=== PATIENT | female | born 2000 | race Hispanic/Latino ===

== ENCOUNTER 2022-04-14 13:52 | Emergency (ER) | payer OTHER ==
--- OUTSIDE RECORDS SUMMARY | 2022-04-14 14:00 | XMS REPORT | Continuity of Care Document ---
:2000 Author Organization [facility] t Address [address]fonso[address] [place] [address] Support Name Relationship Address Phone 1 [address] [place] [address] 2 Unavailable [address] [place] [address] [address] Unavailable Unavailable AARON HERNANDEZ SI [address] [phone] [place] [address] ANTHONY PRETTY Other Unavailable Unavailable JAMES HERNANDEZMONY SI [address] [facility] [place] [address] NONE, GIVEN Unavailable UNKNOWN [phone] UNKNONW, UNKN ARAIZA, GERMAINE Unavailable [address] [phone] [place] [address] LAYTON PRETTY GP [address] [phone] [place] [address] KILGORE, MICAELA Unavailable [address] [place] [address] GREEN, SHIN Unavailable [address] [phone] [address] [place] [address] TRIP HERNANDEZ Unavailable [address] [facility] [phone] [address] [place] [address] GREEN JESSICAM Unavailable [address] [facility] [phone] [address] [place] [address] TRIP HERNANDEZ Unavailable [address] [phone] [place] [address] JOHNATHAN HERNANDEZ SI [address] [phone] [place] [address] JOHNATHAN HERNANDEZ SI [address] [facility] [phone] [place] [address] Care Team Providers Name Role Phone NONE, NONE Primary Care Physician Unavailable TERESA CAMPBELL Attending Clinician Unavailable JUNO MANCINI Attending Clinician Unavailable ALANA SADLER Attending Clinician Unavailable Hoang_Chucky Attending Clinician Unavailable Michael De Leon Attending Clinician Unavailable SUSAN WOODARD Attending Clinician Unavailable [email or web address] Attending Clinician Unavailable Teresa Campbell Attending Clinician [phone] ANÍBAL AMADO Attending Clinician Unavailable ELMIRA CRABTREE Attending Clinician Unavailable [email or web address] Attending Clinician Unavailable Briseyda Benjamin Attending Clinician [phone] Shamir Haley V Attending Clinician Unavailable SHU TEIXEIRA Attending Clinician Unavailable JUANITO DAILEY Attending Clinician Unavailable MALACHI DICK Attending Clinician Unavailable TERESA CAMPBELL Admitting Clinician Unavailable Physician, No Primary or Family Admitting Clinician Unavailraina Roa_N Admitting Clinician Unavailable [email or web address]_J Admitting Clinician Unavailable [email or web address] Admitting Clinician Unavailable Payers Payer Name Policy Type Policy Number Effective Date Expiration Date S [facility] MEDICAID [place] [id number] 2021 00:00:00 [facility] [id number] [facility] (MEDICAID REPLACEMENT - HMO) [facility] [id number] [facility] (MEDICAID REPLACEMENT - HMO) [facility] [id number] 2021 [facility] 00:00:00 [facility] 3 SHARE PROGRAM (HMO) [place] [id number] 2020 2021 ADVANTAGE (HMO) 00:00:00 00:00:00 [facility] [id number] [facility] [id number] [facility] [id number] [employer] Problems Condition Condition Condition Status Onset Resolution Last Treating Co mments Source Name Details Category Date Date Treatment Clinician Date CONTRACTIO CONTRACTI Diagnosis Active 2021-06-11 Memoria NS ONS Active 06-11 23:04:00 l 06/11/2021 00:00: Chavez DUBOIS The 00 [place] Abnormal Abnormal Problem Active Privi a glucose Glucose 3-27 Medical tolerance Tolerance 00:00: test Test 00 BACK PAIN BACK PAIN Diagnosis Active 2021-05-20 Memoria Active 05-20 19:49:00 l 05/20/2021 00:00: Chavez hernandez [facility] [place] Nausea and Nausea and Problem Active P rivia vomiting Vomiting -20 Medica l 00:00: 00 Insufficie Insufficie Problem Active P rivia nt nt 1-20 Medical 00:00: care Care 00 19WKS 19WKS Diagnosis Active 2020-032021-01-25 Mem oria PREG/CRAMP PREG/CRAMP 03-27 23:18:00 l ING, ING, 00:00: Ruddy SPOTTING, SPOTTING, 00 VOMITNG VOMITNG Active 01/25/2021 [facility] CHILD CHILD Diagnosis Active 2021-06-02 Me moria 7-16 09:19:00 l Active 00:00: Ruddy 09/14/2020 00 [facility] Cannabinoi Problem Active [facility] Gastritis Problem Active [facility] Itching Itching Problem Active 2021-06-17 Me moria (finding) (finding) 08:12:12 l Active Ruddy Problem 06/17/2021 Medical [facility] Migraine Migraine Problem Active 2021-06-17 Memoria (disorder) (disorder) 08:12:12 l Active [place] Problem 06/17/2021 Medical [facility] Mild Mild Problem Active 2021-06-17 Memor ia depression depression 08:12:12 l (disorder) (disorder) He rmann Active Problem 06/17/2021 Medical [facility] Nausea Nausea Problem Active 2021-06-17 [place] sanjay (finding) (finding) 08:12:12 l Active Ruddy Problem 06/17/2021 [facility] Paresthesi Paresthes Problem Active 2021-06-17 Memoria a of lower [place] of 08:12:12 l extremity lower [place] (finding) extremity (finding) Active Problem 06/17/2021 Medical [facility] Patient Patient Problem Active 2021-06-17 Me moria encounter encounter 08:12:12 l status status Ruddy (finding) (finding) Active Problem 06/17/2021 [facility] Screening Screening Problem Active 2021-06-17 Memoria status status 08:12:12 l (finding) (finding) Herm joe Active Problem 06/17/2021 [facility] Severe Severe Problem Active 2021-06-17 Mem oria depression depression 08:12:12 l (disorder) (disorder) He rmann Active Problem 06/17/2021 [facility] Suicidal Suicidal Problem Active 2021-06-17 Memoria thoughts thoughts 08:12:12 l (finding) (finding) Herm joe Active Problem 06/17/2021 Medical [facility] Vitamin D Vitamin D Problem Active 2021-06-17 Memoria deficiency deficiency 08:12:12 l (disorder) (disorder) He rmann Active Problem 06/17/2021 [facility] OTH OTH Diagnosis Active 2021-06-11 Mem oria 23:04:00 l RELATED RELATED [place] CONDITIONS CONDITIONS , THIRD , THIRD Active [facility] 39 WEEKS 39 WEEKS Diagnosis Active 2021-06-11 Memoria GESTATION GESTATION 23:04:00 l OF OF Ruddy Active [facility] History of History Problem Resolve 2021-06-17 Memoria - of - d 08:12:12 l infectious infectious He ann disease disease (context-d (context-d ependent ependent category) category) Resolved Problem 06/17/2021 [facility] Dizziness Problem Active 2021-06-17 Me moria (finding) Dizziness 08:12:12 l (finding) Ruddy Active Problem 06/17/2021 [facility] Patient Patient Problem Resolve 2021-06-17 2021-06-17 Memoria currently currently d 7-10 08:12:12 08:12:12 l 00:00: Chavez hernandez (finding) (finding) 00 Resolved 09/08/2020 Problem 06/17/2021 [facility] History of Past Illness Condition Condition Condition Status Onset Resolution Last Treating Co mments Source Name Details Category Date Date Treatment Clinician Date Other Other Problem 2021-05-22 2021-05-22 M emoria specified specified 05-20 23:03:24 23:03:24 l diseases diseases 17:00: Chavez n and and 00 conditions conditions complicati complicati ng ng 05/20/2021 05/22/2021 [facility] 36 weeks 36 weeks Problem 2021-05-22 2021-05-22 Memoria gestation gestation 05-20 23:03:24 23:03:24 l of of 17:00: Ruddy 00 05/20/2021 05/22/2021 [facility] Unspecifie Unspecifi Problem 2021-05-22 2021-05-22 Memoria d ed 05-20 23:03:24 23:03:24 l infection infection 17:00: Herm joe of urinary of urinary 00 tract in tract in , , third third trimester trimester 05/20/2021 05/22/2021 [facility] Allergies, Adverse Reactions, Alerts Allergy Allergy Status Severity Reaction(s) Onset Inactive Treating Comm ents Source Name Type Date Date Clinician No Known DA Active U 2004-0 [facility]03 [place] [facility] No Known DA Active U 2004[facility]0 [facility] Drug [facility]03 [place] [facility] 00:[facility]: d s 00 [facility] No Known DA Active U 2004-0 [facility] Food 5[facility]03 [place] Allergie 00:[facility]: d s 00 [facility] No Known DA Active U 2004-0 [facility] Other 5-03 [place] Allergie 00:00: d s [facility] Center No Known DA Active [facility] Social History Social Habit Start Date Stop Date Quantity Comments Source ASSERTION 2020-09-22 [facility] 00:00:00 of Medicine History [facility] ge Alcohol Comment of Medici ne History [facility] ge Alcohol Std Drinks of Med icine History [facility] ge Alcohol Binge of Medicine Tobacco use and 2020-12-03 2020-12-03 Smokeless tobacco [facility] exposure 00:00:00 00:00:00 non-user of Medicine Alcohol intake 2020-12-03 2020-12-03 Lifetime [facility] Col lege 00:00:00 00:00:00 non-drinker of Medicine (finding) History [facility] 2020-12-03 2020-12-03 1 [facility] Tala ge Alcohol Frequency 00:00:00 00:00:00 of Medi cine Social History 2017-09-04 2017-09-04 [facility] 20:19:46 20:19:46 Sex Ass[birth year] At [birth year] [facility] Co ingridege 00:00:00 00:00:00 of Medicine Smoking Status Start Date Stop Date Source Never smoked tobacco [facility] Dominic ege of Medicine Medications Ordered Filled Start Stop Current Ordering Indication Dosage Frequency Signature Comments Components Source Medication Medication Date Date Medication? Clinician (SIG) Name Name ibuprofen Yes 600 mg = 1 Me moria 600 mg oral 4-14 tab, PO, l tablet 19:50: Q6Hnow, # Chavez n 00 60 tab, 1 Refill(s), [id number], 165.1, cm, 06/11/21 22:33:00 CDT, Height, 75.455, kg, 06/11/21 22:33:00 CDT, Weight No 1 tab, Memoria Multivitami 4-14 Route: PO, l ns oral 14:00: Drug Form: Herm joe tablet 00 TAB, Dosing Weight 75.455, kg, Daily, Start date: 06/13/21 9:00:00 CDT, Duration: 30 day, Stop date: 07/12/21 9:00:00 CDT, 0 Saline No Notes: Memoria Flush 0.9% 4-14 (Same as: l 02:00: BD [place] Posiflush) M-M-R II No Notes: Memoria subcutaneou 4-13 (Same as: l s injection 15:00: M-M-R II) H erm (measles-m umps-rubel la virus vaccine 0.5 ml INJ VL) WASTE: F/P - Red; E -Red GIVE PRIOR TO DISCHARGE Lactated No 1,000 mL, [place] Ringers 4-13 1,000 l (Bolus) IV 15:00: ml/hr, Arminda nn 00 Infuse Over: 1 hr, Route: IV, 1,000, Drug form: INJ, ONCALL, Dosing Weight 75.455 kg, Start date: 06/12/21 10:00:00 CDT, Duration: 1 doses or times, For OB hemorrhage per physician direction, 0 oxytocin No Notes: Memoria 4-13 (Same as: l 15:00: Pitocin) Hazardous Drug Group 3:Reproduc tive risk Hazardous Drug -- Refer to safe handling procedure PPE Matrix misoprostol No Notes: [place]jay 4-13 (Same l 15:00: as:Cytotec Ruddy 00 ) Hazardous Drug Group 3:Reproduc tive risk Hazardous Drug -- Refer to safe handling procedure PPE Matrix Take with food methylergon No Notes: [place] ovine 4-13 (Same l 15:00: as:Metherg ine) Hazardous Drug Group 3:Reproduc tive risk Hazardous Drug -- Refer to safe handling procedure PPE Matrix atropine-di No Notes: [place] phenoxylate 4-13 (Same As: l 0.025 15:00: Lomotil) Ruddy mg-2.5 mg 00 MAX Adult oral tablet dose = 8 tabs/day carboprost No Notes: Memor ia 4-13 (Same As: l 15:00: Hemabate) tranexamic No Notes: Memor ia acid + 4-13 (Same As: l Sodium 15:00: Cyklokapro [place] nn Chloride 00 n) 0.9% IV 100 mL ibuprofen No Notes: Memori a 4-13 (Same as: l 15:00: Motrin) "Do Not Crush" Take with food. Lactated No 1,000 mL, [place] sanjay Ringers IV 4-13 Rate: 100 l 1,000 mL 14:03: ml/hr, Ruddy 00 Infuse over: 10 hr, Route: IV, Dosing Weight 75.455 kg, Total Volume: 1,000, see special instructio n for rate while completing infusion from recovery for the 20 Units of Oxytocin., Start date: 06/12/21 9:03:00 CDT, Duration:. .. ondansetron No Notes: [place] 4-13 (Same as: l 14:03: Zofran) MEDICATION WASTE Product Size: 4 mg Product Wasted: ___ mg docusate No Notes: Memoria 4-13 (Same as: l 14:03: Colace) [place] 00 (Do Not Crush) bisacodyl No Notes: Memori a -13 (Same As: l 14:03: Dulcolax, [place] 00 Correctol) (Do Not Crush) "Do Not Crush" lanolin No 1 appl, Memoria topical 06-12 Route: l 14:03: TOP, PRN, Ruddy 00 Drug form: OINT, PRN Other -See Comment, Start date: 06/12/21 9:03:00 CDT, Duration: 30 day, Stop date: 07/12/21 9:02:00 CDT, 0 Dermoplast No Notes: Memor ia Pain 06-12 (Same As: l Relieving 14:03: Dermoplast He rmann 20%-0.5% 00 ) WASTE: topical Aerosol - spray Return to Pharmacy FOR EXTERNAL USE ONLY oxytocin 30 No Notes: [place] sanjay units in NS - Hazardous l 500 mL 14:03: Drug Group Arminda nn (Titrate) 00 3:Reproduc IV 30 unit tive risk Hazardous Drug -- Refer to safe handling procedure PPE Matrix Saline No Notes: Memoria Flush 0.9% 06-12 (Same as: l 14:03: BD [place] 00 Posiflush) acetaminoph No Notes: [place] en-hydrocod - (Same as: l one 325 14:03: [place] mg-5 mg 00 325/5) Do oral tablet not exceed 4gm/day of acetaminop hen. acetaminoph No Notes: Do M emoria en-hydrocod -13 not exceed l one 325 14:03: 4gm/day of Herm joe mg-10 mg 00 acetaminop oral tablet hen. (Same as: [place] 325/10) PNV Yes PO, Daily, Memoria 4-13 0 l 04:40: Refill(s) [place] 00 carboprost No Notes: Memor ia -13 (Same As: l 04:00: Hemabate) [place] 00 tranexamic No Notes: Memor ia acid + 4-13 (Same As: l Sodium 04:00: Cyklokapro [place] nn Chloride 00 n) 0.9% IV 100 mL ibuprofen No Notes: Memori a 4-13 (Same as: l 04:00: Motrin) [place] 00 "Do Not Crush" Take with food. Lactated No 1,000 mL, [place] Ringers 4-13 1,000 l (Bolus) IV 04:00: ml/hr, Arminda nn 00 Infuse Over: 1 hr, Route: IV, 1,000, Drug form: INJ, ONCALL, Dosing Weight 75.455 kg, Start date: 06/11/21 23:00:00 CDT, Duration: 1 doses or times, For OB hemorrhage per physician direction, 0 oxytocin No Notes: Memoria 4-13 (Same as: l 04:00: Pitocin) Ruddy 00 Hazardous Drug Group 3:Reproduc tive risk Hazardous Drug -- Refer to safe handling procedure PPE Matrix misoprostol No Notes: [place]jay 4-13 (Same l 04:00: as:Cytotec Ruddy ) Hazardous Drug Group 3:Reproduc tive risk Hazardous Drug -- Refer to safe handling procedure PPE Matrix Take with food methylergon No Notes: [place] ovine 4-13 (Same l 04:00: as:Metherg Ruddy ine) Hazardous Drug Group 3:Reproduc tive risk Hazardous Drug -- Refer to safe handling procedure PPE Matrix atropine-di No Notes: [place] phenoxylate 4-13 (Same As: l 0.025 04:00: Lomotil) [place] mg-2.5 mg 00 MAX Adult oral tablet dose = 8 tabs/day Ropivacaine No Notes: [place] 0.2% + 4-13 (Same as l fentaNYL 2 03:57: Naropin-Christensen H ermann mcg/ml 00 blimaze) Epidural CADD 200 mL ePHEDrine No Notes: Memori a 4-13 (Same as: l 03:57: ePHEDrine [place] 00 Sulfate) phenylephri 2022-0 No 0.1 mg, 1 M emoria ne 4-13 mL, Route: l 03:57: IVP, Drug [place] 00 form: INJ, Q5Min, Dosing Weight 75.455, kg, PRN for symptomati c BP decrease, Start date: 06/11/21 22:57:00 CDT, Duration: 30 day, Stop date: 07/11/21 22:56:00 CDT, 0 Lactated No 1,000 mL, [place] sanjay Ringers 4-13 Rate: 125 l Injection 03:53: ml/hr, Chavez n IV 1,000 mL 00 Infuse over: 8 hr, Route: IV, Dosing Weight 75.455 kg, Total Volume: 1,000, see special instructio ns when infusing 20 Units of Oxytocin., Start date: 06/11/21 22:53:00 CDT, Duration: 30 day, Stop date: 07/11/21 22:52:00 CDT,... oxytocin 30 No Notes: [place]jay units in NS 4-13 Hazardous l 500 mL 03:53: Drug Group [place] nn (Bolus) IV 00 3:Reproduc 10.02 unit tive risk Hazardous Drug -- Refer to safe handling procedure PPE Matrix oxytocin 30 No Notes: [place] units in NS 4-13 Hazardous l 500 mL IV 03:53: Drug Group He rmann 19.98 unit 00 3:Reproduc tive risk Hazardous Drug -- Refer to safe handling procedure PPE Matrix butorphanol No Notes: [place] sanjay 4-13 (Same As: l 03:53: Stadol) [place] 00 acetaminoph No Notes: [place] en-hydrocod 4-13 (Same as: l one 325 03:53: [place] mg-5 mg 00 325/5) Do oral tablet not exceed 4gm/day of acetaminop hen. acetaminoph No Notes: Do M emoria en-hydrocod 4-13 not exceed l one 325 03:53: 4gm/day of Herm joe mg-10 mg 00 acetaminop oral tablet hen. (Same as: [place] 325/10) ondansetron No Notes: [place] sanjay 4-13 (Same as: l 03:53: Zofran) [place] 00 MEDICATION WASTE Product Size: 4 mg Product Wasted: ___ mg lidocaine No Notes: Memori a 1% -13 (Same as: l injectable 03:53: Xylocaine) H ermann solution lidocaine No Notes: Memori a 1% -13 (Same as: l 03:53: Xylocaine) [place] 00 terbutaline No Notes: El sanjay - DO NOT l 03:53: USE IN [place] PIECE WORK CHECKER AREA (Same As: [place]) Dermoplast No Notes: Memor ia Pain 06-12 (Same As: l Relieving 03:53: Dermoplast He rmann 20%-0.5% ) WASTE: topical Aerosol - spray Return to Pharmacy FOR EXTERNAL USE ONLY oxytocin 30 No Notes: [place] units in NS - Hazardous l 500 mL 03:53: Drug Group [place] nn (Titrate) 00 3:Reproduc IV 30 unit tive risk Hazardous Drug -- Refer to safe handling procedure PPE Matrix Cephalexin Yes 500 mg = 1 M emoria 500 MG Oral - cap, PO, l Capsule 02:55: BID, X 7 Chavez n [Keflex] day, # 14 cap, 0 Refill(s), Pharmacy: [facility] #[id number], 162.56, cm, 05/20/21 19:41:00 CDT, Height, 71.818, kg, 05/20/21 19:41:00 CDT, Weight Acetaminoph No Notes: [place]jay en 325 MG / - (Same as: l Hydrocodone 01:03: [place] Arminda nn Bitartrate 00 325/5) Do 5 MG Oral not exceed Tablet 4gm/day of acetaminop hen. Metoclopram 2020-03 Yes 10 mg = 1 M emoria ld 10 MG 1-27 tab, PO, l Oral Tablet 05:37: QID, X 10 H ermann [Reglan] day, # 40 tab, 0 Refill(s) Ondansetron 2020-03 Yes 4 mg = 1 Me moria 4 MG 1-27 tab, PO, l Disintegrat 05:37: TID, PRN He rmann ing Tablet 00 Nausea / Vomiting, Dissolve tab under tongue, X 3 day, # 10 tab, 0 Refill(s) Cephalexin 2020-03 Yes 500 mg = 1 M emoria 500 MG Oral 03-28 cap, PO, l Capsule 05:37: BID, X 7 Chavez n [Keflex] 00 day, # 14 cap, 0 Refill(s) Rocephin + 2020-03 No Notes: Memor ia Sodium 03-28 (Same As: l Chloride 05:08: Rocephin). Her pierson 0.9% IV 100 00 Use with mL 100 mL NS and infuse over 30 min MEDICATION WASTE Product Size: 1000 mg Product Wasted: ___ mg Benadryl 2020-03 No 12.5 mg, Memor ia 03-28 Route: l 04:52: IVP, ONCE, [place] Dosing Weight 65.199, kg, Priority: STAT, Start date: 01/25/21 22:52:00 MUSEUM LIBRARIAN, Stop date: 01/25/21 22:52:00 MUSEUM LIBRARIAN Saline 2020-03 No Notes: Memoria Flush 0.9% 03-28 Same as: l 03:24: BD [place] Posiflush Sterile Sodium 2020-03 No 1,000 mL, Memori a Chloride 03-28 1000 l 0.9% 03:24: ml/hr, Ruddy (Bolus) IV 00 Infuse Over: 1 hr, Route: IV, 1,000, Drug form: INJ, ONCE, Priority: STAT, Dosing Weight 60.966 kg, Start date: 01/25/21 21:24:00 MUSEUM LIBRARIAN, Stop date: 01/25/21 21:24:00 MUSEUM LIBRARIAN, 0 Metoclopram 2020-03 No Notes: [place] sanjay ld 03-28 (Same as: l 03:24: Reglan) [place] 00 NS (Bolus) 2020-03 No 1,000 mL, Me moria IV 03-28 1,000 l 03:24: ml/hr, [place] 00 Infuse Over: 1 hr, Route: IV, 1,000, Drug form: INJ, ONCE, Priority: STAT, Dosing Weight 60.966 kg, Start date: 01/25/21 21:24:00 MUSEUM LIBRARIAN, Stop date: 01/25/21 21:24:00 MUSEUM LIBRARIAN, 0 2020-03 Yes 1{capsu Take 1 Bayl or Vit-Fe 0-04 le} capsule by [place] Fumarate-FA 08:22: mouth of ( 32 daily. Medicin OR) e 2020-03 Yes 1{capsu Take 1 Bayl or Vit-Fe 0-04 le} capsule by [place] Fumarate-FA 08:22: mouth of ( 32 daily. Medicin OR) e 2020-03 Yes 1{capsu Take 1 Bayl or Vit-Fe 0-04 le} capsule by [place] Fumarate-FA 08:22: mouth of ( 32 daily. Medicin OR) e Vitamin D3 Yes 50,000 Memor ia 50,000 intl 9-11 IntlUnit = l units oral 21:09: 1 cap, PO, H ermann capsule 00 qWeek, # 12 cap, 0 Refill(s), Pharmacy: [facility] [id number] sertraline Yes 25 mg = 1 Me moria 25 mg oral 9-11 tab, PO, l tablet 21:09: Daily, # Ruddy 00 30 tab, 1 Refill(s), Pharmacy: [facility] [id number] Vitamin D3 Yes 50,000 Memor ia 50,000 intl 9-11 IntlUnit = l units oral 21:09: 1 cap, PO, H ermann capsule 00 qWeek, # 12 cap, 0 Refill(s), Pharmacy: [facility] [id number] sertraline Yes 25 mg = 1 Me moria 25 mg oral 9-11 tab, PO, l tablet 21:09: Daily, # [place] 00 30 tab, 1 Refill(s), Pharmacy: [facility] [address] Vitamin D3 Yes 50,000 Memor ia 50,000 intl 9-11 IntlUnit = l units oral 21:09: 1 cap, PO, H ermann capsule 00 qWeek, # 12 cap, 0 Refill(s), Pharmacy: [facility] [id number] sertraline Yes 25 mg = 1 Me moria 25 mg oral 9-11 tab, PO, l tablet 21:09: Daily, # [place] 00 30 tab, 1 Refill(s), Pharmacy: [facility] [id number] levocetiriz 2018-0 Yes 5 mg = 1 Me moria ine 5 mg 7-20 tab, PO, l oral tablet 18:55: QPM, PRN He rmann 00 itchinig, # 30 tab, 0 Refill(s), Pharmacy: [facility] [id number] SUMAtriptan 2018-0 No 25 mg = 1 M emoria 25 mg oral 7-20 tab, PO, l tablet 18:55: Daily, PRN Arminda nn 00 for migraine headache, may repeat dose in 2 hours if needed, X 18 day, # 18 tab, 0 Refill(s), Pharmacy: [facility] [id number] levocetiriz 2018-0 Yes 5 mg = 1 Me moria ine 5 mg 7-20 tab, PO, l oral tablet 18:55: QPM, PRN He rmann 00 itchinig, # 30 tab, 0 Refill(s), Pharmacy: [facility] [id number] SUMAtriptan 2018-0 No 25 mg = 1 M emoria 25 mg oral 7-20 tab, PO, l tablet 18:55: Daily, PRN Arminda nn 00 for migraine headache, may repeat dose in 2 hours if needed, X 18 day, # 18 tab, 0 Refill(s), Pharmacy: [facility] [id number] levocetiriz 2018-0 Yes 5 mg = 1 Me moria ine 5 mg 7-20 tab, PO, l oral tablet 18:55: QPM, PRN rmann 00 itchinig, # 30 tab, 0 Refill(s), Pharmacy: [facility] [id number] SUMAtriptan 2018-0 No 25 mg = 1 M emoria 25 mg oral 7-20 tab, PO, l tablet 18:55: Daily, PRN Arminda nn 00 for migraine headache, may repeat dose in 2 hours if needed, X 18 day, # 18 tab, 0 Refill(s), Pharmacy: [facility] [id number] azithromyci azithromyci No azithromyc [facility]ia n 500 mg n 500 mg in 500 mg Me dical tablet TK 2 tablet TK 2 tablet TK TS PO ONCE TS PO ONCE 2 TS PO FOR 1 DOSE FOR 1 DOSE ONCE FOR 1 DOSE Biotene Dry Biotene Dry No 30mL BID Biotene [facility] Mouth Oral Mouth Oral Dry Mouth Medical Rinse Rinse Oral Rinse mouthwash mouthwash mouthwash Take 30 mL Take 30 mL Take 30 mL twice a day twice a day twice a by mucous by mucous day by route for route for mucous 30 days. 30 days. route for 30 days. cholecalcif cholecalcif No cholecalci [facility] marcie marcie ferol Medical (vitamin (vitamin (vitamin D3) 1,250 D3) 1,250 D3) 1,250 mcg (50,000 mcg (50,000 mcg unit) unit) (50,000 capsule TK capsule TK unit) 1 C PO Q WK 1 C PO Q WK capsule TK FOR 12 WKS FOR 12 WKS 1 C PO Q WK FOR 12 WKS clindamycin clindamycin No clindamyci [facility] 2 % vaginal 2 % vaginal n 2 % Medical cream I 1 cream I 1 vaginal APL APL cream I 1 VAGINALLY VAGINALLY APL QD FOR 7 QD FOR 7 VAGINALLY DAYS DAYS QD FOR 7 DAYS clobetasol clobetasol No clobetasol [facility] 0.05 % 0.05 % 0.05 % Medical topical topical topical cream APPLY cream APPLY cream A THIN A THIN APPLY A LAYER TO LAYER TO THIN LAYER THE THE TO THE AFFECTED AFFECTED AFFECTED AREA(S) BY AREA(S) BY AREA(S) BY TOPICAL TOPICAL TOPICAL ROUTE 2 ROUTE 2 ROUTE 2 TIMES PER TIMES PER TIMES PER DAY DAY DAY doxycycline doxycycline No doxycyclin [facility] hyclate 100 hyclate 100 e hyclate Medical mg tablet mg tablet 100 mg TK 1 T PO TK 1 T PO tablet TK BID FOR 7 BID FOR 7 1 T PO BID DAYS DAYS FOR 7 DAYS doxycycline doxycycline No doxycyclin [facility] monohydrate monohydrate e M edical 100 mg 100 mg monohydrat tablet 1 tablet 1 e 100 mg p.o BID p.o BID tablet 1 p.o BID fluconazole fluconazole No 1 Q1D fluconazol [facility] 150 mg 150 mg e 150 mg Medical tablet Take tablet Take tablet 1 tablet 1 tablet Take 1 every day every day tablet by oral by oral every day route. route. by oral route. Kristalose Kristalose No Kristalose [facility] 20 gram 20 gram 20 gram Medica l oral packet oral packet oral MIX AND MIX AND packet MIX DRINK 1 DRINK 1 AND DRINK PACKET BY PACKET BY 1 PACKET MOUTH EVERY MOUTH EVERY BY MOUTH DAY DAY EVERY DAY lorazepam 1 lorazepam 1 No lorazepam [facility] mg tablet mg tablet 1 mg Medic al TAKE ONE TAKE ONE tablet (1) (1) TAKE ONE TABLET(S) TABLET(S) (1) BY MOUTH 1 BY MOUTH 1 TABLET(S) HOUR PRIOR HOUR PRIOR BY MOUTH 1 TO SURGERY TO SURGERY HOUR PRIOR WITH A WITH A TO SURGERY SMALL SIP SMALL SIP WITH A OF WATER. OF WATER. SMALL SIP OF WATER. metronidazo metronidazo No metronidaz [facility] le 500 mg le 500 mg ole 500 mg Medical tablet TAKE tablet TAKE tablet 1 TABLET BY 1 TABLET BY TAKE 1 MOUTH TWICE MOUTH TWICE TABLET BY DAILY FOR 7 DAILY FOR 7 MOUTH DAYS DAYS TWICE DAILY FOR 7 DAYS nystatin nystatin No nystatin [facility] via 100,000 100,000 100,000 Medica l unit/gram unit/gram unit/gram topical topical topical cream APPLY cream APPLY cream TO THE TO THE APPLY TO AFFECTED AFFECTED THE AREA(S) BY AREA(S) BY AFFECTED TOPICAL TOPICAL AREA(S) BY ROUTE 2 ROUTE 2 TOPICAL TIMES PER TIMES PER ROUTE 2 DAY DAY TIMES PER DAY nystatin nystatin No nystatin [facility] via 100,000 100,000 100,000 Medica l unit/gram unit/gram unit/gram topical topical topical ointment ointment ointment JAVIER EXT AA JAVIER EXT AA JAVIER EXT AA BID BID BID Off Deep Off Deep No Off Deep Nat via Self 25 % Self 25 % Self 25 % Medical topical topical topical spray spray spray ondansetron ondansetron No ondansetro [facility] 4 mg 4 mg n 4 mg Medical disintegrat disintegrat disintegra ing tablet ing tablet ting Place [address] Place 1 tablet tablet [address] 1 times a day times a day tablet 3 by by times a translingua translingua day by l route for l route for translingu 15 days. 15 days. al route for 15 days. pantoprazol pantoprazol No pantoprazo [facility] e 20 mg e 20 mg le 20 mg Medic al tablet,nandini tablet,nandini tablet,del yed release yed release ayed Take 2 Take 2 release tablets tablets Take 2 every day every day tablets by oral by oral every day route for route for by oral 30 days. 30 days. route for 30 days. pantoprazol pantoprazol No pantoprazo [facility] e 40 mg e 40 mg le 40 mg Medic al tablet,nandini tablet,nandini tablet,del yed release yed release ayed Take 1 Take 1 release tablet tablet Take 1 every day every day tablet by oral by oral every day route at route at by oral bedtime for bedtime for route at 60 days. 60 days. bedtime for 60 days. Previfem Previfem No Previfem [facility] via 0.25 mg-35 0.25 mg-35 0.25 mg-35 Medical mcg tablet mcg tablet mcg tablet Take 1 Take 1 Take 1 tablet tablet tablet every day every day every day by oral by oral by oral route for route for route for 28 days. 28 days. 28 days. scopolamine scopolamine No scopolamin [facility] 1 mg over 3 1 mg over 3 e 1 mg Medical days days over 3 transdermal transdermal days patch Apply patch Apply transderma 1 patch 1 patch l patch every 72 every 72 Apply 1 hours by hours by patch transdermal transdermal every 72 route as route as hours by directed. directed. transderma l route as directed. sertraline sertraline No sertraline [facility] 25 mg 25 mg 25 mg Medical tablet tablet tablet terconazole terconazole No 1applic Q1D terconazol [facility] 0.4 % 0.4 % ator(s) e 0.4 % Medical vaginal vaginal ful vaginal cream cream cream Insert 1 Insert 1 Insert 1 applicatorf applicatorf applicator ul every ul every ful every day by day by day by vaginal vaginal vaginal route for 7 route for 7 route for days. days. 7 days. triamcinolo triamcinolo No triamcinol [facility] ne ne one Medical acetonide acetonide acetonide 0.1 % 0.1 % 0.1 % topical topical topical cream APPLY cream APPLY cream THIN LAYER THIN LAYER APPLY THIN TOPICALLY TOPICALLY LAYER TO THE TO THE TOPICALLY AFFECTED AFFECTED TO THE AREA TWICE AREA TWICE AFFECTED DAILY DAILY AREA TWICE DAILY Vitafol Vitafol No Vitafol [facility] Ultra 29 mg Ultra 29 mg Ultra 29 Medical iron-1 iron-1 mg iron-1 mg-200 mg mg-200 mg mg-200 mg capsule capsule capsule TAKE 1 TAKE 1 TAKE 1 CAPSULE BY CAPSULE BY CAPSULE BY MOUTH DAILY MOUTH DAILY MOUTH DAILY Zofran 4 mg Zofran 4 mg No 1 TID Zofran 4 [facility] tablet Take tablet Take mg tablet Medical 1 tablet 3 1 tablet 3 Take 1 times a day times a day tablet 3 by oral by oral times a route for route for day by 15 days. 15 days. oral route for 15 days. azithromyci azithromyci No azithromyc [facility] n 500 mg n 500 mg in 500 mg Me dical tablet TK 2 tablet TK 2 tablet TK TS PO ONCE TS PO ONCE 2 TS PO FOR 1 DOSE FOR 1 DOSE ONCE FOR 1 DOSE Biotene Dry Biotene Dry No 30mL BID Biotene [facility] Mouth Oral Mouth Oral Dry Mouth Medical Rinse Rinse Oral Rinse mouthwash mouthwash mouthwash Take 30 mL Take 30 mL Take 30 mL twice a day twice a day twice a by mucous by mucous day by route for route for mucous 30 days. 30 days. route for 30 days. cholecalcif cholecalcif No cholecalci [facility] marcie marcie ferol Medical (vitamin (vitamin (vitamin D3) 1,250 D3) 1,250 D3) 1,250 mcg (50,000 mcg (50,000 mcg unit) unit) (50,000 capsule TK capsule TK unit) 1 C PO Q WK 1 C PO Q WK capsule TK FOR 12 WKS FOR 12 WKS 1 C PO Q WK FOR 12 WKS clindamycin clindamycin No clindamyci [facility] 2 % vaginal 2 % vaginal n 2 % Medical cream I 1 cream I 1 vaginal APL APL cream I 1 VAGINALLY VAGINALLY APL QD FOR 7 QD FOR 7 VAGINALLY DAYS DAYS QD FOR 7 DAYS clobetasol clobetasol No clobetasol [facility] 0.05 % 0.05 % 0.05 % Medical topical topical topical cream APPLY cream APPLY cream A THIN A THIN APPLY A LAYER TO LAYER TO THIN LAYER THE THE TO THE AFFECTED AFFECTED AFFECTED AREA(S) BY AREA(S) BY AREA(S) BY TOPICAL TOPICAL TOPICAL ROUTE 2 ROUTE 2 ROUTE 2 TIMES PER TIMES PER TIMES PER DAY DAY DAY doxycycline doxycycline No doxycyclin [facility] hyclate 100 hyclate 100 e hyclate Medical mg tablet mg tablet 100 mg TK 1 T PO TK 1 T PO tablet TK BID FOR 7 BID FOR 7 1 T PO BID DAYS DAYS FOR 7 DAYS doxycycline doxycycline No doxycyclin [facility] monohydrate monohydrate e M edical 100 mg 100 mg monohydrat tablet 1 tablet 1 e 100 mg p.o BID p.o BID tablet 1 p.o BID fluconazole fluconazole No 1 Q1D fluconazol [facility] 150 mg 150 mg e 150 mg Medical tablet Take tablet Take tablet 1 tablet 1 tablet Take 1 every day every day tablet by oral by oral every day route. route. by oral route. Kristalose Kristalose No Kristalose [facility] 20 gram 20 gram 20 gram Medica l oral packet oral packet oral MIX AND MIX AND packet MIX DRINK 1 DRINK 1 AND DRINK PACKET BY PACKET BY 1 PACKET MOUTH EVERY MOUTH EVERY BY MOUTH DAY DAY EVERY DAY lorazepam 1 lorazepam 1 No lorazepam [facility] mg tablet mg tablet 1 mg Medic al TAKE ONE TAKE ONE tablet (1) (1) TAKE ONE TABLET(S) TABLET(S) (1) BY MOUTH 1 BY MOUTH 1 TABLET(S) HOUR PRIOR HOUR PRIOR BY MOUTH 1 TO SURGERY TO SURGERY HOUR PRIOR WITH A WITH A TO SURGERY SMALL SIP SMALL SIP WITH A OF WATER. OF WATER. SMALL SIP OF WATER. metronidazo metronidazo No metronidaz [facility] le 500 mg le 500 mg ole 500 mg Medical tablet TAKE tablet TAKE tablet 1 TABLET BY 1 TABLET BY TAKE 1 MOUTH TWICE MOUTH TWICE TABLET BY DAILY FOR 7 DAILY FOR 7 MOUTH DAYS DAYS TWICE DAILY FOR 7 DAYS nystatin nystatin No nystatin Nat via 100,000 100,000 100,000 Medica l unit/gram unit/gram unit/gram topical topical topical cream APPLY cream APPLY cream TO THE TO THE APPLY TO AFFECTED AFFECTED THE AREA(S) BY AREA(S) BY AFFECTED TOPICAL TOPICAL AREA(S) BY ROUTE 2 ROUTE 2 TOPICAL TIMES PER TIMES PER ROUTE 2 DAY DAY TIMES PER DAY nystatin nystatin No nystatin Nat via 100,000 100,000 100,000 Medica l unit/gram unit/gram unit/gram topical topical topical ointment ointment ointment JAVIER EXT AA JAVIER EXT AA JAVIER EXT AA BID BID BID Off Deep Off Deep No Off Deep Nat via Self 25 % Self 25 % Self 25 % Medical topical topical topical spray spray spray ondansetron ondansetron No ondansetro [facility] 4 mg 4 mg n 4 mg Medical disintegrat disintegrat disintegra ing tablet ing tablet ting Place [address] Place 1 tablet tablet [address] 1 times a day times a day tablet 3 by by times a translingua translingua day by l route for l route for translingu 15 days. 15 days. al route for 15 days. pantoprazol pantoprazol No pantoprazo [facility] e 20 mg e 20 mg le 20 mg Medic al tablet,nandini tablet,nandini tablet,del yed release yed release ayed Take 2 Take 2 release tablets tablets Take 2 every day every day tablets by oral by oral every day route for route for by oral 30 days. 30 days. route for 30 days. pantoprazol pantoprazol No pantoprazo [facility] e 40 mg e 40 mg le 40 mg Medic al tablet,nandini tablet,nandini tablet,del yed release yed release ayed Take 1 Take 1 release tablet tablet Take 1 every day every day tablet by oral by oral every day route at route at by oral bedtime for bedtime for route at 60 days. 60 days. bedtime for 60 days. Previfem Previfem No Previfem [facility] via 0.25 mg-35 0.25 mg-35 0.25 mg-35 Medical mcg tablet mcg tablet mcg tablet Take 1 Take 1 Take 1 tablet tablet tablet every day every day every day by oral by oral by oral route for route for route for 28 days. 28 days. 28 days. scopolamine scopolamine No scopolamin [facility] 1 mg over 3 1 mg over 3 e 1 mg Medical days days over 3 transdermal transdermal days patch Apply patch Apply transderma 1 patch 1 patch l patch every 72 every 72 Apply 1 hours by hours by patch transdermal transdermal every 72 route as route as hours by directed. directed. transderma l route as directed. sertraline sertraline No sertraline [facility] 25 mg 25 mg 25 mg Medical tablet tablet tablet terconazole terconazole No 1applic Q1D terconazol [facility] 0.4 % 0.4 % ator(s) e 0.4 % Medical vaginal vaginal ful vaginal cream cream cream Insert 1 Insert 1 Insert 1 applicatorf applicatorf applicator ul every ul every ful every day by day by day by vaginal vaginal vaginal route for 7 route for 7 route for days. days. 7 days. triamcinolo triamcinolo No triamcinol [facility] ne ne one Medical acetonide acetonide acetonide 0.1 % 0.1 % 0.1 % topical topical topical cream APPLY cream APPLY cream THIN LAYER THIN LAYER APPLY THIN TOPICALLY TOPICALLY LAYER TO THE TO THE TOPICALLY AFFECTED AFFECTED TO THE AREA TWICE AREA TWICE AFFECTED DAILY DAILY AREA TWICE DAILY Vitafol Vitafol No Vitafol [facility] Ultra 29 mg Ultra 29 mg Ultra 29 Medical iron-1 iron-1 mg iron-1 mg-200 mg mg-200 mg mg-200 mg capsule capsule capsule TAKE 1 TAKE 1 TAKE 1 CAPSULE BY CAPSULE BY CAPSULE BY MOUTH DAILY MOUTH DAILY MOUTH DAILY Zofran 4 mg Zofran 4 mg No 1 TID Zofran 4 [facility] tablet Take tablet Take mg tablet Medical 1 tablet 3 1 tablet 3 Take 1 times a day times a day tablet 3 by oral by oral times a route for route for day by 15 days. 15 days. oral route for 15 days. azithromyci azithromyci No azithromyc [facility] n 500 mg n 500 mg in 500 mg Me dical tablet TK 2 tablet TK 2 tablet TK TS PO ONCE TS PO ONCE 2 TS PO FOR 1 DOSE FOR 1 DOSE ONCE FOR 1 DOSE Biotene Dry Biotene Dry No 30mL BID Biotene [facility] Mouth Oral Mouth Oral Dry Mouth Medical Rinse Rinse Oral Rinse mouthwash mouthwash mouthwash Take 30 mL Take 30 mL Take 30 mL twice a day twice a day twice a by mucous by mucous day by route for route for mucous 30 days. 30 days. route for 30 days. cholecalcif cholecalcif No cholecalci [facility] marcie marcie ferol Medical (vitamin (vitamin (vitamin D3) 1,250 D3) 1,250 D3) 1,250 mcg (50,000 mcg (50,000 mcg unit) unit) (50,000 capsule TK capsule TK unit) 1 C PO Q WK 1 C PO Q WK capsule TK FOR 12 WKS FOR 12 WKS 1 C PO Q WK FOR 12 WKS clindamycin clindamycin No clindamyci [facility] 2 % vaginal 2 % vaginal n 2 % Medical cream I 1 cream I 1 vaginal APL APL cream I 1 VAGINALLY VAGINALLY APL QD FOR 7 QD FOR 7 VAGINALLY DAYS DAYS QD FOR 7 DAYS clobetasol clobetasol No clobetasol [facility] 0.05 % 0.05 % 0.05 % Medical topical topical topical cream APPLY cream APPLY cream A THIN A THIN APPLY A LAYER TO LAYER TO THIN LAYER THE THE TO THE AFFECTED AFFECTED AFFECTED AREA(S) BY AREA(S) BY AREA(S) BY TOPICAL TOPICAL TOPICAL ROUTE 2 ROUTE 2 ROUTE 2 TIMES PER TIMES PER TIMES PER DAY DAY DAY doxycycline doxycycline No doxycyclin [facility] hyclate 100 hyclate 100 e hyclate Medical mg tablet mg tablet 100 mg TK 1 T PO TK 1 T PO tablet TK BID FOR 7 BID FOR 7 1 T PO BID DAYS DAYS FOR 7 DAYS doxycycline doxycycline No doxycyclin [facility] monohydrate monohydrate e M edical 100 mg 100 mg monohydrat tablet 1 tablet 1 e 100 mg p.o BID p.o BID tablet 1 p.o BID fluconazole fluconazole No 1 Q1D fluconazol [facility] 150 mg 150 mg e 150 mg Medical tablet Take tablet Take tablet 1 tablet 1 tablet Take 1 every day every day tablet by oral by oral every day route. route. by oral route. Kristalose Kristalose No Kristalose [facility] 20 gram 20 gram 20 gram Medica l oral packet oral packet oral MIX AND MIX AND packet MIX DRINK 1 DRINK 1 AND DRINK PACKET BY PACKET BY 1 PACKET MOUTH EVERY MOUTH EVERY BY MOUTH DAY DAY EVERY DAY lorazepam 1 lorazepam 1 No lorazepam [facility] mg tablet mg tablet 1 mg Medic al TAKE ONE TAKE ONE tablet (1) (1) TAKE ONE TABLET(S) TABLET(S) (1) BY MOUTH 1 BY MOUTH 1 TABLET(S) HOUR PRIOR HOUR PRIOR BY MOUTH 1 TO SURGERY TO SURGERY HOUR PRIOR WITH A WITH A TO SURGERY SMALL SIP SMALL SIP WITH A OF WATER. OF WATER. SMALL SIP OF WATER. metronidazo metronidazo No metronidaz [facility] le 500 mg le 500 mg ole 500 mg Medical tablet TAKE tablet TAKE tablet 1 TABLET BY 1 TABLET BY TAKE 1 MOUTH TWICE MOUTH TWICE TABLET BY DAILY FOR 7 DAILY FOR 7 MOUTH DAYS DAYS TWICE DAILY FOR 7 DAYS nystatin nystatin No nystatin Nat via 100,000 100,000 100,000 Medica l unit/gram unit/gram unit/gram topical topical topical cream APPLY cream APPLY cream TO THE TO THE APPLY TO AFFECTED AFFECTED THE AREA(S) BY AREA(S) BY AFFECTED TOPICAL TOPICAL AREA(S) BY ROUTE 2 ROUTE 2 TOPICAL TIMES PER TIMES PER ROUTE 2 DAY DAY TIMES PER DAY nystatin nystatin No nystatin [facility] via 100,000 100,000 100,000 Medica l unit/gram unit/gram unit/gram topical topical topical ointment ointment ointment JAVIER EXT AA JAVIER EXT AA JAVIER EXT AA BID BID BID Off Deep Off Deep No Off Deep Nat via Self 25 % Self 25 % Self 25 % Medical topical topical topical spray spray spray ondansetron ondansetron No ondansetro [facility] 4 mg 4 mg n 4 mg Medical disintegrat disintegrat disintegra ing tablet ing tablet ting Place [address] Place 1 tablet tablet [address] 1 times a day times a day tablet 3 by by times a translingua translingua day by l route for l route for translingu 15 days. 15 days. al route for 15 days. pantoprazol pantoprazol No pantoprazo [facility] e 20 mg e 20 mg le 20 mg Medic al tablet,nandini tablet,nandini tablet,del yed release yed release ayed Take 2 Take 2 release tablets tablets Take 2 every day every day tablets by oral by oral every day route for route for by oral 30 days. 30 days. route for 30 days. pantoprazol pantoprazol No pantoprazo [facility] e 40 mg e 40 mg le 40 mg Medic al tablet,nandini tablet,nandini tablet,del yed release yed release ayed Take 1 Take 1 release tablet tablet Take 1 every day every day tablet by oral by oral every day route at route at by oral bedtime for bedtime for route at 60 days. 60 days. bedtime for 60 days. ParaGard T ParaGard T No ParaGard T [facility] [id number] Med ical square mm square mm square mm intrauterin intrauterin intrauteri e device e device ne device Previfem Previfem No Previfem Nat via 0.25 mg-35 0.25 mg-35 0.25 mg-35 Medical mcg tablet mcg tablet mcg tablet Take 1 Take 1 Take 1 tablet tablet tablet every day every day every day by oral by oral by oral route for route for route for 28 days. 28 days. 28 days. scopolamine scopolamine No scopolamin [facility] 1 mg over 3 1 mg over 3 e 1 mg Medical days days over 3 transdermal transdermal days patch Apply patch Apply transderma 1 patch 1 patch l patch every 72 every 72 Apply 1 hours by hours by patch transdermal transdermal every 72 route as route as hours by directed. directed. transderma l route as directed. sertraline sertraline No sertraline [facility] 25 mg 25 mg 25 mg Medical tablet tablet tablet terconazole terconazole No 1applic Q1D terconazol [facility] 0.4 % 0.4 % ator(s) e 0.4 % Medical vaginal vaginal ful vaginal cream cream cream Insert 1 Insert 1 Insert 1 applicatorf applicatorf applicator ul every ul every ful every day by day by day by vaginal vaginal vaginal route for 7 route for 7 route for days. days. 7 days. triamcinolo triamcinolo No triamcinol [facility] ne ne one Medical acetonide acetonide acetonide 0.1 % 0.1 % 0.1 % topical topical topical cream APPLY cream APPLY cream THIN LAYER THIN LAYER APPLY THIN TOPICALLY TOPICALLY LAYER TO THE TO THE TOPICALLY AFFECTED AFFECTED TO THE AREA TWICE AREA TWICE AFFECTED DAILY DAILY AREA TWICE DAILY Vitafol Vitafol No Vitafol [facility] Ultra 29 mg Ultra 29 mg Ultra 29 Medical iron-1 iron-1 mg iron-1 mg-200 mg mg-200 mg mg-200 mg capsule capsule capsule TAKE 1 TAKE 1 TAKE 1 CAPSULE BY CAPSULE BY CAPSULE BY MOUTH DAILY MOUTH DAILY MOUTH DAILY Zofran 4 mg Zofran 4 mg No 1 TID Zofran 4 [facility] tablet Take tablet Take mg tablet Medical 1 tablet 3 1 tablet 3 Take 1 times a day times a day tablet 3 by oral by oral times a route for route for day by 15 days. 15 days. oral route for 15 days. azithromyci azithromyci No azithromyc [facility] n 500 mg n 500 mg in 500 mg Me dical tablet TK 2 tablet TK 2 tablet TK TS PO ONCE TS PO ONCE 2 TS PO FOR 1 DOSE FOR 1 DOSE ONCE FOR 1 DOSE Biotene Dry Biotene Dry No 30mL BID Biotene [facility] Mouth Oral Mouth Oral Dry Mouth Medical Rinse Rinse Oral Rinse mouthwash mouthwash mouthwash Take 30 mL Take 30 mL Take 30 mL twice a day twice a day twice a by mucous by mucous day by route for route for mucous 30 days. 30 days. route for 30 days. cholecalcif cholecalcif No cholecalci [facility] marcie marcie ferol Medical (vitamin (vitamin (vitamin D3) 1,250 D3) 1,250 D3) 1,250 mcg (50,000 mcg (50,000 mcg unit) unit) (50,000 capsule TK capsule TK unit) 1 C PO Q WK 1 C PO Q WK capsule TK FOR 12 WKS FOR 12 WKS 1 C PO Q WK FOR 12 WKS clindamycin clindamycin No clindamyci [facility] 2 % vaginal 2 % vaginal n 2 % Medical cream I 1 cream I 1 vaginal APL APL cream I 1 VAGINALLY VAGINALLY APL QD FOR 7 QD FOR 7 VAGINALLY DAYS DAYS QD FOR 7 DAYS clobetasol clobetasol No clobetasol [facility] 0.05 % 0.05 % 0.05 % Medical topical topical topical cream APPLY cream APPLY cream A THIN A THIN APPLY A LAYER TO LAYER TO THIN LAYER THE THE TO THE AFFECTED AFFECTED AFFECTED AREA(S) BY AREA(S) BY AREA(S) BY TOPICAL TOPICAL TOPICAL ROUTE 2 ROUTE 2 ROUTE 2 TIMES PER TIMES PER TIMES PER DAY DAY DAY doxycycline doxycycline No doxycyclin [facility] hyclate 100 hyclate 100 e hyclate Medical mg tablet mg tablet 100 mg TK 1 T PO TK 1 T PO tablet TK BID FOR 7 BID FOR 7 1 T PO BID DAYS DAYS FOR 7 DAYS doxycycline doxycycline No doxycyclin [facility] monohydrate monohydrate e M edical 100 mg 100 mg monohydrat tablet 1 tablet 1 e 100 mg p.o BID p.o BID tablet 1 p.o BID fluconazole fluconazole No 1 Q1D fluconazol [facility] 150 mg 150 mg e 150 mg Medical tablet Take tablet Take tablet 1 tablet 1 tablet Take 1 every day every day tablet by oral by oral every day route. route. by oral route. Kristalose Kristalose No Kristalose [facility] 20 gram 20 gram 20 gram Medica l oral packet oral packet oral MIX AND MIX AND packet MIX DRINK 1 DRINK 1 AND DRINK PACKET BY PACKET BY 1 PACKET MOUTH EVERY MOUTH EVERY BY MOUTH DAY DAY EVERY DAY lorazepam 1 lorazepam 1 No lorazepam [facility] mg tablet mg tablet 1 mg Medic al TAKE ONE TAKE ONE tablet (1) (1) TAKE ONE TABLET(S) TABLET(S) (1) BY MOUTH 1 BY MOUTH 1 TABLET(S) HOUR PRIOR HOUR PRIOR BY MOUTH 1 TO SURGERY TO SURGERY HOUR PRIOR WITH A WITH A TO SURGERY SMALL SIP SMALL SIP WITH A OF WATER. OF WATER. SMALL SIP OF WATER. metronidazo metronidazo No metronidaz [facility] le 500 mg le 500 mg ole 500 mg Medical tablet TAKE tablet TAKE tablet 1 TABLET BY 1 TABLET BY TAKE 1 MOUTH TWICE MOUTH TWICE TABLET BY DAILY FOR 7 DAILY FOR 7 MOUTH DAYS DAYS TWICE DAILY FOR 7 DAYS nitrofurant nitrofurant No nitrofuran [facility] oin oin toin Medical monohydrate monohydrate monohydrat /macrocryst /macrocryst e/macrocry als 100 mg als 100 mg stals 100 capsule capsule mg capsule Take 1 Take 1 Take 1 capsule capsule capsule every 12 every 12 every 12 hours by hours by hours by oral route. oral route. oral route. nystatin nystatin No nystatin [facility] via 100,000 100,000 100,000 Medica l unit/gram unit/gram unit/gram topical topical topical cream APPLY cream APPLY cream TO THE TO THE APPLY TO AFFECTED AFFECTED THE AREA(S) BY AREA(S) BY AFFECTED TOPICAL TOPICAL AREA(S) BY ROUTE 2 ROUTE 2 TOPICAL TIMES PER TIMES PER ROUTE 2 DAY DAY TIMES PER DAY nystatin nystatin No nystatin Nat via 100,000 100,000 100,000 Medica l unit/gram unit/gram unit/gram topical topical topical ointment ointment ointment JAVIER EXT AA JAVIER EXT AA JAVIER EXT AA BID BID BID Off Deep Off Deep No Off Deep Nat via Self 25 % Self 25 % Self 25 % Medical topical topical topical spray spray spray ondansetron ondansetron No ondansetro [facility] 4 mg 4 mg n 4 mg Medical disintegrat disintegrat disintegra ing tablet ing tablet ting Place [address] Place 1 tablet tablet [address] 1 times a day times a day tablet 3 by by times a translingua translingua day by l route for l route for translingu 15 days. 15 days. al route for 15 days. pantoprazol pantoprazol No pantoprazo [facility] e 20 mg e 20 mg le 20 mg Medic al tablet,nandini tablet,nandini tablet,del yed release yed release ayed Take 2 Take 2 release tablets tablets Take 2 every day every day tablets by oral by oral every day route for route for by oral 30 days. 30 days. route for 30 days. pantoprazol pantoprazol No pantoprazo [facility] e 40 mg e 40 mg le 40 mg Medic al tablet,nandini tablet,nandini tablet,del yed release yed release ayed Take 1 Take 1 release tablet tablet Take 1 every day every day tablet by oral by oral every day route at route at by oral bedtime for bedtime for route at 60 days. 60 days. bedtime for 60 days. ParaGard T ParaGard T No ParaGard T [facility] [id number] Med ical square mm square mm square mm intrauterin intrauterin intrauteri e device e device ne device Previfem Previfem No Previfem Nat via 0.25 mg-35 0.25 mg-35 0.25 mg-35 Medical mcg tablet mcg tablet mcg tablet Take 1 Take 1 Take 1 tablet tablet tablet every day every day every day by oral by oral by oral route for route for route for 28 days. 28 days. 28 days. scopolamine scopolamine No scopolamin [facility] 1 mg over 3 1 mg over 3 e 1 mg Medical days days over 3 transdermal transdermal days patch Apply patch Apply transderma 1 patch 1 patch l patch every 72 every 72 Apply 1 hours by hours by patch transdermal transdermal every 72 route as route as hours by directed. directed. transderma l route as directed. sertraline sertraline No sertraline [facility] 25 mg 25 mg 25 mg Medical tablet tablet tablet terconazole terconazole No 1applic Q1D terconazol [facility] 0.4 % 0.4 % ator(s) e 0.4 % Medical vaginal vaginal ful vaginal cream cream cream Insert 1 Insert 1 Insert 1 applicatorf applicatorf applicator ul every ul every ful every day by day by day by vaginal vaginal vaginal route for 7 route for 7 route for days. days. 7 days. triamcinolo triamcinolo No triamcinol [facility] ne ne one Medical acetonide acetonide acetonide 0.1 % 0.1 % 0.1 % topical topical topical cream APPLY cream APPLY cream THIN LAYER THIN LAYER APPLY THIN TOPICALLY TOPICALLY LAYER TO THE TO THE TOPICALLY AFFECTED AFFECTED TO THE AREA TWICE AREA TWICE AFFECTED DAILY DAILY AREA TWICE DAILY Vitafol Vitafol No Vitafol [facility] Ultra 29 mg Ultra 29 mg Ultra 29 Medical iron-1 iron-1 mg iron-1 mg-200 mg mg-200 mg mg-200 mg capsule capsule capsule TAKE 1 TAKE 1 TAKE 1 CAPSULE BY CAPSULE BY CAPSULE BY MOUTH DAILY MOUTH DAILY MOUTH DAILY Zofran 4 mg Zofran 4 mg No 1 TID Zofran 4 [facility] tablet Take tablet Take mg tablet Medical 1 tablet 3 1 tablet 3 Take 1 times a day times a day tablet 3 by oral by oral times a route for route for day by 15 days. 15 days. oral route for 15 days. azithromyci azithromyci No azithromyc [facility] n 500 mg n 500 mg in 500 mg Me dical tablet TK 2 tablet TK 2 tablet TK TS PO ONCE TS PO ONCE 2 TS PO FOR 1 DOSE FOR 1 DOSE ONCE FOR 1 DOSE Biotene Dry Biotene Dry No 30mL BID Biotene [facility] Mouth Oral Mouth Oral Dry Mouth Medical Rinse Rinse Oral Rinse mouthwash mouthwash mouthwash Take 30 mL Take 30 mL Take 30 mL twice a day twice a day twice a by mucous by mucous day by route for route for mucous 30 days. 30 days. route for 30 days. cholecalcif cholecalcif No cholecalci [facility] marcie marcie ferol Medical (vitamin (vitamin (vitamin D3) 1,250 D3) 1,250 D3) 1,250 mcg (50,000 mcg (50,000 mcg unit) unit) (50,000 capsule TK capsule TK unit) 1 C PO Q WK 1 C PO Q WK capsule TK FOR 12 WKS FOR 12 WKS 1 C PO Q WK FOR 12 WKS clindamycin clindamycin No clindamyci [facility] 2 % vaginal 2 % vaginal n 2 % Medical cream I 1 cream I 1 vaginal APL APL cream I 1 VAGINALLY VAGINALLY APL QD FOR 7 QD FOR 7 VAGINALLY DAYS DAYS QD FOR 7 DAYS clobetasol clobetasol No clobetasol [facility] 0.05 % 0.05 % 0.05 % Medical topical topical topical cream APPLY cream APPLY cream A THIN A THIN APPLY A LAYER TO LAYER TO THIN LAYER THE THE TO THE AFFECTED AFFECTED AFFECTED AREA(S) BY AREA(S) BY AREA(S) BY TOPICAL TOPICAL TOPICAL ROUTE 2 ROUTE 2 ROUTE 2 TIMES PER TIMES PER TIMES PER DAY DAY DAY doxycycline doxycycline No doxycyclin [facility] hyclate 100 hyclate 100 e hyclate Medical mg tablet mg tablet 100 mg TK 1 T PO TK 1 T PO tablet TK BID FOR 7 BID FOR 7 1 T PO BID DAYS DAYS FOR 7 DAYS doxycycline doxycycline No doxycyclin [facility] monohydrate monohydrate e M edical 100 mg 100 mg monohydrat tablet 1 tablet 1 e 100 mg p.o BID p.o BID tablet 1 p.o BID fluconazole fluconazole No 1 Q1D fluconazol [facility] 150 mg 150 mg e 150 mg Medical tablet Take tablet Take tablet 1 tablet 1 tablet Take 1 every day every day tablet by oral by oral every day route. route. by oral route. ibuprofen ibuprofen No ibuprofen [facility] 600 mg 600 mg 600 mg Medical tablet TAKE tablet TAKE tablet 1 TABLET BY 1 TABLET BY TAKE 1 MOUTH EVERY MOUTH EVERY TABLET BY 6 HOURS 6 HOURS MOUTH EVERY 6 HOURS Kristalose Kristalose No Kristalose [facility] 20 gram 20 gram 20 gram Medica l oral packet oral packet oral MIX AND MIX AND packet MIX DRINK 1 DRINK 1 AND DRINK PACKET BY PACKET BY 1 PACKET MOUTH EVERY MOUTH EVERY BY MOUTH DAY DAY EVERY DAY lorazepam 1 lorazepam 1 No lorazepam [facility] mg tablet mg tablet 1 mg Medic al TAKE ONE TAKE ONE tablet (1) (1) TAKE ONE TABLET(S) TABLET(S) (1) BY MOUTH 1 BY MOUTH 1 TABLET(S) HOUR PRIOR HOUR PRIOR BY MOUTH 1 TO SURGERY TO SURGERY HOUR PRIOR WITH A WITH A TO SURGERY SMALL SIP SMALL SIP WITH A OF WATER. OF WATER. SMALL SIP OF WATER. metronidazo metronidazo No metronidaz [facility] le 500 mg le 500 mg ole 500 mg Medical tablet TAKE tablet TAKE tablet 1 TABLET BY 1 TABLET BY TAKE 1 MOUTH TWICE MOUTH TWICE TABLET BY DAILY FOR 7 DAILY FOR 7 MOUTH DAYS DAYS TWICE DAILY FOR 7 DAYS nitrofurant nitrofurant No nitrofuran [facility] oin oin toin Medical monohydrate monohydrate monohydrat /macrocryst /macrocryst e/macrocry als 100 mg als 100 mg stals 100 capsule capsule mg capsule Take 1 Take 1 Take 1 capsule capsule capsule every 12 every 12 every 12 hours by hours by hours by oral route. oral route. oral route. nystatin nystatin No nystatin [facility] via 100,000 100,000 100,000 Medica l unit/gram unit/gram unit/gram topical topical topical cream APPLY cream APPLY cream TO THE TO THE APPLY TO AFFECTED AFFECTED THE AREA(S) BY AREA(S) BY AFFECTED TOPICAL TOPICAL AREA(S) BY ROUTE 2 ROUTE 2 TOPICAL TIMES PER TIMES PER ROUTE 2 DAY DAY TIMES PER DAY nystatin nystatin No nystatin [facility] via 100,000 100,000 100,000 Medica l unit/gram unit/gram unit/gram topical topical topical ointment ointment ointment JAVIER EXT AA JAVIER EXT AA JAVIER EXT AA BID BID BID Off Deep Off Deep No Off Deep Nat via Self 25 % Self 25 % Self 25 % Medical topical topical topical spray spray spray ondansetron ondansetron No ondansetro [facility] 4 mg 4 mg n 4 mg Medical disintegrat disintegrat disintegra ing tablet ing tablet ting Place 1 Place 1 tablet tablet [address] 1 times a day times a day tablet 3 by by times a translingua translingua day by l route for l route for translingu 15 days. 15 days. al route for 15 days. pantoprazol pantoprazol No pantoprazo [facility] e 20 mg e 20 mg le 20 mg Medic al tablet,nandini tablet,nandini tablet,del yed release yed release ayed Take 2 Take 2 release tablets tablets Take 2 every day every day tablets by oral by oral every day route for route for by oral 30 days. 30 days. route for 30 days. pantoprazol pantoprazol No pantoprazo [facility] e 40 mg e 40 mg le 40 mg Medic al tablet,nandini tablet,nandini tablet,del yed release yed release ayed Take 1 Take 1 release tablet tablet Take 1 every day every day tablet by oral by oral every day route at route at by oral bedtime for bedtime for route at 60 days. 60 days. bedtime for 60 days. ParaGard T ParaGard T No ParaGard T [facility] [id number] 380 Med ical square mm square mm square mm intrauterin intrauterin intrauteri e device e device ne device Previfem Previfem No Previfem Nat via 0.25 mg-35 0.25 mg-35 0.25 mg-35 Medical mcg tablet mcg tablet mcg tablet Take 1 Take 1 Take 1 tablet tablet tablet every day every day every day by oral by oral by oral route for route for route for 28 days. 28 days. 28 days. scopolamine scopolamine No scopolamin [facility] 1 mg over 3 1 mg over 3 e 1 mg Medical days days over 3 transdermal transdermal days patch Apply patch Apply transderma 1 patch 1 patch l patch every 72 every 72 Apply 1 hours by hours by patch transdermal transdermal every 72 route as route as hours by directed. directed. transderma l route as directed. sertraline sertraline No sertraline [facility] 25 mg 25 mg 25 mg Medical tablet tablet tablet terconazole terconazole No 1applic Q1D terconazol [facility] 0.4 % 0.4 % ator(s) e 0.4 % Medical vaginal vaginal ful vaginal cream cream cream Insert 1 Insert 1 Insert 1 applicatorf applicatorf applicator ul every ul every ful every day by day by day by vaginal vaginal vaginal route for 7 route for 7 route for days. days. 7 days. triamcinolo triamcinolo No triamcinol [facility] ne ne one Medical acetonide acetonide acetonide 0.1 % 0.1 % 0.1 % topical topical topical cream APPLY cream APPLY cream THIN LAYER THIN LAYER APPLY THIN TOPICALLY TOPICALLY LAYER TO THE TO THE TOPICALLY AFFECTED AFFECTED TO THE AREA TWICE AREA TWICE AFFECTED DAILY DAILY AREA TWICE DAILY Vitafol Vitafol No Vitafol [facility] Ultra 29 mg Ultra 29 mg Ultra 29 Medical iron-1 iron-1 mg iron-1 mg-200 mg mg-200 mg mg-200 mg capsule capsule capsule TAKE 1 TAKE 1 TAKE 1 CAPSULE BY CAPSULE BY CAPSULE BY MOUTH DAILY MOUTH DAILY MOUTH DAILY Zofran 4 mg Zofran 4 mg No 1 TID Zofran 4 [facility] tablet Take tablet Take mg tablet Medical 1 tablet 3 1 tablet 3 Take 1 times a day times a day tablet 3 by oral by oral times a route for route for day by 15 days. 15 days. oral route for 15 days. azithromyci azithromyci No azithromyc [facility] n 500 mg n 500 mg in 500 mg Me dical tablet TK 2 tablet TK 2 tablet TK TS PO ONCE TS PO ONCE 2 TS PO FOR 1 DOSE FOR 1 DOSE ONCE FOR 1 DOSE Biotene Dry Biotene Dry No 30mL BID Biotene [facility] Mouth Oral Mouth Oral Dry Mouth Medical Rinse Rinse Oral Rinse mouthwash mouthwash mouthwash Take 30 mL Take 30 mL Take 30 mL twice a day twice a day twice a by mucous by mucous day by route for route for mucous 30 days. 30 days. route for 30 days. cholecalcif cholecalcif No cholecalci [facility] marcie marcie ferol Medical (vitamin (vitamin (vitamin D3) 1,250 D3) 1,250 D3) 1,250 mcg (50,000 mcg (50,000 mcg unit) unit) (50,000 capsule TK capsule TK unit) 1 C PO Q WK 1 C PO Q WK capsule TK FOR 12 WKS FOR 12 WKS 1 C PO Q WK FOR 12 WKS clindamycin clindamycin No clindamyci [facility] 2 % vaginal 2 % vaginal n 2 % Medical cream I 1 cream I 1 vaginal APL APL cream I 1 VAGINALLY VAGINALLY APL QD FOR 7 QD FOR 7 VAGINALLY DAYS DAYS QD FOR 7 DAYS clobetasol clobetasol No clobetasol [facility] 0.05 % 0.05 % 0.05 % Medical topical topical topical cream APPLY cream APPLY cream A THIN A THIN APPLY A LAYER TO LAYER TO THIN LAYER THE THE TO THE AFFECTED AFFECTED AFFECTED AREA(S) BY AREA(S) BY AREA(S) BY TOPICAL TOPICAL TOPICAL ROUTE 2 ROUTE 2 ROUTE 2 TIMES PER TIMES PER TIMES PER DAY DAY DAY doxycycline doxycycline No doxycyclin [facility] hyclate 100 hyclate 100 e hyclate Medical mg tablet mg tablet 100 mg TK 1 T PO TK 1 T PO tablet TK BID FOR 7 BID FOR 7 1 T PO BID DAYS DAYS FOR 7 DAYS doxycycline doxycycline No doxycyclin [facility] monohydrate monohydrate e M edical 100 mg 100 mg monohydrat tablet 1 tablet 1 e 100 mg p.o BID p.o BID tablet 1 p.o BID fluconazole fluconazole No 1 Q1D fluconazol [facility] 150 mg 150 mg e 150 mg Medical tablet Take tablet Take tablet 1 tablet 1 tablet Take 1 every day every day tablet by oral by oral every day route. route. by oral route. ibuprofen ibuprofen No ibuprofen [facility] 600 mg 600 mg 600 mg Medical tablet TAKE tablet TAKE tablet 1 TABLET BY 1 TABLET BY TAKE 1 MOUTH EVERY MOUTH EVERY TABLET BY 6 HOURS 6 HOURS MOUTH EVERY 6 HOURS Kristalose Kristalose No Kristalose [facility] 20 gram 20 gram 20 gram Medica l oral packet oral packet oral MIX AND MIX AND packet MIX DRINK 1 DRINK 1 AND DRINK PACKET BY PACKET BY 1 PACKET MOUTH EVERY MOUTH EVERY BY MOUTH DAY DAY EVERY DAY lorazepam 1 lorazepam 1 No lorazepam [facility] mg tablet mg tablet 1 mg Medic al TAKE ONE TAKE ONE tablet (1) (1) TAKE ONE TABLET(S) TABLET(S) (1) BY MOUTH 1 BY MOUTH 1 TABLET(S) HOUR PRIOR HOUR PRIOR BY MOUTH 1 TO SURGERY TO SURGERY HOUR PRIOR WITH A WITH A TO SURGERY SMALL SIP SMALL SIP WITH A OF WATER. OF WATER. SMALL SIP OF WATER. metronidazo metronidazo No metronidaz [facility] le 500 mg le 500 mg ole 500 mg Medical tablet TAKE tablet TAKE tablet 1 TABLET BY 1 TABLET BY TAKE 1 MOUTH TWICE MOUTH TWICE TABLET BY DAILY FOR 7 DAILY FOR 7 MOUTH DAYS DAYS TWICE DAILY FOR 7 DAYS nitrofurant nitrofurant No nitrofuran [facility] oin oin toin Medical monohydrate monohydrate monohydrat /macrocryst /macrocryst e/macrocry als 100 mg als 100 mg stals 100 capsule capsule mg capsule Take 1 Take 1 Take 1 capsule capsule capsule every 12 every 12 every 12 hours by hours by hours by oral route. oral route. oral route. nystatin nystatin No nystatin [facility] via 100,000 100,000 100,000 Medica l unit/gram unit/gram unit/gram topical topical topical cream APPLY cream APPLY cream TO THE TO THE APPLY TO AFFECTED AFFECTED THE AREA(S) BY AREA(S) BY AFFECTED TOPICAL TOPICAL AREA(S) BY ROUTE 2 ROUTE 2 TOPICAL TIMES PER TIMES PER ROUTE 2 DAY DAY TIMES PER DAY nystatin nystatin No nystatin [facility] via 100,000 100,000 100,000 Medica l unit/gram unit/gram unit/gram topical topical topical ointment ointment ointment JAVIER EXT AA JAVIER EXT AA JAVIER EXT AA BID BID BID Off Deep Off Deep No Off Deep Nat via Self 25 % Self 25 % Self 25 % Medical topical topical topical spray spray spray ondansetron ondansetron No ondansetro [facility] 4 mg 4 mg n 4 mg Medical disintegrat disintegrat disintegra ing tablet ing tablet ting Place 1 Place 1 tablet tablet [address] 1 times a day times a day tablet 3 by by times a translingua translingua day by l route for l route for translingu 15 days. 15 days. al route for 15 days. pantoprazol pantoprazol No pantoprazo [facility] e 20 mg e 20 mg le 20 mg Medic al tablet,nandini tablet,nandini tablet,del yed release yed release ayed Take 2 Take 2 release tablets tablets Take 2 every day every day tablets by oral by oral every day route for route for by oral 30 days. 30 days. route for 30 days. pantoprazol pantoprazol No pantoprazo [facility] e 40 mg e 40 mg le 40 mg Medic al tablet,nandini tablet,nandini tablet,del yed release yed release ayed Take 1 Take 1 release tablet tablet Take 1 every day every day tablet by oral by oral every day route at route at by oral bedtime for bedtime for route at 60 days. 60 days. bedtime for 60 days. ParaGard T ParaGard T No ParaGard T [facility] [id number] 380 Med ical square mm square mm square mm intrauterin intrauterin intrauteri e device e device ne device Previfem Previfem No Previfem Nat via 0.25 mg-35 0.25 mg-35 0.25 mg-35 Medical mcg tablet mcg tablet mcg tablet Take 1 Take 1 Take 1 tablet tablet tablet every day every day every day by oral by oral by oral route for route for route for 28 days. 28 days. 28 days. scopolamine scopolamine No scopolamin [facility] 1 mg over 3 1 mg over 3 e 1 mg Medical days days over 3 transdermal transdermal days patch Apply patch Apply transderma 1 patch 1 patch l patch every 72 every 72 Apply 1 hours by hours by patch transdermal transdermal every 72 route as route as hours by directed. directed. transderma l route as directed. sertraline sertraline No sertraline [facility] 25 mg 25 mg 25 mg Medical tablet tablet tablet terconazole terconazole No 1applic Q1D terconazol [facility] 0.4 % 0.4 % ator(s) e 0.4 % Medical vaginal vaginal ful vaginal cream cream cream Insert 1 Insert 1 Insert 1 applicatorf applicatorf applicator ul every ul every ful every day by day by day by vaginal vaginal vaginal route for 7 route for 7 route for days. days. 7 days. triamcinolo triamcinolo No triamcinol [facility] ne ne one Medical acetonide acetonide acetonide 0.1 % 0.1 % 0.1 % topical topical topical cream APPLY cream APPLY cream THIN LAYER THIN LAYER APPLY THIN TOPICALLY TOPICALLY LAYER TO THE TO THE TOPICALLY AFFECTED AFFECTED TO THE AREA TWICE AREA TWICE AFFECTED DAILY DAILY AREA TWICE DAILY Vitafol Vitafol No Vitafol [facility] Ultra 29 mg Ultra 29 mg Ultra 29 Medical iron-1 iron-1 mg iron-1 mg-200 mg mg-200 mg mg-200 mg capsule capsule capsule TAKE 1 TAKE 1 TAKE 1 CAPSULE BY CAPSULE BY CAPSULE BY MOUTH DAILY MOUTH DAILY MOUTH DAILY Zofran 4 mg Zofran 4 mg No 1 TID Zofran 4 [facility] tablet Take tablet Take mg tablet Medical 1 tablet 3 1 tablet 3 Take 1 times a day times a day tablet 3 by oral by oral times a route for route for day by 15 days. 15 days. oral route for 15 days. azithromyci azithromyci No azithromyc [facility] n 500 mg n 500 mg in 500 mg Me dical tablet TK 2 tablet TK 2 tablet TK TS PO ONCE TS PO ONCE 2 TS PO FOR 1 DOSE FOR 1 DOSE ONCE FOR 1 DOSE Biotene Dry Biotene Dry No 30mL BID Biotene [facility] Mouth Oral Mouth Oral Dry Mouth Medical Rinse Rinse Oral Rinse mouthwash mouthwash mouthwash Take 30 mL Take 30 mL Take 30 mL twice a day twice a day twice a by mucous by mucous day by route for route for mucous 30 days. 30 days. route for 30 days. cholecalcif cholecalcif No cholecalci [facility] marcie marcie ferol Medical (vitamin (vitamin (vitamin D3) 1,250 D3) 1,250 D3) 1,250 mcg (50,000 mcg (50,000 mcg unit) unit) (50,000 capsule TK capsule TK unit) 1 C PO Q WK 1 C PO Q WK capsule TK FOR 12 WKS FOR 12 WKS 1 C PO Q WK FOR 12 WKS clindamycin clindamycin No clindamyci [facility] 2 % vaginal 2 % vaginal n 2 % Medical cream I 1 cream I 1 vaginal APL APL cream I 1 VAGINALLY VAGINALLY APL QD FOR 7 QD FOR 7 VAGINALLY DAYS DAYS QD FOR 7 DAYS doxycycline doxycycline No doxycyclin [facility] hyclate 100 hyclate 100 e hyclate Medical mg tablet mg tablet 100 mg TK 1 T PO TK 1 T PO tablet TK BID FOR 7 BID FOR 7 1 T PO BID DAYS DAYS FOR 7 DAYS doxycycline doxycycline No doxycyclin [facility] monohydrate monohydrate e M edical 100 mg 100 mg monohydrat tablet 1 tablet 1 e 100 mg p.o BID p.o BID tablet 1 p.o BID fluconazole fluconazole No 1 Q1D fluconazol [facility] 150 mg 150 mg e 150 mg Medical tablet Take tablet Take tablet 1 tablet 1 tablet Take 1 every day every day tablet by oral by oral every day route. route. by oral route. Kristalose Kristalose No Kristalose [facility] 20 gram 20 gram 20 gram Medica l oral packet oral packet oral MIX AND MIX AND packet MIX DRINK 1 DRINK 1 AND DRINK PACKET BY PACKET BY 1 PACKET MOUTH EVERY MOUTH EVERY BY MOUTH DAY DAY EVERY DAY lorazepam 1 lorazepam 1 No lorazepam [facility] mg tablet mg tablet 1 mg Medic al TAKE ONE TAKE ONE tablet (1) (1) TAKE ONE TABLET(S) TABLET(S) (1) BY MOUTH 1 BY MOUTH 1 TABLET(S) HOUR PRIOR HOUR PRIOR BY MOUTH 1 TO SURGERY TO SURGERY HOUR PRIOR WITH A WITH A TO SURGERY SMALL SIP SMALL SIP WITH A OF WATER. OF WATER. SMALL SIP OF WATER. metronidazo metronidazo No metronidaz [facility] le 500 mg le 500 mg ole 500 mg Medical tablet TAKE tablet TAKE tablet 1 TABLET BY 1 TABLET BY TAKE 1 MOUTH TWICE MOUTH TWICE TABLET BY DAILY FOR 7 DAILY FOR 7 MOUTH DAYS DAYS TWICE DAILY FOR 7 DAYS nystatin nystatin No nystatin Nat via 100,000 100,000 100,000 Medica l unit/gram unit/gram unit/gram topical topical topical cream APPLY cream APPLY cream TO THE TO THE APPLY TO AFFECTED AFFECTED THE AREA(S) BY AREA(S) BY AFFECTED TOPICAL TOPICAL AREA(S) BY ROUTE 2 ROUTE 2 TOPICAL TIMES PER TIMES PER ROUTE 2 DAY DAY TIMES PER DAY nystatin nystatin No nystatin Nat via 100,000 100,000 100,000 Medica l unit/gram unit/gram unit/gram topical topical topical ointment ointment ointment JAVIER EXT AA JAVIER EXT AA JAVIER EXT AA BID BID BID Off Deep Off Deep No Off Deep Nat via Self 25 % Self 25 % Self 25 % Medical topical topical topical spray spray spray ondansetron ondansetron No ondansetro [facility] 4 mg 4 mg n 4 mg Medical disintegrat disintegrat disintegra ing tablet ing tablet ting Place [address] Place 1 tablet tablet [address] 1 times a day times a day tablet 3 by by times a translingua translingua day by l route for l route for translingu 15 days. 15 days. al route for 15 days. pantoprazol pantoprazol No pantoprazo [facility] e 20 mg e 20 mg le 20 mg Medic al tablet,nandini tablet,nandini tablet,del yed release yed release ayed Take 2 Take 2 release tablets tablets Take 2 every day every day tablets by oral by oral every day route for route for by oral 30 days. 30 days. route for 30 days. pantoprazol pantoprazol No pantoprazo [facility] e 40 mg e 40 mg le 40 mg Medic al tablet,nandini tablet,nadnini tablet,del yed release yed release ayed Take 1 Take 1 release tablet tablet Take 1 every day every day tablet by oral by oral every day route at route at by oral bedtime for bedtime for route at 60 days. 60 days. bedtime for 60 days. Previfem Previfem No Previfem Nat via 0.25 mg-35 0.25 mg-35 0.25 mg-35 Medical mcg tablet mcg tablet mcg tablet Take 1 Take 1 Take 1 tablet tablet tablet every day every day every day by oral by oral by oral route for route for route for 28 days. 28 days. 28 days. scopolamine scopolamine No scopolamin [facility] 1 mg over 3 1 mg over 3 e 1 mg Medical days days over 3 transdermal transdermal days patch Apply patch Apply transderma 1 patch 1 patch l patch every 72 every 72 Apply 1 hours by hours by patch transdermal transdermal every 72 route as route as hours by directed. directed. transderma l route as directed. sertraline sertraline No sertraline [facility] 25 mg 25 mg 25 mg Medical tablet tablet tablet terconazole terconazole No 1applic Q1D terconazol [facility] 0.4 % 0.4 % ator(s) e 0.4 % Medical vaginal vaginal ful vaginal cream cream cream Insert 1 Insert 1 Insert 1 applicatorf applicatorf applicator ul every ul every ful every day by day by day by vaginal vaginal vaginal route for 7 route for 7 route for days. days. 7 days. triamcinolo triamcinolo No triamcinol [facility] ne ne one Medical acetonide acetonide acetonide 0.1 % 0.1 % 0.1 % topical topical topical cream APPLY cream APPLY cream THIN LAYER THIN LAYER APPLY THIN TOPICALLY TOPICALLY LAYER TO THE TO THE TOPICALLY AFFECTED AFFECTED TO THE AREA TWICE AREA TWICE AFFECTED DAILY DAILY AREA TWICE DAILY Vitafol Vitafol No Vitafol [facility] Ultra 29 mg Ultra 29 mg Ultra 29 Medical iron-1 iron-1 mg iron-1 mg-200 mg mg-200 mg mg-200 mg capsule capsule capsule TAKE 1 TAKE 1 TAKE 1 CAPSULE BY CAPSULE BY CAPSULE BY MOUTH DAILY MOUTH DAILY MOUTH DAILY Zofran 4 mg Zofran 4 mg No 1 TID Zofran 4 [facility] tablet Take tablet Take mg tablet Medical 1 tablet 3 1 tablet 3 Take 1 times a day times a day tablet 3 by oral by oral times a route for route for day by 15 days. 15 days. oral route for 15 days. Immunizations Ordered Immunization Filled Immunization Date Status Commen ts Source Name Name diphtheria/pertussis 2021-06-13 Completed [facility] , acel/tetanus adult 08:29:00 [facility] Influenza Quad-PF 2020-12-03 Completed [facility] 00:00:00 of Medicine Influenza Quad-PF 2020-12-03 Completed [facility] 00:00:00 of Medicine Influenza Quad-PF 2020-12-03 Completed [facility] 00:00:00 of Medicine HPV 9-valent 2019-11-03 Completed [facility] 00:00:00 of Medicine Tdap 2019-11-03 Completed [facility] 00:00:00 of Medicine HPV 9-valent 2019-11-03 Completed [facility] ge 00:00:00 of Medicine Tdap 2019-11-03 Completed [facility] 00:00:00 of Medicine HPV 9-valent 2019-11-03 Completed [facility] 00:00:00 of Medicine Tdap 2019-11-03 Completed [facility] 00:00:00 of Medicine influenza virus 2017-11-10 [facility] 21:30:00 [facility] inactivated<sup>1</s up> influenza virus 2017-11-10 [facility]pleted [facility], 21:30:00 [place] inactivated<sup>1</s up> influenza virus 2017-11-10 [facility]pleted [facility], 21:30:00 [place] inactivated<sup>1</s up> Influenza 2017-11-10 Completed [facility] (Preservative Free) 00:00:00 of Me dicine Influenza 2017-11-10 Completed [facility] (Preservative Free) 00:00:00 of Me dicine Influenza 2017-11-10 Completed [facility] (Preservative Free) 00:00:00 of Me dicine Vital Signs Vital Name Observation Time Observation Value Comments Source BP Diastolic 2021-06-26 00:00:00 63 mm[Hg] [facility] Height 2021-06-26 00:00:00 64 [in_i] [facility] BMI (Body Mass Index) 2021-06-26 00:00:00 24.3 kg/m2 [facility] BP Systolic 2021-06-26 00:00:00 103 mm[Hg] [facility] Body Weight 2021-06-26 00:00:00 141.3 [lb_av] [facility] BP Diastolic 2021-06-10 00:00:00 81 mm[Hg] [facility] Height 2021-06-10 00:00:00 64 [in_i] [facility] BMI (Body Mass Index) 2021-06-10 00:00:00 28.6 kg/m2 [facility] BP Systolic 2021-06-10 00:00:00 118 mm[Hg] [facility] Body Weight 2021-06-10 00:00:00 166.8 [lb_av] [facility] BP Diastolic 2021-06-04 00:00:00 75 mm[Hg] [facility] Height 2021-06-04 00:00:00 64 [in_i] [facility] BMI (Body Mass Index) 2021-06-04 00:00:00 27.9 kg/m2 [facility] BP Systolic 2021-06-04 00:00:00 117 mm[Hg] [facility] Body Weight 2021-06-04 00:00:00 162.6 [lb_av] [facility] BP Diastolic 2021-05-23 00:00:00 80 mm[Hg] [facility] Height 2021-05-23 00:00:00 64 [in_i] [facility] BMI (Body Mass Index) 2021-05-23 00:00:00 27.5 kg/m2 [facility] BP Systolic 2021-05-23 00:00:00 118 mm[Hg] [facility] Body Weight 2021-05-23 00:00:00 160 [lb_av] [facility] BP Diastolic 2021-04-23 00:00:00 68 mm[Hg] [facility] Height 2021-04-23 00:00:00 64 [in_i] [facility] BMI (Body Mass Index) 2021-04-23 00:00:00 27.3 kg/m2 [facility] BP Systolic 2021-04-23 00:00:00 116 mm[Hg] [facility] Body Weight 2021-04-23 00:00:00 159.1 [lb_av] [facility] BP Diastolic 2021-04-02 00:00:00 61 mm[Hg] [facility] Height 2021-04-02 00:00:00 64 [in_i] [facility] BMI (Body Mass Index) 2021-04-02 00:00:00 27.1 kg/m2 [facility] BP Systolic 2021-04-02 00:00:00 95 mm[Hg] [facility] Body Weight 2021-04-02 00:00:00 158 [lb_av] [facility] BMI (Body Mass Index) 2021-03-21 00:00:00 27.1 kg/m2 [facility] BP Systolic 2021-03-21 00:00:00 100 mm[Hg] [facility] Body Weight 2021-03-21 00:00:00 157.9 [lb_av] [facility] BP Diastolic 2021-03-21 00:00:00 67 mm[Hg] [facility] Height 2021-03-21 00:00:00 64 [in_i] [facility] Systolic blood 2020-12-03 13:19:00 104 mm[Hg] [facility] Medicine Diastolic blood 2020-12-03 13:19:00 68 mm[Hg] [facility] Medicine Heart rate 2020-12-03 13:19:00 84 [facility] 2020-12-03 13:19:00 36.61 [facility] Body height 2020-12-03 13:19:00 162.6 cm [facility] Body weight 2020-12-03 13:19:00 [facility] 2020-12-03 13:19:00 23.82 kg/m2 [facility] Temperature Oral (F) 2021-06-14 13:00:00 98.8 F [facility] Heart Rate 2021-06-14 13:00:00 [facility] Systolic (mm Hg) 2021-06-14 13:00:00 [facility] Diastolic (mm Hg) 2021-06-14 13:00:00 [facility] Heart Rate 2021-06-14 09:03:20 [facility] Temperature Oral (F) 2021-06-14 09:02:43 98 F [facility] Systolic (mm Hg) 2021-06-14 09:02:43 [facility] Diastolic (mm Hg) 2021-06-14 09:02:43 [facility] Heart Rate 2021-06-14 09:02:43 [facility] Temperature Oral (F) 2021-06-14 05:40:04 98 F [facility] Systolic (mm Hg) 2021-06-14 05:39:49 [facility] Diastolic (mm Hg) 2021-06-14 05:39:49 [facility] Respitory Rate 2021-06-13 03:03:24 [facility] Respitory Rate 2021-06-12 15:44:00 [facility] Height 2021-06-12 03:33:00 165.1 cm [facility] BMI Calculated 2021-06-12 03:33:00 [facility] Weight 2021-06-12 03:33:00 [facility] Respitory Rate 2021-06-12 03:33:00 [facility] Height 2021-06-12 03:30:00 165.1 cm [facility] Weight 2021-06-12 03:30:00 [facility] BMI Calculated 2021-06-12 03:30:00 [facility] Systolic (mm Hg) 2021-05-21 02:55:00 [facility] Diastolic (mm Hg) 2021-05-21 02:55:00 [facility] Respitory Rate 2021-05-21 02:55:00 [facility] Systolic (mm Hg) 2021-05-21 02:39:00 [facility] Diastolic (mm Hg) 2021-05-21 02:39:00 [facility] Systolic (mm Hg) 2021-05-21 02:26:00 [facility] Diastolic (mm Hg) 2021-05-21 02:26:00 [facility] Respitory Rate 2021-05-21 01:31:00 [facility] Height 2021-05-21 00:41:00 162.56 cm [facility] BMI Calculated 2021-05-21 00:41:00 [facility] Weight 2021-05-21 00:41:00 [facility] Heart Rate 2021-05-21 00:41:00 [facility] Respitory Rate 2021-05-21 00:41:00 [facility] Temperature Oral (F) 2021-05-21 00:41:00 99.1 F [facility] Height 2021-05-21 00:36:00 162.56 cm [facility] Weight 2021-05-21 00:36:00 [facility] BMI Calculated 2021-05-21 00:36:00 [facility] Height 2021-05-16 08:10:00 162.56 cm [facility] Weight 2021-05-16 08:10:00 [facility] BMI Calculated 2021-05-16 08:10:00 [facility] Systolic (mm Hg) 2021-05-16 08:08:00 [facility] Diastolic (mm Hg) 2021-05-16 08:08:00 [facility] Heart Rate 2021-05-16 08:08:00 [facility] Respitory Rate 2021-05-16 08:08:00 [facility] Temperature Oral (F) 2021-05-16 08:08:00 98.3 F [facility] Height 2021-01-26 03:22:00 162.56 cm [facility] BMI Calculated 2021-01-26 03:22:00 [facility] Weight 2021-01-26 03:22:00 [facility] Systolic (mm Hg) 2021-01-26 03:22:00 [facility] Diastolic (mm Hg) 2021-01-26 03:22:00 [facility] Heart Rate 2021-01-26 03:22:00 [facility] Respitory Rate 2021-01-26 03:22:00 [facility] BP Diastolic 2020-07-01 22:17:00 74 mm[Hg] [facility] BP Systolic 2020-07-01 22:17:00 109 mm[Hg] [facility] Oxygen saturation by 2020-07-01 22:17:00 99 /min [facility] Pulse oximetry Patient [facility] Heart Rate 2020-07-01 22:17:00 80 /min [facility] Respiratory rate 2020-07-01 22:17:00 20 /min [facility] Body Temperature 2020-07-01 22:17:00 98.0 [degF] [facility] Oxygen saturation by 2020-07-01 22:14:00 99 /[facility] Oxygen saturation by 2020-07-01 17:18:00 100 /min [facility] Pulse oximetry Patient [facility] BMI Calculated 2017-11-10 20:41:00 [facility] Weight 2017-11-10 20:41:00 [facility] Height 2017-11-10 20:41:00 162.56 cm [facility] Temperature Oral (F) 2017-11-10 20:41:00 98.7 F [facility] Respitory Rate 2017-11-10 20:41:00 [facility] Heart Rate 2017-11-10 20:41:00 [facility] Systolic (mm Hg) 2017-11-10 20:41:00 [facility] Diastolic (mm Hg) 2017-11-10 20:41:00 [facility] Height 2017-09-18 18:31:00 162.56 cm [facility] Weight 2017-09-18 18:31:00 [facility] BMI Calculated 2017-09-18 18:31:00 [facility] Systolic (mm Hg) 2017-09-18 18:31:00 [facility] Diastolic (mm Hg) 2017-09-18 18:31:00 [facility] Temperature Oral (F) 2017-09-18 18:31:00 99.2 F [facility] Heart Rate 2017-09-18 18:31:00 [facility] Respitory Rate 2017-09-18 18:31:00 [facility] Weight 2017-09-04 20:16:00 [facility] BMI Calculated 2017-09-04 20:16:00 Sandeep Jesus Height 2017-09-04 20:16:00 162.56 cm Johnny Fox Systolic (mm Hg) 2017-09-04 20:16:00 [place] Diastolic (mm Hg) 2017-09-04 20:16:00 [facility] Respitory Rate 2017-09-04 20:16:00 Sandeep Jesus Heart Rate 2017-09-04 20:16:00 Johnny Fox Temperature Oral (F) 2017-09-04 20:16:00 98.3 F [facility] Procedures Procedure Date / Time Performed Performing Clinician Sourc e US Gallbladder 2020-07-01 00:00:00 [facility] Influenza vaccination 2017-11-10 05:00:00 Sandeep Jesus Papanicolaou smear 2017-03-20 06:00:00 Johnny Vermaann taken<sup>1</sup> Papanicolaou smear taken 2017-03-19 06:00:00 [facility] orial [facility] Plan of Care Planned Activity Planned Date Details Comments Source Diagnostic Test 2021-06-26 Indirect antiglobulin [facility] Pending 00:00:00 test.IgG specific reagent [Presence] in Serum or Plasma [code = 1005-8] Diagnostic Test 2021-06-26 unlisted lab [code = [facility] Pending 00:00:00 unlisted lab] Future Scheduled Test 2021-05-14 COVID-19 Vaccine (1) [facility] 15:51:14 [code = COVID-19 Vaccine of Medicine (1)] Future Scheduled Test 2021-05-14 Hepatitis C screening [facility] 15:51:14 (procedure) [code = of Medic ine 719526839] Future Scheduled Test 2021-05-14 Human immunodeficiency [facility] 15:51:14 virus screening of Medicine (procedure) [code = 479117021] Future Scheduled Test 2021-05-14 HPV VACCINE (2 - 3-dose [facility] 15:51:14 series) [code = HPV of Medic ine VACCINE (2 - 3-dose series)] Future Scheduled Test 2021-05-14 Screening for malignant [facility] 15:51:14 neoplasm of cervix of Medici ne (procedure) [code = 714823300] Future Scheduled Test 2021-05-14 TETANUS SHOT (ADULT) [facility] 15:51:14 [code = TETANUS SHOT of Medi cine (ADULT)] Future Scheduled Test 2020-12-03 Screening for malignant [facility] 08:40:53 neoplasm of cervix of Medici ne (procedure) [code = 704016432] Future Scheduled Test 2020-12-03 TETANUS SHOT (ADULT) [facility] 08:40:53 [code = TETANUS SHOT of Medi cine (ADULT)] Future Scheduled Test 2020-12-03 COVID-19 Vaccine (1) [facility] 08:40:53 [code = COVID-19 Vaccine of Medicine (1)] Future Scheduled Test 2020-12-03 Hepatitis C screening [facility] 08:40:53 (procedure) [code = of Medic ine 953671639] Future Scheduled Test 2020-12-03 Human immunodeficiency [facility] 08:40:53 virus screening of Medicine (procedure) [code = 738730055] Future Scheduled Test 2020-12-03 HPV VACCINE (2 - 3-dose [facility] 08:40:53 series) [code = HPV of Medic ine VACCINE (2 - 3-dose series)] Future Scheduled Test 2020-12-03 Screening for malignant [facility] 08:40:53 neoplasm of cervix of Medici ne (procedure) [code = 064533090] Future Scheduled Test 2020-12-03 TETANUS SHOT (ADULT) [facility] 08:40:53 [code = TETANUS SHOT of Medi cine (ADULT)] Future Scheduled Test 2020-12-03 COVID-19 Vaccine (1) [facility] 08:40:53 [code = COVID-19 Vaccine of Medicine (1)] Future Scheduled Test 2020-12-03 Hepatitis C screening [facility] 08:40:53 (procedure) [code = of Medic ine 224710544] Future Scheduled Test 2020-12-03 Human immunodeficiency [facility] 08:40:53 virus screening of Medicine (procedure) [code = 216939423] Future Scheduled Test 2020-12-03 HPV VACCINE (2 - 3-dose [facility] 08:40:53 series) [code = HPV of Medic ine VACCINE (2 - 3-dose series)] Instructions Abdominal Pain - Adult [facility] Instructions Marijuana Abuse [facility] Encounters Start End Encounter Admission Attending Care Care Encounter Source Date/Time Date/Time Type Type Clinicians Facility Department ID 2022-04-04 Outpatient [facility] [id number] [place] 16:22:50 [id number] [facility] 2021-12-16 Outpatient [facility] [id number] [place] 13:08:26 [id number] [facility] 2021-04-23 Inpatient SILVINO CAMPBELLTW MHTW [id number] MHT W 10:09:43 TERESA 2020-12-21 Outpatient [facility] [id number] [facility] 09:03:07 [id number] [facility] 2020-07-01 Inpatient [facility] [id number] [facility] 17:07:00 -[id number] [facility] 2020-06-19 Inpatient [facility] [id number] [facility] 11:50:00 [id number] [facility] 2022-04-01 2022-04-02 Emergency E ADDIS [facility] [id number] [facility] 17:45:00 02:23:00 JUNO 2022-03-28 2022-03-28 Outpatient NATALEE SADLER [id number] Natale[facility] 14:00:00 14:00:00 ALANA amin 2022-03-27 2022-03-27 Outpatient Hoang_N VFP VFP [id number] [facility] 00:00:00 00:00:00 [id number] Family Practic e 2022-03-25 2022-03-26 Emergency EM Michael De Leon [facility] [place] LA00 [id number] [facility] 21:59:00 00:20:00 95 Francisco hernandez [facility] 2022-01-07 2022-01-07 Outpatient SUSAN WOODARD [facility] [id number] [place] 10:00:00 10:00:00 [facility] 2021-07-22 2021-07-22 Outpatient GC_AWC_Nguy PRIV PRIV [id number] [facility] 03:49:00 03:49:00 en_J [id number] Medica l 2021-07-17 2021-07-17 Outpatient GC_AWC_Nguy PRIV PRIV 120 [id number] [facility] 10:46:00 10:46:00 en_J [id number] Medica l 2021-07-17 2021-07-17 Outpatient GC_AWC_Nguy PRIV PRIV 120 [id number] [facility] 10:46:00 10:46:00 en_J [id number] Medica l 2021-06-26 2021-06-26 Outpatient GC_AWC_Nguy PRIV PRIV 120 [id number] [facility] 11:10:00 11:10:00 en_J [id number] Medica l 2021-06-26 2021-06-26 Teresa [facility]IV [facility] [id number] [facility] 00:00:00 00:00:00 [facility] ica RILEY Campbell_AWC_Spri : ruma Office* [address] [address] , Ph. 2021-06-26 2021-06-26 Outpatient Yue, PRIV PRIV [id number] 00:00:00 00:00:00 Teresa [id number] [facility] [id number] 2021-06-24 2021-06-24 Outpatient GC_AWC_Nguy PRIV PRIV 120 [id number] [facility] 01:24:00 01:24:00 en_J [id number] Medica l 2021-06-17 2021-06-17 Outpatient GC_AWC_Nguy PRIV PRIV 120 [id number] [facility] 11:08:00 11:08:00 en_J [id number] Medica l 2021-06-17 [facility] [id number] [facility] 00:00:00 00:00:00 [facility] ica LAINEY CampbellAWC_Spri : [id number] ng Office* [address] [address] , Ph. 2021-06-12 2021-06-14 Inpatient [facility] [id number] [facility] 03:20:19 18:35:00 jailyn Fox The [address] [place] [address] 2021-06-11 2021-06-11 Inpatient Hannah CAMPBELL RAYO TW [id number] RAYO 22:53:00 22:20:00 TERESA 2021-06-10 2021-06-10 Outpatient GC_AWC_Nguy PRIV PRIV 120 [id number] [facility] 11:19:00 11:19:00 en_J [id number] Medica l 2021-06-10 2021-06-10 Teresa [facility]IV [facility] [id number] [facility] 00:00:00 00:00:00 [facility] ical Campbell, GC_AWC_Spri : ruma Office* [address] [address] , Ph. 2021-06-10 2021-06-10 Outpatient Campbell, PRIV PRIV [id number] 00:00:00 00:00:00 Teresa [id number] [facility] [id number] 2021-06-09 2021-06-09 Outpatient GC_AWC_Nguy PRIV PRIV 120 [id number] [facility] 11:03:00 11:03:00 en_J [id number] Medica l 2021-06-04 2021-06-04 Outpatient GC_AWC_Nguy PRIV PRIV 120 [id number] [facility] 11:54:00 11:54:00 en_J [id number] Medica l 2021-06-04 2021-06-04 Teresa [facility] 405 [facility] 00:00:00 00:00:00 [facility] Campbell, GC_AWC_Spri : [id number] ng Office* [address] [address] , Ph. 2021-06-04 2021-06-04 Outpatient Campbell, PRIV PRIV [id number] 00:00:00 00:00:00 Teresa [id number]-b [facility] [id number] 2142-03-27 2021-05-26 Outpatient GC_AWC_Nguy PRIV PRIV 120 [id number] [facility] 10:45:00 10:45:00 en_J [id number] Medica l 2021-05-23 2021-05-23 Outpatient GC_AWC_Nguy PRIV PRIV 120 [id number] [facility] 09:43:00 09:43:00 en_J [id number] Medica l 2021-05-23 2021-05-23 Teresa CEM [facility] 324 [facility] 00:00:00 00:00:00 [facility] - Med evelyn Yue GC_AWC_Spri MD: [id number] [facility]* [address] [address] , Ph. 2021-05-23 2021-05-23 Outpatient CEM Campbell PRIV [id number] 00:00:00 00:00:00 Teresa def-11ec-a [facility] [id number] 2021-05-21 2021-05-21 [facility] [id number] [facility] 00:19:51 03:20:00 jailyn Pa 03 [facility] 2021-05-20 2021-05-20 Emergency Hannah AMADO TW MHTW [id number] MHTW 19:19:00 22:20:00 ANÍBAL 2021-05-16 2021-05-16 Emergency [facility] [id number] [facility] 08:05:24 08:44:00 jailyn Pa [facility] 2021-05-16 2021-05-16 Emergency E LEYDA TW MHTW [id number] MHTW 03:05:00 03:44:00 ELMIRA 2021-05-08 2021-05-08 Outpatient GC_AWC_Nguy PRIV PRIV 120 [id number] [facility] 11:10:00 11:10:00 en_J [id number] Medica l 2021-04-30 2021-04-30 Outpatient GC_AWC_Nguy PRIV PRIV 120 [id number] [facility] 03:13:00 03:13:00 en_J [id number] Medica l 2021-04-30 2021-04-30 Outpatient GC_AWC_Nguy PRIV PRIV 120 [id number] [facility] 03:13:00 03:13:00 en_J [id number] Medica l 2021-04-23 2021-04-23 Outpatient GC_AWC_Nguy PRIV PRIV 120 [id number] [facility] 09:52:00 09:52:00 en_J [id number] Medica l 2021-04-23 2021-04-23 Teresa [facility]IV [facility] 222 [facility] 00:00:00 00:00:00 [facility] ical Yue GC_AWC_Spri : ruma Office* [address] [place] [address] , Ph. 2021-04-23 2021-04-23 Outpatient CEM Campbell PRIV [id number] 00:00:00 00:00:00 Teresa [id number] [facility] [id number] 2021-04-08 2021-04-08 Outpatient GC_TWH_Brow PRIV PRIV 120 [id number] [facility] 01:02:00 01:02:00 n_J [id number] Medica l 2021-04-08 2021-04-08 Outpatient GC_AWC_Nguy PRIV PRIV 120 [id number] [facility] 01:02:00 01:02:00 en_J [id number] Medica l 2021-04-03 2021-04-03 Outpatient GC_AWC_Nguy PRIV PRIV 120 [id number] [facility] 04:42:00 04:42:00 en_J [id number] Medica l 2021-04-03 2021-04-03 Outpatient GC_AWC_Nguy PRIV PRIV 120 [id number] [facility] 04:42:00 04:42:00 en_J [id number] Medica l 2021-04-02 2021-04-02 Outpatient GC_AWC_Nguy PRIV PRIV 120 [id number] [facility] 12:25:00 12:25:00 en_J [id number] Medica l 2021-04-02 2021-04-02 Teresa [facility]IV [facility] 201 [facility] 00:00:00 00:00:00 [facility] ical Yue GC_AWC_Spri : ruma Office* [address] [address] , Ph. 2021-04-02 2021-04-02 Outpatient Campbell, PRIV PRIV [id number] 00:00:00 00:00:00 Teresa [id number] [facility] [id number] 2021-04-01 2021-04-01 Outpatient GC_AWC_Nguy PRIV PRIV 120 [id number] [facility] 08:42:00 08:42:00 en_J [id number] Medica l 2021-03-22 2021-03-22 Outpatient GC_AWC_Nguy PRIV PRIV 120 [id number] [facility] 03:06:00 03:06:00 en_J [id number] Medica l 2021-03-21 2021-03-21 Outpatient GC_AWC_Nguy PRIV PRIV 120 [id number] [facility] 12:41:00 12:41:00 en_J [id number] Medica l 2021-03-21 2021-03-21 Outpatient Sourav [facility] PRIV [id number] 00:00:00 00:00:00 [facility] [id number] 2021-03-21 2021-03-21 Briseyda [facility] 00:00:00 00:00:00 Sourav [facility] - Medic al MD: [id number] GC_AWC_Spri I-45 [facility] [place] [address] , Ph. 2021-03-19 2021-03-19 Outpatient GC_AWC_Nguy PRIV PRIV [id number] [facility] 04:53:00 04:53:00 en_J [id number] Medica l 2021-01-28 2021-01-28 Outpatient GC_AWC_Nguy PRIV PRIV 120 [id number] [facility] 03:35:00 03:35:00 en_J [id number] Medica l 2021-01-26 2021-01-26 Emergency [facility] [id number] [facility] 03:11:41 06:23:00 jailyn Fox [address] 2021-01-21 2021-01-21 Emergency EM Sudha, [facility] [id number] [facility] 20:13:00 22:51:00 Shamir [id number] [facility] 2021-01-21 2021-01-21 Emergency EM Sud[facility], [facility] [id number] [facility] 20:13:00 22:51:00 Shamir 22 [facility] 2020-12-03 2020-12-03 Office SHU TEIXEIRA [facility] [id number] [facility] 08:17:32 08:48:12 Visit AMBULATOR [id number] College Y 0.2.7.2.686 of [id number] [facility] kayy 800 e 2020-12-03 2020-12-03 Office JUANITO DAILEY [facility] [id number] [facility] 00:00:00 00:00:00 Visit AMBULATOR 350.1.13.21 College Y 0.2.7.2.686 of [id number] [facility] kayy 800 e 2020-07-01 2020-07-01 Departed 1 KAPIL [facility] A00 [id number] [facility] 17:44:00 22:18:00 Emergency MALACHI Patients 91 Gabriele es Room [facility] 2017-11-24 2017-11-24 Ambulatory nullFlavo [facility] [id number] [facility] 16:00:00 16:00:00 Pre-Reg r Primary 04 [facility] 2017-11-10 2017-11-11 Outpatient nullFlavo [facility] [id number] [facility] 20:30:00 04:59:59 r Primary 03 [facility] 2017-10-20 2017-10-20 Ambulatory nullFlavo [facility] [id number] [facility] 19:45:00 19:45:00 Pre-Reg r Primary 02 [facility] 2017-09-20 2017-09-21 Phone nullFlavo [facility] [id number] [facility] 03:06:00 04:59:59 Message r Primary 00 [facility] 2017-09-18 2017-09-19 Outpatient nullFlavo [facility] [id number] [facility] 18:30:00 04:59:59 r Primary 01 [facility] 2017-09-04 2017-09-05 Outpatient nullFlavo [facility] [id number] [facility] 20:00:00 04:59:59 r Primary 00 l Care [facility] Results Test Description Test Time Test Comments Results Result Comments Source BASIC METABOLIC PANEL 2022-03-25 23:33:00 Test Item Value Reference Range Interpretation Comme nts SODIUM (test code = NA) 143 mmol/L 134-147 N POTASSIUM (test code = 3.9 mmol/L 3.4-5.0 N K) CHLORIDE (test code = 112 mmol/L 100-108 H CL) CARBON DIOXIDE (test 24 mmol/L 21-32 N code = CO2) ANION GAP (test code = 7.0 GAP calc 4.0-15.0 N GAP) GLUCOSE (test code = 165 MG/DL 70-110 H GLU) BLOOD UREA NITROGEN 9 MG/DL 7-18 N (test code = BUN) GLOMERULAR FILTRATION >=60 max estimate >60 T he Glomerular Filtration RATE (test code = GFR) estGFR Rate is a calculated parameterbased on serum Creatinine, pat ient age and sex. GFR values less than 60 mL/min/1.73 squ are meters are indicative ofChronic Kidney Disease. Values less than 15 mL/min/ 1.73square meters indicate Kidney failure. The ca lculation forGFR is based on the CKD-EPI (2020) calculation. This formulais race indifferent and is the recommended for marj for GFRby the [facility] Foundation for Adults.The GFR will not ca lculate if the sex is unkn own or if thepatient's ag e is <18 years. CREATININE (test code = 0.7 MG/DL 0.6-1.0 N CREAT) CALCIUM (test code = CA) 9.6 MG/DL 8.5-10.1 N HCG [id number] 23:13:00 Test Item Value Reference Range Interpretation Comments HCG SERUM (test 12 mi-IU/ML 0-6 H 0 - 6 NOT P REGNANT > 6 code = HCG) SUGGESTIVE OF E KATIA RISES TWO FOLD EVERY 2 DAYS; S UGGEST RECONFIRMING AF TER 2 DAYS. 150,000-2 00,[address] TRIMESTER 10 ,000 - 50,000 2ND & 3R D TRIMESTER CBC W/O [id number] 23:06:00 Test Item Value Reference Range Interpretation Comments WHITE BLOOD CELL (test code = WBC) 6.7 K/mm3 3.5-11.0 N RED BLOOD CELL (test code = RBC) 4.37 M/mm3 4.70-6.10 L HEMOGLOBIN (test code = HGB) 12.7 G/DL 10.4-14.9 N HEMATOCRIT (test code = HCT) 37.4 % 31.5-44.1 N MEAN CELL VOLUME (test code = MCV) 85.6 Fl 84.5-98.6 N MEAN CELL HGB (test code = MCH) 29.1 pg 27.0-34.2 N MEAN CELL HGB CONCETRATION (test 34.0 G/DL 31.5-34.0 N code = MCHC) RED CELL DISTRIBUTION WIDTH (test 12.8 SD 11.5-14.5 N code = RDW) PLATELET COUNT (test code = PLT) 259 K/mm3 150-450 N MEAN PLATELET VOLUME (test code = 10.20 fL 7.0-10.5 N MPV) Chlamydia trachomatis and Neisseria gonorrhoeae rRNA panel - Specimen by YEMI with probe [id number] 00:00:00 Test Item Value Reference Range Interpretation Comments aptima combo 2 swab (CT) (test code = CT neg negative aptima combo 2 swab (CT)) aptima combo 2 swab (GC) (test code = GC neg negative aptima combo 2 swab (GC)) [facility] 2021-06-27 00:00:00 Test Item Value Reference Range Interpretation Comments trichomonas vaginalis swab (test trich neg negative code = trichomonas vaginalis swab) [id number] 03:41:00 Test Item Value Reference Range Interpretation Comments Hgb (test code = Hgb) 10.2 12.0-16.0 [id number] 03:41:00 Test Item Value Reference Range Interpretation Comments Hct (test code = Hct) 29.0 36.0-48.0 [facility] AustinXvdelhgUMKFWBNSQG3605-92-51 03:56:00 Test Item Value Reference Range Interpretation Comments Hct (test code = Hct) 31.4 36.0-48.0 [facility] [id number] 03:56:00 Test Item Value Reference Range Interpretation Comments MCV (test code = MCV) 85.3 80.0-98.0 [place] [id number] 03:56:00 Test Item Value Reference Range Interpretation Comments MCH (test code = MCH) 29.7 pg 27.0-31.0 [place] [id number] 03:56:00 Test Item Value Reference Range Interpretation Comments MCHC (test code = MCHC) 34.8 32.0-36.0 [facility] AustinIjcofjeRYRJVGIVSP8696-33-45 03:56:00 Test Item Value Reference Range Interpretation Comments RDW (test code = RDW) 13.3 11.5-14.5 [place] [id number] 03:56:00 Test Item Value Reference Range Interpretation Comments Platelet (test code = Platelet) 204 133-450 [facility] [id number] 03:56:00 Test Item Value Reference Range Interpretation Comments MPV (test code = MPV) 9.2 7.4-10.4 [facility] [id number] 03:56:00 Test Item Value Reference Range Interpretation Comments Segs (test code = Segs) 80.6 45.0-75.0 [place] [id number] 03:56:00 Test Item Value Reference Range Interpretation Comments Lymphocytes (test code = Lymphocytes) 13.9 20.0-40.0 [facility] AustinBxdqnohUOJSSKQWLU0985-48-45 03:56:00 Test Item Value Reference Range Interpretation Comments Monocytes (test code = Monocytes) 5.0 2.0-12.0 [facility] AustinBrmkphcEGOYTOWERV9610-61-31 03:56:00 Test Item Value Reference Range Interpretation Comments Eosinophils (test code = 0.2 See_Comment [A utomated message] The Eosinophils) system which ge nerated this result tra nsmitted reference range : <=4.0. The reference r sagar was not used to int erpret this result as normal/abnormal . [place] [id number] 03:56:00 Test Item Value Reference Range Interpretation Comments Basophils (test code = 0.3 See_Comment [Aut omated message] The Basophils) system which ge nerated this result tra nsmitted reference range : <=1.0. The reference r sagar was not used to int erpret this result as normal/abnormal . [facility] [id number] 03:56:00 Test Item Value Reference Range Interpretation Comments Neutrophils # (test code = Neutrophils 7.9 1.5-8.1 #) [id number] 03:56:00 Test Item Value Reference Range Interpretation Comments Lymphocytes # (test code = Lymphocytes 1.4 1.0-5.5 #) [id number] 03:56:00 Test Item Value Reference Range Interpretation Comments Monocytes # (test code 0.5 See_Comment [Aut omated message] The = Monocytes #) system which generated this result tra nsmitted reference range : <=0.8. The reference r sagar was not used to int erpret this result as normal/abnormal . [id number]:56:00 Test Item Value Reference Range Interpretation Comments Hep Bs Ag (test code Negative *NA*(06/11/21 = Hep Bs Ag) 10:56 PM) [facility] H[id number] 03:56:00 Test Item Value Reference Range Interpretation Comments HIV Ag/Ab 4th Gen Negative *NA*(06/11/21 (test code = HIV 10:56 PM) Ag/Ab 4th Gen) [facility]wjlzzOGFNMPYITS9144-39-37 03:56:00 Test Item Value Reference Range Interpretation Comments Treponemal Ab (test code Non-Reactive = Treponemal Ab) *NA*(06/11/21 10:56 PM) [facility] HospitalXcgsaepIRMRKYOBYE0158-88-68 03:56:00 Test Item Value Reference Range Interpretation Comments Coronavirus (COVID-19) Not Detected (06/11/21 YEMI (test code = 10:56 PM) Coronavirus (COVID-19) YEMI) [facility] [id number] 03:56:00 Test Item Value Reference Range Interpretation Comments ABO/Rh (test code = ABO/Rh) A POS [facility] Rec[facility] [id number] 03:56:00 Test Item Value Reference Range Interpretation Comments Antibody Scrn (test Negative (06/11/21 code = Antibody Scrn) 10:56 PM) [facility] [id number] 03:56:00 Test Item Value Reference Range Interpretation Comments Rhig Reqd (test code = See Note 1(06/11/21 Rhig Reqd) 10:56 PM) [facility] AustinMneytovAGVYKOLYEN9365-67-39 03:56:00 Test Item Value Reference Range Interpretation Comments WBC (test code = WBC) 9.9 3.7-10.4 [facility]FHSCBZBLF8629[facility]36-71 03:56:00 Test Item Value Reference Range Interpretation Comments RBC (test code = RBC) 3.68 4.20-5.40 [facility] RegionBytbvumYKRKBLOXDQ6515-16-75 03:56:00 Test Item Value Reference Range Interpretation Comments Hgb (test code = Hgb) 10.9 12.0-16.0 [facility] Urine by Screen [id number] 00:00:00 Test Item Value Reference Range Interpretation Comments drug screen urine (12) (test code = tnp drug screen urine (12)) [facility] agalactiae [Presence] in Specimen by Organism specific [id number] 00:00:00 Test Item Value Reference Range Interpretation Comments culture, genital (strep B) (test negative negative code = culture, genital (strep B)) [facility] identified in Urine by Screen [id number] 00:00:00 Test Item Value Reference Range Interpretation Comments drug screen urine (12) (test code = tnp drug screen urine (12)) [facility] agalactiae [Presence] in Specimen by Organism specific [id number] 00:00:00 Test Item Value Reference Range Interpretation Comments culture, genital (strep B) (test negative negative code = culture, genital (strep B)) [facility] identified in Urine by [id number] 00:00:00 Test Item Value Reference Range Interpretation Comments Bacteria identified in enterococcus faecalis A Urine by Culture (test code = 630-4) Other Antibiotic comment [Susceptibility] (test code = 85897-9) [facility] identified in Urine by [id number] 00:00:00 Test Item Value Reference Range Interpretation Comments Bacteria identified in enterococcus faecalis A Urine by Culture (test code = 630-4) Other Antibiotic comment [Susceptibility] (test code = 34537-0) [facility] identified in Urine by Screen [id number] 00:00:00 Test Item Value Reference Range Interpretation Comments amphetamines (test code = negative <1000 amphetamines) barbiturates (test code = negative <200 barbiturates) benzodiazepines (test code = negative <200 benzodiazepines) cocaine (test code = cocaine) negative <300 creatinine (test code = 100.4 mg/dL >19.9 creatinine) methadone (test code = methadone) negative <300 opiates (test code = opiates) negative <300 phencyclidine(pcp) (test code = negative <25 phencyclidine(pcp)) alcohol (test code = alcohol) negative <20 buprenorphine (test code = negative <5 buprenorphine) ecstasy (MDMA) (test code = negative neg(300NG/mL) ecstasy (MDMA)) THC (test code = THC) negative <20 [facility] identified in Urine by Screen [id number] 00:00:00 Test Item Value Reference Range Interpretation Comments amphetamines (test code = negative <1000 amphetamines) barbiturates (test code = negative <200 barbiturates) benzodiazepines (test code = negative <200 benzodiazepines) cocaine (test code = cocaine) negative <300 creatinine (test code = 100.4 mg/dL >19.9 creatinine) methadone (test code = methadone) negative <300 opiates (test code = opiates) negative <300 phencyclidine(pcp) (test code = negative <25 phencyclidine(pcp)) alcohol (test code = alcohol) negative <20 buprenorphine (test code = negative <5 buprenorphine) ecstasy (MDMA) (test code = negative neg(300NG/mL) ecstasy (MDMA)) THC (test code = THC) negative <20 [facility]reptococcus agalactiae [Presence] in Specimen by Organism specific [id number] 00:00:00 Test Item Value Reference Range Interpretation Comments culture, genital grp B (test code = tnp culture, genital grp B) [facility] identified in Urine by Screen [id number] 00:00:00 Test Item Value Reference Range Interpretation Comments amphetamines (test code = negative <1000 amphetamines) barbiturates (test code = negative <200 barbiturates) benzodiazepines (test code = negative <200 benzodiazepines) cocaine (test code = cocaine) negative <300 creatinine (test code = 100.4 mg/dL >19.9 creatinine) methadone (test code = methadone) negative <300 opiates (test code = opiates) negative <300 phencyclidine(pcp) (test code = negative <25 phencyclidine(pcp)) alcohol (test code = alcohol) negative <20 buprenorphine (test code = negative <5 buprenorphine) ecstasy (MDMA) (test code = negative neg(300NG/mL) ecstasy (MDMA)) THC (test code = THC) negative <20 [facility] agalactiae [Presence] in Specimen by Organism specific [id number] 00:00:00 Test Item Value Reference Range Interpretation Comments culture, genital grp B (test code = tnp culture, genital grp B) [facility]achomat[facility] and Neisseria gonorrhoeae rRNA panel - Specimen by YEMI with probe [id number] 00:00:00 Test Item Value Reference Range Interpretation Comments aptima combo 2 swab (CT) (test code = CT neg negative aptima combo 2 swab (CT)) aptima combo 2 swab (GC) (test code = GC neg negative aptima combo 2 swab (GC)) [facility] vaginalis [facility] (swhl) 2021-05-24 00:00:00 Test Item Value Reference Range Interpretation Comments trichomonas vaginalis swab (test trich neg negative code = trichomonas vaginalis swab) [facility] Medical[facility]lamydia trachomatis and Neisseria gonorrhoeae rRNA panel - Specimen by YEMI with probe [id number] 00:00:00 Test Item Value Reference Range Interpretation Comments aptima combo 2 swab (CT) (test code = CT neg negative aptima combo 2 swab (CT)) aptima combo 2 swab (GC) (test code = GC neg negative aptima combo 2 swab (GC)) [facility] vaginalis [facility] (swhl) 2021-05-24 00:00:00 Test Item Value Reference Range Interpretation Comments trichomonas vaginalis swab (test trich neg negative code = trichomonas vaginalis swab) [facility] MedicalCulture: [id number] 02:15:00 Test Item Value Reference Range Interpretation Comments Culture: Urine (test code No Growth; Holding = Culture: Urine) [facility] AND [id number] 01:04:00 Test Item Value Reference Range Interpretation Comments UA Color (test code = Dolores *ABN*(05/20/21 UA Color) 8:04 PM) [facility] AND [id number] 01:04:00 Test Item Value Reference Range Interpretation Comments UA Turbidity (test code Marked *ABN*(05/20/21 = UA Turbidity) 8:04 PM) [facility] AND [id number] 01:04:00 Test Item Value Reference Range Interpretation Comments UA Spec Grav (test code = UA Spec 1.017 1 Grav) [facility] AND [id number] 01:04:00 Test Item Value Reference Range Interpretation Comments UA pH (test code = UA pH) 5.0 1 5.0-8.0 [facility] AND [id number] 01:04:00 Test Item Value Reference Range Interpretation Comments UA Protein (test code = UA Negative mg/dL Protein) [facility] AND [id number] 01:04:00 Test Item Value Reference Range Interpretation Comments UA Glucose (test code = UA Negative mg/dL Glucose) [facility] AND [id number] 01:04:00 Test Item Value Reference Range Interpretation Comments UA Ketones (test code = UA Negative mg/dL Ketones) [facility] AND [id number] 01:04:00 Test Item Value Reference Range Interpretation Comments UA Bili (test code = Negative *NA*(05/20/21 UA Bili) 8:04 PM) [facility] AND [id number] 01:04:00 Test Item Value Reference Range Interpretation Comments UA Blood (test code = Negative (05/20/21 8:04 UA Blood) PM) [facility] AND [id number] 01:04:00 Test Item Value Reference Range Interpretation Comments UA Urobilinogen (test code = UA 4.0 0.1-1.0 Urobilinogen) [facility] AND [id number] 01:04:00 Test Item Value Reference Range Interpretation Comments UA Nitrite (test code Negative (05/20/21 8:04 = UA Nitrite) PM) [facility] AND [id number] 01:04:00 Test Item Value Reference Range Interpretation Comments UA Leuk Est (test Moderate *ABN*(05/20/21 code = UA Leuk Est) 8:04 PM) [facility] Sriram AND [id number] 01:04:00 Test Item Value Reference Range Interpretation Comments UA Sq Epi (test code = UA Sq Epi) [facility] [id number] 01:04:00 Test Item Value Reference Range Interpretation Comments UA WBC (test code = 21 See_Comment [Automa kim message] The UA WBC) system which ge nerated this result transmit kim reference range : <=5. The reference range was not used to interpr et this result as rao l/abnormal. Johnny Bhatia AND [id number] 01:04:00 Test Item Value Reference Range Interpretation Comments UA RBC (test code = 5 See_Comment [Automa kim message] The UA RBC) system which ge nerated this result transmit kim reference range : <=2. The reference range was not used to interpr et this result as rao l/abnormal. [facility] Sriram AND [id number] 01:04:00 Test Item Value Reference Range Interpretation Comments UA Bacteria (test code = UA Occasional /HPF Bacteria) [facility] Sriram AND [id number] 01:04:00 Test Item Value Reference Range Interpretation Comments UA Mucus (test code = UA Mucus) Few /LPF [facility] RuddyGlucose [Mass/volume] in Serum or Plasma --1 hour post XXX [id number] 00:00:00 Test Item Value Reference Range Interpretation Comments glucose, 1HR pp (test code = 144 mg/dL <200 glucose, 1HR pp) [facility] panel - Blood by Automated [id number] 00:00:00 Test Item Value Reference Range Interpretation Comments WBC (test code = WBC) 10.59 x10(3)/uL 4.00-10.10 H RBC (test code = RBC) 3.55 x10(6)/uL 3.58-5.19 L HGB (test code = HGB) 10.7 g/dL 11.0-15.5 L HCT (test code = HCT) 31.2 % 31.5-44.8 L MCV (test code = MCV) 87.9 fL 78.0-98.0 MCH (test code = MCH) 30.1 pg 25.2-32.6 MCHC (test code = MCHC) 34.3 g/dL 31.0-34.7 RDW (test code = RDW) 12.5 % 12.0-15.5 platelet count (test code = 255 x10(3)/uL 140-425 platelet count) MPV (test code = MPV) 11.0 fL 8.6-12.1 [facility]atitis C virus RNA [Units/volume] (viral load) in Serum or Plasma by YEMI with probe [id number] 00:00:00 Test Item Value Reference Range Interpretation Comments hep. C RNA, (log-10) (test code = hep. <1.18 <1.18 C RNA, (log-10)) hep. C RNA, (IU) (test code = hep. C <15 nd <15 RNA, (IU)) [facility]HIV 1+2 Ab+HIV1 p24 Ag [Presence] in Serum or Plasma by [id number] 00:00:00 Test Item Value Reference Range Interpretation Comments ethnicity: (test code = ethnicity:) race: (test code = race:) other HIV Ag/Ab (test code = HIV non-reactive non-reactive Ag/Ab) [facility]atitis B virus surface Ag [Presence] in [id number] 00:00:00 Test Item Value Reference Range Interpretation Comments ethnicity: (test code = ethnicity:) race: (test code = race:) other hep. B surf. Ag (test code = non-reactive non-reactive hep. B surf. Ag) [facility] MedicalReagin Ab [Presence] in Serum by [id number] 00:00:00 Test Item Value Reference Range Interpretation Comments ethnicity: (test code = ethnicity:) race: (test code = race:) other RPR (test code = RPR) non-reactive non-reactive [employer] [id number] 04:28:00 Test Item Value Reference Range Interpretation Comments Glucose Lvl (test code = Glucose Lvl) 84 70-99 [place] [id number] 04:28:00 Test Item Value Reference Range Interpretation Comments BUN (test code = BUN) 7 7-22 [facility] [place] [address]-11-27 04:28:00 Test Item Value Reference Range Interpretation Comments Creatinine Lvl (test code = Creatinine 0.46 0.50-1.40 Lvl) [place] [address]-11-27 04:28:00 Test Item Value Reference Range Interpretation Comments Sodium Lvl (test code = Sodium Lvl) 136 135-145 [place] [address]-11-27 04:28:00 Test Item Value Reference Range Interpretation Comments Potassium Lvl (test code = Potassium 3.7 3.5-5.1 Lvl) [address]11-27 04:28:00 Test Item Value Reference Range Interpretation Comments Chloride Lvl (test code = Chloride Lvl) 105 95-109 [place] [address]-11-27 04:28:00 Test Item Value Reference Range Interpretation Comments CO2 (test code = CO2) 25 24-32 [place] [address]-11-27 04:28:00 Test Item Value Reference Range Interpretation Comments Calcium Lvl (test code = Calcium Lvl) 8.7 8.5-10.5 [place] [address]-11-27 04:28:00 Test Item Value Reference Range Interpretation Comments AGAP (test code = AGAP) 9.7 10.0-20.0 [place] [address]-11-27 04:28:00 Test Item Value Reference Range Interpretation Comments eGFR (test code = eGFR) [address] [place] [address]-27 04:28:00 Test Item Value Reference Range Interpretation Comments Lipase Lvl (test code = Lipase Lvl) 61 73-393 [place] [address]-11-27 04:28:00 Test Item Value Reference Range Interpretation Comments Total Protein (test code = Total 7.4 6.4-8.4 Protein) [place] [address]-27 04:28:00 Test Item Value Reference Range Interpretation Comments Albumin Lvl (test code = Albumin Lvl) 3.3 3.5-5.0 [place] [address]-11-27 04:28:00 Test Item Value Reference Range Interpretation Comments ALT (test code = ALT) 27 See_Comment [Auto mated message] The system which ge nerated this result transmit kim reference range : <=65. The reference range was not used to interpr et this result as rao l/abnormal. [place] 320221-11-27 04:28:00 Test Item Value Reference Range Interpretation Comments AST (test code = AST) 11 See_Comment [Auto mated message] The system which ge nerated this result transmit kim reference range : <=37. The reference range was not used to interpr et this result as rao l/abnormal. [place] 320221-11-27 04:28:00 Test Item Value Reference Range Interpretation Comments Alk Phos (test code = Alk Phos) 52 39-136 [place] 320221-11-27 04:28:00 Test Item Value Reference Range Interpretation Comments Bili Total (test code = Bili Total) 0.3 0.2-1.3 [place] 320221-11-27 04:28:00 Test Item Value Reference Range Interpretation Comments Bili Direct (test code 0.1 See_Comment [Aut omated message] The = Bili Direct) system which generated this result tra nsmitted reference range : <=0.3. The reference r sagar was not used to int erpret this result as rao l/abnormal. [place] 320221-11-27 04:28:00 Test Item Value Reference Range Interpretation Comments Bili Indirect (test 0.2 See_Comment [Automa kim message] The code = Bili Indirect) system which generated this result tra nsmitted reference range : <=1.0. The reference r sagar was not used to int erpret this result as normal/abnormal . [place] 320221-11-27 04:28:00 Test Item Value Reference Range Interpretation Comments Globulin (test code = Globulin) 4.1 2.7-4.2 [place] 320221-11-27 04:28:00 Test Item Value Reference Range Interpretation Comments A/G Ratio (test code = A/G Ratio) 0.8 1 0.7-1.[address] [facility]OhqtfrwHAMIIQYRJJSCY4368-22-96 04:28:00 Test Item Value Reference Range Interpretation Comments hCG Tot (test code = hCG Tot) [address] [place] 473871-11-27 04:28:00 Test Item Value Reference Range Interpretation Comments WBC (test code = WBC) 9.0 3.7-10.[address]11-27 04:28:00 Test Item Value Reference Range Interpretation Comments RBC (test code = RBC) 3.91 4.20-5.40 [place] 473871-11-27 04:28:00 Test Item Value Reference Range Interpretation Comments Hgb (test code = Hgb) 11.9 12.0-16.0 [place] 473871-11-27 04:28:00 Test Item Value Reference Range Interpretation Comments Hct (test code = Hct) 34.1 36.0-48.0 [place] 473871-11-27 04:28:00 Test Item Value Reference Range Interpretation Comments MCV (test code = MCV) 87.2 80.0-98.0 [place] 473871-11-27 04:28:00 Test Item Value Reference Range Interpretation Comments MCH (test code = MCH) 30.4 pg 27.0-31.0 [place] 473871-11-27 04:28:00 Test Item Value Reference Range Interpretation Comments MCHC (test code = MCHC) 34.9 32.0-36.0 [facility]PvlqzrrQLXPXAIEBX8432-12-28 04:28:00 Test Item Value Reference Range Interpretation Comments RDW (test code = RDW) 13.2 11.5-14.5 [facility] AustinTtdvczoAXGHAIOQTR8731-80-33 04:28:00 Test Item Value Reference Range Interpretation Comments Platelet (test code = Platelet) 281 133-450 [facility] AustinVruswvuRPPRCEJBLL7394-19-97 04:28:00 Test Item Value Reference Range Interpretation Comments MPV (test code = MPV) 8.0 7.4-10.4 [place] 473871-11-27 04:28:00 Test Item Value Reference Range Interpretation Comments Segs (test code = Segs) 75.9 45.0-75.0 [place] 473871-11-27 04:28:00 Test Item Value Reference Range Interpretation Comments Lymphocytes (test code = Lymphocytes) 19.7 20.0-40.0 [place] 473871-11-27 04:28:00 Test Item Value Reference Range Interpretation Comments Monocytes (test code = Monocytes) 3.2 2.0-12.0 [place] 473871-11-27 04:28:00 Test Item Value Reference Range Interpretation Comments Eosinophils (test code = 0.3 See_Comment [A utomated message] The Eosinophils) system which ge nerated this result tra nsmitted reference range : <=4.0. The reference r sagar was not used to int erpret this result as normal/abnormal . [facility] AustinHtlbenpNEJWYEJQNZ6287-71-56 04:28:00 Test Item Value Reference Range Interpretation Comments Basophils (test code = 0.9 See_Comment [Aut omated message] The Basophils) system which ge nerated this result tra nsmitted reference range : <=1.0. The reference r sagar was not used to int erpret this result as normal/abnormal . [facility] AustinSmryshbCQUAVPBCSD8546-69-61 04:28:00 Test Item Value Reference Range Interpretation Comments Neutrophils # (test code = Neutrophils 6.9 1.5-8.1 #) [facility] AustinCtubuizSXALYSYKER6810-63-68 04:28:00 Test Item Value Reference Range Interpretation Comments Lymphocytes # (test code = Lymphocytes 1.8 1.0-5.5 #) [facility] AustinFehfroaFJTAODXMEW1827-77-80 04:28:00 Test Item Value Reference Range Interpretation Comments Monocytes # (test code 0.3 See_Comment [Aut omated message] The = Monocytes #) system which generated this result tra nsmitted reference range : <=0.8. The reference r sagar was not used to int erpret this result as normal/abnormal . [facility] AustinRybhoxjPVFYECCPLG4992-78-64 04:28:00 Test Item Value Reference Range Interpretation Comments Basophils # (test code 0.1 See_Comment [Aut omated message] The = Basophils #) system which generated this result tra nsmitted reference range : <=0.2. The reference r sagar was not used to int erpret this result as normal/abnormal . [facility] AND [id number] 04:07:00 Test Item Value Reference Range Interpretation Comments UA Color (test code = Dolores *ABN*(01/25/21 UA Color) 10:07 PM) [facility] AND [id number] 04:07:00 Test Item Value Reference Range Interpretation Comments UA Turbidity (test code Slight *ABN*(01/25/21 = UA Turbidity) 10:07 PM) [facility] AND [id number] 04:07:00 Test Item Value Reference Range Interpretation Comments UA Spec Grav (test code = UA Spec 1.020 1 Grav) [facility] AND [id number] 04:07:00 Test Item Value Reference Range Interpretation Comments UA pH (test code = UA pH) 5.0 1 5.0-8.0 [facility] AND [id number] 04:07:00 Test Item Value Reference Range Interpretation Comments UA Protein (test code = UA Negative mg/dL Protein) [facility] AND [id number] 04:07:00 Test Item Value Reference Range Interpretation Comments UA Glucose (test code = UA Negative mg/dL Glucose) [facility] AND [id number] 04:07:00 Test Item Value Reference Range Interpretation Comments UA Ketones (test code = UA Ketones) 80 mg/dL [facility] AND [id number] 04:07:00 Test Item Value Reference Range Interpretation Comments UA Bili (test code = Negative *NA*(01/25/21 UA Bili) 10:07 PM) [facility] AND [id number] 04:07:00 Test Item Value Reference Range Interpretation Comments UA Blood (test code = Negative (01/25/21 10:07 UA Blood) PM) [facility] AND [id number] 04:07:00 Test Item Value Reference Range Interpretation Comments UA Urobilinogen (test code = UA 2.0 0.1-1.0 Urobilinogen) [facility] AND [id number] 04:07:00 Test Item Value Reference Range Interpretation Comments UA Nitrite (test code Negative (01/25/21 = UA Nitrite) 10:07 PM) [facility] AND [id number] 04:07:00 Test Item Value Reference Range Interpretation Comments UA Leuk Est (test code Trace *ABN*(01/25/21 = UA Leuk Est) 10:07 PM) [facility] AND [id number] 04:07:00 Test Item Value Reference Range Interpretation Comments UA Sq Epi (test code = UA Sq Epi) Many /LPF [facility] AND [id number] 04:07:00 Test Item Value Reference Range Interpretation Comments UA WBC (test code = 4 See_Comment [Automa kim message] The UA WBC) system which ge nerated this result transmit kim reference range : <=5. The reference range was not used to interpr et this result as rao l/abnormal. [facility] Sriram AND [id number] 04:07:00 Test Item Value Reference Range Interpretation Comments UA RBC (test code = 3 See_Comment [Automa kim message] The UA RBC) system which ge nerated this result transmit kim reference range : <=2. The reference range was not used to interpr et this result as rao l/abnormal. [facility] AND [id number] 04:07:00 Test Item Value Reference Range Interpretation Comments UA Bacteria (test code = UA Occasional /HPF Bacteria) [facility] AND [id number] 04:07:00 Test Item Value Reference Range Interpretation Comments UA Mucus (test code = UA Mucus) Few /[facility] [id number] 22:03:00 Test Item Value Reference Range Interpretation Comments UA COLOR (test code = DARK YELLOW YELLOW A COLU) UA APPEARANCE (test code SLIGHT CLOUDY CLEAR A = APPU) UA GLUCOSE DIPSTICK (test norm mg/dL NEGATIVE code = DGLUU) UA BILIRUBIN DIPSTICK NEGATIVE mg/dL NEGATIVE (test code = BILU) UA KETONE DIPSTICK (test 150 (4+) mg/dL NEGATIVE A code = KETU) UA SPECIFIC GRAVITY (test 1.025 1.001-1.035 code = SGU) UA BLOOD DIPSTICK (test neg Joseph/uL NEGATIVE code = KAYLA) UA PH DIPSTICK (test code 6.0 5.0-8.0 = MICHAEL) UA PROTEIN DIPSTICK (test 30 (1+) mg/dL Neg-15 A code = PROU) UA UROBILINIOGEN DIPSTICK 1 mg/dL 0.0-0.2 A (test code = URO) UA NITRITE DIPSTICK (test NEGATIVE NEGATIVE code = AURE) UA LEUKOCYTE ESTERASE 500 Calin/uL (3+) uL NEGATIVE A DIPSTICK (test code = LEUU) UA WBC (test code = WBCU) 5-10 per HPF 0-5 A UA RBC (test code = RBCU) NONE SEEN per HPF 0-5 UA EPITHELIAL CELLS (test Many (>10/hpf) per Few A code = EPIU) HPF UA BACTERIA (test code = MANY per HPF NONE A BACU) Urine Source? Clean CatchBASIC METABOLIC [id number] 21:16:00 Test Item Value Reference Range Interpretation Comments SODIUM (test code = 139 mmol/L 136-145 N NA) POTASSIUM (test code 3.6 mmol/L 3.5-5.1 N = K) CHLORIDE (test code = 104 mmol/L 101-109 N CL) CARBON DIOXIDE (test 24.9 mmol/L 21-32 N code = CO2) ANION GAP (test code 14 mmol/L 10-20 N = GAP) GLUCOSE (test code = 85 mg/dL 74-106 N GLU) BLOOD UREA NITROGEN 8 mg/dL 3-21 N (test code = BUN) GLOMERULAR FILTRATION > 60 mL/min See_Comment Estima kim GFR by RATE (test code = using Kuldeep fied MDRD GFR) formula.Chronic kidney disease is defined as eith er kidney damageor GFR <60 mL/min/1.73 m2 for >3 months. [Automated mess age] The system [employer] generated this result transmitted ref erence range: >=60. Th e reference range was not used to int erpret this result as normal/abnormal . CREATININE (test code 0.59 mg/dL 0.55-1.3 N = CREAT) BUN/CREATININE RATIO 13.6 10-20 N (test code = BUN/CREA) CALCIUM (test code = 8.6 mg/dL 8.4-10.2 N CA) HEPATIC FUNCTION [id number] 21:16:00 Test Item Value Reference Range Interpretation Comments TOTAL PROTEIN (test 7.3 g/dL 6.5-8.4 N code = PROT) ALBUMIN (test code = 3.2 g/dL 3.4-4.8 L ALB) GLOBULIN (test code = 4.1 G/DL 1-10 N GLOB) ALBUMIN/GLOBULIN RATIO 0.78 RATIO 0.75-1.50 N (test code = A/G) BILIRUBIN TOTAL (test 0.40 mg/dL 0.0-1.0 N code = BILT) BILIRUBIN DIRECT (test 0.20 mg/dL 0.0-0.30 N code = BILD) SGOT/AST (test code = 21 U/L 6-32 N AST) SGPT/ALT (test code = 32 U/L 12-78 N Note: Change in ALT) REFERENCE RANGE due to new reagent method. ALKALINE PHOSPHATASE 51 U/L 38-126 N TOTAL (test code = ALKP) [id number] 21:16:00 Test Item Value Reference Range Interpretation Comments LIPASE (test code = LIP) 59 U/L 128-270 L CBC W/O [id number] 20:41:00 Test Item Value Reference Range Interpretation Comments WHITE BLOOD CELL (test code = 7.8 K/mm3 4.5-12.5 N WBC) RED BLOOD CELL (test code = 3.81 mill/mm3 3.7-5.2 N RBC) HEMOGLOBIN (test code = HGB) 11.6 gram/dL 11.5-15.5 N HEMATOCRIT (test code = HCT) 33.9 % 36.0-46.0 L MEAN CELL VOLUME (test code = 89.0 fL 80-98 N MCV) MEAN CELL HGB (test code = MCH) 30.4 picogram 27.0-33.0 N MEAN CELL HGB CONCETRATION 34.2 gram/dL 33.0-36.0 N (test code = MCHC) RED CELL DISTRIBUTION WIDTH 13.0 % 11.6-16.2 N (test code = RDW) RED CELL DISTRIBUTION WIDTH SD 42.7 fL 37.0-51.0 N (test code = RDW-SD) PLATELET COUNT (test code = 262 K/mm3 150-450 N PLT) MEAN PLATELET VOLUME (test code 9.6 fL 6.7-11.0 N = MPV) [id number] 20:45:00 [facility] : 2000 Sex: F [facility] [address] [address] Patient Name: JULIETTE HERNANDEZ MR #: [id number] : 2000 Age/Sex: 20/F Req #: [id number] Adm Physician: Ordered by: MALACHI DICK MD Report #: [id number] Location:ER Room/Bed: Procedure: [id number] US/US GALLBLADDER Exam Date: 07/01/20 Exam Time: 1907 REPORT STATUS: Signed EXAM: Right Upper Quadrant Ultrasound INDICATION: ruq pain [id number] Y COMPARISON: None.TECHNIQUE: Transverse and longitudinal images of the right upper abdomen were obtained. FINDINGS: Liver: Size: 13.6 cm in the right midclavicular line, normal Appearance: Normal echogenicity, smooth contour Mass: No focal masses Gallbladder: Stones/Sludge: None Wall: 0.2 cm Appearance: No pericholecystic fluid or hydrops. Sonographic Meredith's Sign: Negative Bile Ducts: Intrahepatic Ducts: No dilatation Extrahepatic Ducts: Common bile duct measures 0.2 cm, no dilatation Pancreas: Visualized portions of the pancreatic head, neck and proximal body are normal. Right Kidney: Size: 9 cm Echogenicity: Normal Parenchymal thickness: Normal Collecting system: No hydronephrosis Stones: None Cyst/Mass: None Vessels: Main Portal Vein: Diameter: 0.8 cm, normal. Normal flow direction. Aorta: Visualized portions are normal Inferior Vena Cava: Visualized portions are normal Free Fluid: No ascites or pleural effusion IMPRESSION: Normal right upper quadrant ultrasound. Signed by: Sage Encarnacion DO on 07/01/2020 8:46 PM Dictated By: SAGE ENCARNACION DO 45 Transcribed By: DALIA on 07/01/202045 COPY TO: MALACHI DICK MD Fluoroscopic procedure less than one hour [id number] 17:48:00 Test Item Value Reference Range Interpretation Comments IM GRANULOCYTES % (test code = IM 1.1 0.0-1.0 GRANULOCYTES %) [facility] neutrophil [id number] 17:48:00 Test Item Value Reference Range Interpretation Comments Neutrophils # (Auto) (test code = 9.3 2.1-6.9 751-8) [facility] lymphocytes count (number/volume) 2020-07-01 17:48:00 Test Item Value Reference Range Interpretation Comments Lymphocytes # (Auto) (test code = 1.5 1.0-3.2 83691-1) [facility] monocytes automated count (number/volume)2020-07-01 17:48:00 Test Item Value Reference Range Interpretation Comments Monocytes # (Auto) (test code = 742-7) 0.5 0.2-0.8 [facility] CampusAutom[facility] blood eosinophil [id number] 17:48:00 Test Item Value Reference Range Interpretation Comments Eosinophils # (Auto) (test code = 0.0 0.0-0.4 711-2) [facility]Autom[facility] blood basophil count (count/volume) 2020-07-01 17:48:00 Test Item Value Reference Range Interpretation Comments Basophils # (Auto) (test code = 704-7) 0.1 0.0-0.1 [facility] CampusFluoroscopic procedure less than one hour [id number] 17:48:00 Test Item Value Reference Range Interpretation Comments Absolute Immature Granulocyte (auto 0.13 0-0.1 (test code = Absolute Immature Granulocyte (auto) [facility] sodium measurement (moles/volume)2020-07-01 17:48:00 Test Item Value Reference Range Interpretation Comments Sodium Level (test code = 2951-2) 142 136-145 [facility] plasma potassium measurement (moles/volume)2020-07-01 17:48:00 Test Item Value Reference Range Interpretation Comments Potassium Level (test code = 2823-3) 3.6 3.5-5.1 [facility]ere[facility] or plasma chloride measurement (moles/volume)2020-07-01 17:48:00 Test Item Value Reference Range Interpretation Comments Chloride Level (test code = 2075-0) 106 98-107 [facility]ererum or plasma carbon dioxide, total measurement (moles/volume)2020-07-01 17:48:00 Test Item Value Reference Range Interpretation Comments Carbon Dioxide Level (test code = 25 22-29 2027-9) [facility]ererum or plasma anion [id number] 17:48:00 Test Item Value Reference Range Interpretation Comments Anion Gap (test code = 78204-4) 14.6 8-16 [facility]ere[facility] or plasma urea nitrogen measurement (mass/volume)2020-07-01 17:48:00 Test Item Value Reference Range Interpretation Comments Blood Urea Nitrogen (test code = 09-24 3094-0) [facility]ererum or plasma creatinine measurement (mass/volume)2020-07-01 17:48:00 Test Item Value Reference Range Interpretation Comments Creatinine (test code = 2160-0) 0.80 0.57-1.11 [facility]ererum or plasma urea nitrogen/creatinine mass [id number] 17:48:00 Test Item Value Reference Range Interpretation Comments BUN/Creatinine Ratio (test code = 15 08-24 3097-3) [facility] CampusEstimated glomerular filtration rate (GFR) snndfwcyzaaep0003-17-57 17:48:00 Test Item Value Reference Range Interpretation Comments Estimat Glomerular > 60 See_Comment [Automat ed message] The Filtration Rate (test system which generated code = 699795112) this resul t transmitted reference range : 60-. The reference r sagar was not used to int erpret this result as normal/abnormal . [facility] CampusGlucose [id number] 17:48:00 Test Item Value Reference Range Interpretation Comments Glucose Level (test code = QMW8235) 96 74-118 [facility]ererum or plasma calcium measurement (mass/volume)2020-07-01 17:48:00 Test Item Value Reference Range Interpretation Comments Calcium Level (test code = 94492-1) 9.7 8.4-10.2 [facility]ererum or plasma total bilirubin measurement (mass/volume)2020-07-01 17:48:00 Test Item Value Reference Range Interpretation Comments Total Bilirubin (test code = 1975-2) 0.7 0.2-1.2 [facility] CampusFluoroscopic procedure less than one hour [id number] 17:48:00 Test Item Value Reference Range Interpretation Comments Aspartate Amino Transf (AST/SGOT) (test 10 5-34 code = Aspartate Amino Transf (AST/SGOT)) [facility]ererum or plasma alanine aminotransferase measurement (enzymatic activity/volume)2020-07-01 17:48:00 Test Item Value Reference Range Interpretation Comments Alanine Aminotransferase (ALT/SGPT) 11 0-55 (test code = 1742-6) [facility]ererum or plasma protein measurement (mass/volume)2020-07-01 17:48:00 Test Item Value Reference Range Interpretation Comments Total Protein (test code = 2885-2) 8.1 6.5-8.1 [facility]ererum or plasma albumin measurement (mass/volume)2020-07-01 17:48:00 Test Item Value Reference Range Interpretation Comments Albumin (test code = 1751-7) 4.4 3.5-5.0 [facility] CampusPlasma globulin measurement (mass/volume) 2020-07-01 17:48:00 Test Item Value Reference Range Interpretation Comments Globulin (test code = 59912-9) 3.7 2.3-3.5 [facility]ererum or plasma albumin/globulin mass ratio 2020-07-01 17:48:00 Test Item Value Reference Range Interpretation Comments Albumin/Globulin Ratio (test code = 1.2 0.8-2.0 1759-0) [facility]ererum or plasma alkaline phosphatase measurement (enzymatic activity/volume)2020-07-01 17:48:00 Test Item Value Reference Range Interpretation Comments Alkaline Phosphatase (test code = 66 40-150 6768-6) [facility]ererum or plasma amylase measurement (enzymatic activity/volume)2020-07-01 17:48:00 Test Item Value Reference Range Interpretation Comments Amylase Level (test code = 1798-8) 25 25-125 [facility]ererum or plasma lipase measurement (enzymatic activity/volume)2020-07-01 17:48:00 Test Item Value Reference Range Interpretation Comments Lipase (test code = 3040-3) 15 8-78 [facility]Blood leukocytes automated count (number/volume)2020-07-01 17:48:00 Test Item Value Reference Range Interpretation Comments White Blood Count (test code = 6690-2) 11.52 4.8-10.8 [facility]Blood erythrocytes automated count (number/volume)2020-07-01 17:48:00 Test Item Value Reference Range Interpretation Comments Red Blood Count (test code = 789-8) 4.46 3.6-5.1 [facility]Blood hemoglobin measurement (moles/volume) 2020-07-01 17:48:00 Test Item Value Reference Range Interpretation Comments Hemoglobin (test code = 73642-0) 13.7 12.0-16.0 [facility] CampusAutomated blood hematocrit (volume fraction) 2020-07-01 17:48:00 Test Item Value Reference Range Interpretation Comments Hematocrit (test code = 4544-3) 40.6 34.2-44.1 [facility] CampusAutomated erythrocyte mean corpuscular volume 2020-07-01 17:48:00 Test Item Value Reference Range Interpretation Comments Mean Corpuscular Volume (test code = 91.0 81-99 787-2) [facility] CampusAutomated erythrocyte mean corpuscular hemoglobin (mass per erythrocyte)2020-07-01 17:48:00 Test Item Value Reference Range Interpretation Comments Mean Corpuscular Hemoglobin (test code 30.7 28-32 = 785-6) [facility] CampusAutomated erythrocyte mean corpuscular hemoglobin concentration measurement (mass/volume)2020-07-01 17:48:00 Test Item Value Reference Range Interpretation Comments Mean Corpuscular Hemoglobin Concent 33.7 31-35 (test code = 786-4) [facility] CampusRDW FwpAm-Xhz5397-90-02 17:48:00 Test Item Value Reference Range Interpretation Comments Red Cell Distribution Width (test code 12.6 11.7-14.4 = 54105-9) [facility] CampusAutomated blood platelet count (count/volume) 2020-07-01 17:48:00 Test Item Value Reference Range Interpretation Comments Platelet Count (test code = 777-3) 318 140-360 [facility] CampusAutomated blood segmented neutrophil count as percentage of total tkmnreuywc6028-12-43 17:48:00 Test Item Value Reference Range Interpretation Comments Neutrophils (%) (Auto) (test code = 80.8 38.7-80.0 36396-6) [facility] CampusAutomated blood lymphocyte count as percentage ot total wiuwsyurek3792-53-37 17:48:00 Test Item Value Reference Range Interpretation Comments Lymphocytes (%) (Auto) (test code = 13.2 18.0-39.1 736-9) [facility] CampusAutomated blood monocyte count as percentage of total wdgxqrcgap2797-29-17 17:48:00 Test Item Value Reference Range Interpretation Comments Monocytes (%) (Auto) (test code = 4.2 4.4-11.3 5905-5) [facility] CampusAutomated blood eosinophil count as percentage of total yfhotijpdk5404-16-92 17:48:00 Test Item Value Reference Range Interpretation Comments Eosinophils (%) (Auto) (test code = 0.3 0.0-6.0 713-8) [facility] CampusAutomated blood basophil count as percentage of total ncgwuhwvvm5833-74-59 17:48:00 Test Item Value Reference Range Interpretation Comments Basophils (%) (Auto) (test code = 0.4 0.0-1.0 706-2) [facility] CampusUrine color byhafqmtvqceq8609-15-83 17:22:00 Test Item Value Reference Range Interpretation Comments Urine Color (test code = 5778-6) YELLOW YELLOW [facility] CampusUrine bpndjin3982-46-88 17:22:00 Test Item Value Reference Range Interpretation Comments Urine Clarity (test code = 00774-7) CLOUDY CLEAR [facility] Centerpecific gravity of Urine by Test strip 2020-07-01 17:22:00 Test Item Value Reference Range Interpretation Comments Urine Specific [place] (test code = >=1.030 1.010-1.025 5811-5) [facility] pH measurement by automated test strip 2020-07-01 17:22:00 Test Item Value Reference Range Interpretation Comments Urine pH (test code = 85000-4) 5.5 5-7 [facility] CampusU[facility] leukocyte esterase detection by automated test yrudm5149-60-44 17:22:00 Test Item Value Reference Range Interpretation Comments Urine Leukocyte Esterase (test code NEGATIVE NEGATIVE = 28415-2) [facility] CampusUrine nitrite detection by automated test [id number] 17:22:00 Test Item Value Reference Range Interpretation Comments Urine Nitrite (test code = 95589-2) NEGATIVE NEGATIVE [facility] protein detection by automated test gcyjo5940-79-51 17:22:00 Test Item Value Reference Range Interpretation Comments Urine Protein (test code = 27180-1) TRACE NEGATIVE [facility] CampusUrine glucose detection by automated test [id number] 17:22:00 Test Item Value Reference Range Interpretation Comments Urine Glucose (UA) (test code = NEGATIVE NEGATIVE 54822-2) [facility] CampusUrine ketones detection by automated test [id number] 17:22:00 Test Item Value Reference Range Interpretation Comments Urine Ketones (test code = 33352-2) TRACE NEGATIVE [facility] CampusUrine urobilinogen measurement by test strip (mass/volume)2020-07-01 17:22:00 Test Item Value Reference Range Interpretation Comments Urine Urobilinogen (test code = 0.2 0.2-1 86844-2) [facility] CampusUrine total bilirubin pytbrtblr8881-32-07 17:22:00 Test Item Value Reference Range Interpretation Comments Urine Bilirubin (test code = 1977-8) 1+ NEGATIVE [facility] CampusUrine erythrocytes teagzpoej3930-19-85 17:22:00 Test Item Value Reference Range Interpretation Comments Urine Blood (test code = 40892-4) 3+ NEGATIVE [facility] CampusAutomated urine sediment leukocyte count by microscopy (number/high power field)2020-07-01 17:22:00 Test Item Value Reference Range Interpretation Comments Urine WBC (test code = 5821-4) 21-50 0-5 [facility] CampusErythrocytes detection in urine sediment by light ucmqphdczw3503-90-28 17:22:00 Test Item Value Reference Range Interpretation Comments Urine RBC (test code = 36756-6) 21-50 0-5 [facility] CampusBacteria detection in urine sediment by light iqrgslmudu2440-66-55 17:22:00 Test Item Value Reference Range Interpretation Comments Urine Bacteria (test code = 26862-5) MANY NONE [facility] CampusEpithelial cells detection in urine sediment by light ytcltcehgx5968-26-13 17:22:00 Test Item Value Reference Range Interpretation Comments Urine Epithelial Cells (test code = MANY NONE 44651-4) [facility] CampusTransitional cells detection in urine sediment by light qnzieixvdx8571-95-99 17:22:00 Test Item Value Reference Range Interpretation Comments Urine Transitional Epithelial Cells FEW NONE (test code = 8249-5) [facility] CampusMucus detection in urine sediment by light cvgdztdvua9642-47-94 17:22:00 Test Item Value Reference Range Interpretation Comments Urine Mucus (test code = 8247-9) MANY RARE [facility] CampusUrine human chorionic gonadotropin (hCG) ecgfsqpuv0727-06-23 17:22:00 Test Item Value Reference Range Interpretation Comments Urine Test (test code = NEGATIVE NEGATIVE 6-3) [facility] CampusBASIC METABOLIC [id number] 13:07:00 Test Item Value Reference Range Interpretation Comments SODIUM (test code = 144 mmol/L 135-148 N NA) POTASSIUM (test code 3.7 mmol/L 3.5-5.1 N = K) CHLORIDE (test code = 106 mmol/L 101-109 N CL) CARBON DIOXIDE (test 26.4 mmol/L 21-32 N code = CO2) ANION GAP (test code 15 mmol/L 10-20 N = GAP) GLUCOSE (test code = 94 mg/dL 74-106 N GLU) BLOOD UREA NITROGEN 9 mg/dL 3-21 N (test code = BUN) GLOMERULAR FILTRATION > 60 mL/min See_Comment Estima kim GFR by RATE (test code = using Kuldeep fied MDRD GFR) formula.Chronic kidney disease is defined as eith er kidney damageor GFR <60 mL/min/1.73 m2 for >3 months. [Automated mess age] The system [employer] generated this result transmitted ref erence range: >=60. Th e reference range was not used to int erpret this result as normal/abnormal . CREATININE (test code 0.84 mg/dL 0.55-1.3 N = CREAT) BUN/CREATININE RATIO 10.7 10-20 N (test code = BUN/CREA) CALCIUM (test code = 8.4 mg/dL 8.4-10.2 N CA) HEPATIC FUNCTION [id number] 13:07:00 Test Item Value Reference Range Interpretation Comments TOTAL PROTEIN (test 6.8 g/dL 6.5-8.4 N code = PROT) ALBUMIN (test code = 3.6 g/dL 3.4-4.8 N ALB) GLOBULIN (test code = 3.2 G/DL 1-10 N GLOB) ALBUMIN/GLOBULIN RATIO 1.1 RATIO 0.75-1.50 N (test code = A/G) BILIRUBIN TOTAL (test 0.30 mg/dL 0.0-1.0 N code = BILT) BILIRUBIN DIRECT (test 0.10 mg/dL 0.0-0.30 N code = BILD) SGOT/AST (test code = 8 U/L 6-32 N AST) SGPT/ALT (test code = 15 U/L 12-78 N Note: Change in ALT) REFERENCE RANGE due to new reagent method. ALKALINE PHOSPHATASE 64 U/L 38-126 N TOTAL (test code = ALKP) [id number] 13:07:00 Test Item Value Reference Range Interpretation Comments LIPASE (test code = LIP) 159 U/L 128-270 N HCG SERUM [id number] 13:07:00 Test Item Value Reference Range Interpretation Comments HCG SERUM QUAL (test NEGATIVE NEGATIVE This HC GQL test is NOT code = HCGQL) applicable for MALE patients.Check with nurse about probable order error.If Tumor Marker Test needed, nu rse should order test "HCG TU"(Test #[id number])---- - URINALYSIS [id number] 13:03:00 Test Item Value Reference Range Interpretation Comments UA COLOR (test code = YELLOW YELLOW COLU) UA APPEARANCE (test code clear CLEAR = APPU) UA GLUCOSE DIPSTICK (test norm mg/dL NEGATIVE code = DGLUU) UA BILIRUBIN DIPSTICK NEGATIVE mg/dL NEGATIVE (test code = BILU) UA KETONE DIPSTICK (test neg mg/dL NEGATIVE code = KETU) UA SPECIFIC GRAVITY (test 1.025 1.001-1.035 code = SGU) UA BLOOD DIPSTICK (test neg Joseph/uL NEGATIVE code = KAYLA) UA PH DIPSTICK (test code 5.0 5.0-8.0 = MICHAEL) UA PROTEIN DIPSTICK (test neg mg/dL Neg-15 code = PROU) UA UROBILINIOGEN DIPSTICK 1 mg/dL 0.0-0.2 A (test code = URO) UA NITRITE DIPSTICK (test NEGATIVE NEGATIVE code = AURE) UA LEUKOCYTE ESTERASE 25 Calin/uL (Trace) uL NEGATIVE A DIPSTICK (test code = LEUU) UA WBC (test code = WBCU) 0-5 per HPF 0-5 UA RBC (test code = RBCU) 0-3 per HPF 0-5 UA EPITHELIAL CELLS (test Moderate (5-10/hpf) Few code = EPIU) per HPF UA BACTERIA (test code = FEW per HPF NONE BACU) Urine Source? Clean CatchURINALYSIS [id number] 13:02:00 Test Item Value Reference Range Interpretation Comments UA COLOR (test code = YELLOW YELLOW COLU) UA APPEARANCE (test code clear CLEAR = APPU) UA GLUCOSE DIPSTICK (test norm mg/dL NEGATIVE code = DGLUU) UA BILIRUBIN DIPSTICK NEGATIVE mg/dL NEGATIVE (test code = BILU) UA KETONE DIPSTICK (test neg mg/dL NEGATIVE code = KETU) UA SPECIFIC GRAVITY (test 1.025 1.001-1.035 code = SGU) UA BLOOD DIPSTICK (test neg Joseph/uL NEGATIVE code = KAYLA) UA PH DIPSTICK (test code 5.0 5.0-8.0 = MICHAEL) UA PROTEIN DIPSTICK (test neg mg/dL Neg-15 code = PROU) UA UROBILINIOGEN DIPSTICK 1 mg/dL 0.0-0.2 A (test code = URO) UA NITRITE DIPSTICK (test NEGATIVE NEGATIVE code = AURE) UA LEUKOCYTE ESTERASE 25 Calin/uL (Trace) uL NEGATIVE A DIPSTICK (test code = LEUU) UA WBC (test code = WBCU) 0-5 per HPF 0-5 UA RBC (test code = RBCU) 0-3 per HPF 0-5 UA EPITHELIAL CELLS (test per HPF Few code = EPIU) UA BACTERIA (test code = per HPF NONE BACU) Urine Source? Clean CatchBASIC METABOLIC [id number] 12:57:00 Test Item Value Reference Range Interpretation Comments SODIUM (test code = 144 mmol/L 135-148 N NA) POTASSIUM (test code 3.7 mmol/L 3.5-5.1 N = K) CHLORIDE (test code = 106 mmol/L 101-109 N CL) CARBON DIOXIDE (test 26.4 mmol/L 21-32 N code = CO2) ANION GAP (test code 15 mmol/L 10-20 N = GAP) GLUCOSE (test code = 94 mg/dL 74-106 N GLU) BLOOD UREA NITROGEN 9 mg/dL 3-21 N (test code = BUN) GLOMERULAR FILTRATION > 60 mL/min See_Comment Estima kim GFR by RATE (test code = using Kuldeep fied MDRD GFR) formula.Chronic kidney disease is defined as eith er kidney damageor GFR <60 mL/min/1.73 m2 for >3 months. [Automated mess age] The system [employer] generated this result transmitted ref erence range: >=60. Th e reference range was not used to int erpret this result as normal/abnormal . CREATININE (test code 0.84 mg/dL 0.55-1.3 N = CREAT) BUN/CREATININE RATIO 10.7 10-20 N (test code = BUN/CREA) CALCIUM (test code = 8.4 mg/dL 8.4-10.2 N CA) HEPATIC FUNCTION [id number] 12:57:00 Test Item Value Reference Range Interpretation Comments TOTAL PROTEIN (test code = PROT) gram/dL 6.4-8.2 ALBUMIN (test code = ALB) g/dL 3.4-5.0 GLOBULIN (test code = GLOB) g/dL 2.7-4.2 ALBUMIN/GLOBULIN RATIO (test code = 0.75-1.50 A/G) BILIRUBIN TOTAL (test code = BILT) mg/dL 0.2-1.2 BILIRUBIN DIRECT (test code = BILD) mg/dL 0.0-0.20 SGOT/AST (test code = AST) IUnit/L 15-37 SGPT/ALT (test code = ALT) U/L 10-69 ALKALINE PHOSPHATASE TOTAL (test IUnit/L 45-117 code = ALKP) [id number] 12:57:00 Test Item Value Reference Range Interpretation Comments LIPASE (test code = LIP) Unit/L 144-286 HCG SERUM [id number] 12:57:00 Test Item Value Reference Range Interpretation Comments HCG SERUM QUAL (test code = HCGQL) NEGATIVE BASIC METABOLIC [id number] 12:57:00 Test Item Value Reference Range Interpretation Comments SODIUM (test code = 144 mmol/L 135-148 N NA) POTASSIUM (test code 3.7 mmol/L 3.5-5.1 N = K) CHLORIDE (test code = 106 mmol/L 101-109 N CL) CARBON DIOXIDE (test 26.4 mmol/L 21-32 N code = CO2) ANION GAP (test code 15 mmol/L 10-20 N = GAP) GLUCOSE (test code = 94 mg/dL 74-106 N GLU) BLOOD UREA NITROGEN 9 mg/dL 3-21 N (test code = BUN) GLOMERULAR FILTRATION > 60 mL/min See_Comment Estima kim GFR by RATE (test code = using Kuldeep fied MDRD GFR) formula.Chronic kidney disease is defined as eith er kidney damageor GFR <60 mL/min/1.73 m2 for >3 months. [Automated mess age] The system [employer] generated this result transmitted ref erence range: >=60. Th e reference range was not used to int erpret this result as normal/abnormal . CREATININE (test code 0.84 mg/dL 0.55-1.3 N = CREAT) BUN/CREATININE RATIO 10.7 10-20 N (test code = BUN/CREA) CALCIUM (test code = 8.4 mg/dL 8.4-10.2 N CA) HEPATIC FUNCTION [id number] 12:57:00 Test Item Value Reference Range Interpretation Comments TOTAL PROTEIN (test code = PROT) gram/dL 6.4-8.2 ALBUMIN (test code = ALB) g/dL 3.4-5.0 GLOBULIN (test code = GLOB) g/dL 2.7-4.2 ALBUMIN/GLOBULIN RATIO (test code = 0.75-1.50 A/G) BILIRUBIN TOTAL (test code = BILT) mg/dL 0.2-1.2 BILIRUBIN DIRECT (test code = BILD) mg/dL 0.0-0.20 SGOT/AST (test code = AST) IUnit/L 15-37 SGPT/ALT (test code = ALT) U/L 10-69 ALKALINE PHOSPHATASE TOTAL (test IUnit/L 45-117 code = ALKP) [id number] 12:57:00 Test Item Value Reference Range Interpretation Comments LIPASE (test code = LIP) Unit/L 144-286 HCG SERUM [id number] 12:57:00 Test Item Value Reference Range Interpretation Comments HCG SERUM QUAL (test NEGATIVE NEGATIVE This HC GQL test is NOT code = HCGQL) applicable for MALE patients.Check with nurse about probable order error.If Tumor Marker Test needed, nu rse should order test "HCG TU"(Test #[id number])---- - CBC W/O [id number] 12:54:00 Test Item Value Reference Range Interpretation Comments WHITE BLOOD CELL (test code = 6.3 K/mm3 4.5-12.5 N WBC) RED BLOOD CELL (test code = 3.96 mill/mm3 3.7-5.2 N RBC) HEMOGLOBIN (test code = HGB) 12.2 gram/dL 11.5-15.5 N HEMATOCRIT (test code = HCT) 36.0 % 36.0-46.0 N MEAN CELL VOLUME (test code = 90.9 fL 80-98 N MCV) MEAN CELL HGB (test code = MCH) 30.8 picogram 27.0-33.0 N MEAN CELL HGB CONCETRATION 33.9 gram/dL 33.0-36.0 N (test code = MCHC) RED CELL DISTRIBUTION WIDTH 12.8 % 11.6-16.2 N (test code = RDW) RED CELL DISTRIBUTION WIDTH SD 42.6 fL 37.0-51.0 N (test code = RDW-SD) PLATELET COUNT (test code = 253 K/mm3 150-450 N PLT) MEAN PLATELET VOLUME (test code 10.0 fL 6.7-11.0 N = MPV)
[2022-04-14] MEDS ORDERED: ONDANSETRON 4 MG/2 ML VIAL ONE (14:22)
[2022-04-14] MEDS ORDERED: NA CHLORIDE 0.9% 1,000 ML ONE (14:22)
[2022-04-14 15:03] LABS: Absolute Lymphocytes (CBC) 1.5 K/uL (0.7-4.9); Hematocrit 39.2 % (36.0-45.0); Lymphocytes % 22.3 % (15.3-44.8); MCV 85.2 fL (80-100); MPV 8.8 fL (7.6-11.3)
[2022-04-14 15:05] LABS: Potassium 3.4 mmol/L (3.5-5.1)
[2022-04-14 15:27] LABS: SARS-COV-2 RT PCR NEGATIVE (NEGATIVE)
--- NOTE | 2022-04-14 16:03 | RAD REPORT ---
EXAM DESCRIPTION: US - Transvaginal OB - 04/14/2022 3:41 pm CLINICAL HISTORY: VAGINAL BLEEDING COMPARISON: No comparisons TECHNIQUE: Sonographic grayscale and color flow images of the pelvis, obtained through a transvagina l approach. FINDINGS: No intrauterine is identified. No gestational sac or pole are identified. Thickened and slightly heterogeneous endometrium near the fundus, up to 1.8 centimeter in thickness, without vascular components to suggest retained products of conception. No other suspicious endometri al lesion. Uterus is retroverted. Right ovary measures 3.4 x 1.7 x 1.8 centimeter. It contains numerous small cysts/follicles. Left ovary measures 3.6 x 3.2 x 2.5 centimeter. It contains a dominant anechoic cyst measuring 3.5 x 1.7 x 1.8 centimeters, containing a small thin-walled 8 millimeter daughter cyst. No free fluid. IMPRESSION: 1. No intrauterine could be identified. 2. Thickened and slightly heterogeneous endometrium without vascular components to suggest retained p roducts of conception. This is a nonspecific finding, and correlation with serum beta - HCG levels is recommended. 3. Dominant left ovarian cyst up to 3.5 centimeter in size, likely physiologic.
[2022-04-14 16:14] LABS: Urine Blood 3+ (Negative); Urine Glucose Negative (Negative); Urine Protein 2+ (Negative); Urine Specific Gravity >=1.030 (1.005-1.030); Urine pH 5.5 (5.0-7.0)
--- NOTE | 2022-04-14 16:25 | EDPHYS ---
Physician Documentation [facility] Name: Christina Kemp Age: 22 yrs Sex: Female : 2000 Arrival Date: 04/14/2022 Time: 13:56 Bed 12 Private MD: ED Physician Medhat Bain HPI: 04/14 14:15 This 22 yrs old Female presents to ER via Ambulatory with complaints of jh7 Vomiting, Cough, intermittent vaginal bleeding since january. 14:15 The patient presents to the emergency department with nausea, vomiting. Associated jh7 signs and symptoms: Pertinent positives: cough. 22-year-old female presents with nausea vomiting, cough, and congestion for 1 week. Reports that her child has similar symptoms. Also reports that she had a miscarriage in January and has had intermittent vaginal bleeding since then. Wanted to see if she could get it checked out today.. 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 - Social history:: Smoking status: Patient denies any tobacco usage or history of. ROS: 14:15 Constitutional: Negative for fever, chills, and weight loss, Eyes: Negative for injury, jh7 pain, redness, and discharge, Neck: Negative for injury, pain, and swelling, Cardiovascular: Negative for chest pain, palpitations, and edema, Abdomen/GI: Negative for abdominal pain, nausea, vomiting, diarrhea, and constipation, Back: Negative for injury and pain, MS/Extremity: Negative for injury and deformity, Skin: Negative for injury, rash, and discoloration, Neuro: Negative for headache, weakness, numbness, tingling, and seizure. 14:15 ENT: Positive for nasal discharge. 14:15 Respiratory: Positive for cough, Negative for shortness of breath, wheezing. 14:15 : Positive for vaginal bleeding, Negative for vaginal discharge. 14:15 All other systems are negative. Exam: 14:15 Constitutional: This is a well developed, well nourished patient who is awake, alert, jh7 and in no acute distress. Head/Face: Normocephalic, atraumatic. Eyes: Pupils equal round and reactive to light, extra-ocular motions intact. Lids and lashes normal. Conjunctiva and sclera are non-icteric and not injected. Cornea within normal limits. Periorbital areas with no swelling, redness, or edema. Neck: Trachea midline, no thyromegaly or masses palpated, and no cervical lymphadenopathy. Supple, full range of motion without nuchal rigidity, or vertebral point tenderness. No Meningismus. Cardiovascular: Regular rate and rhythm with a normal S1 and S2. No gallops, murmurs, or rubs. Normal PMI, no JVD. No pulse deficits. Respiratory: Lungs have equal breath sounds bilaterally, clear to auscultation and percussion. No rales, rhonchi or wheezes noted. No increased work of breathing, no retractions or nasal flaring. Abdomen/GI: Soft, non-tender, with normal bowel sounds. No distension or tympany. No guarding or rebound. No evidence of tenderness throughout. Skin: Warm, dry with normal turgor. Normal color with no rashes, no lesions, and no evidence of cellulitis. MS/ Extremity: Pulses equal, no cyanosis. Neurovascular intact. Full, normal range of motion. Neuro: Awake and alert, GCS 15, oriented to person, place, time, and situation. Motor strength 5/5 in all extremities. Sensory grossly intact. Normal gait. 14:15 ENT: Nose: nasal drainage, and is seen coming from both nares, that is clear, Posterior pharynx: post nasal drainage. Vital Signs: 14:07 BP 110 / 72; Pulse 108; Resp 20; Temp 98.8; Pulse Ox 98% ; Weight 63.5 kg; Height 5 ft. [facility] 5 in. (165.10 cm); 15:15 BP 106 / 68; Pulse 101; Resp 18; Pulse Ox 99% on R/A; eh3 16:15 BP 113 / 72; Pulse 98; Resp 18; Pulse Ox 98% on R/A; eh3 14:07 Body Mass Index 23.30 (63.50 kg, 165.10 cm) 5 MDM: 14:01 Patient medically screened. [facility] 16:25 Differential diagnosis: Nonspecific abd pain, gastritis, viral gastroenteritis, 7 gastroenteritis. Data reviewed: vital signs, nurses notes, lab test result(s), radiologic studies, ultrasound. I considered the following discharge prescriptions or medication management in the emergency department Medications were administered in the Emergency Department. See MAR. Counseling: I had a detailed discussion with the patient and/or guardian regarding: the historical points, exam findings, and any diagnostic results supporting the discharge/admit diagnosis, the need for outpatient follow up, an OB/Gyne specialist, to return to the emergency department if symptoms worsen or persist or if there are any questions or concerns that arise at home. Response to treatment: the patient's symptoms have markedly improved after treatment. Special discussion: Informed the patient of ultrasound results. Informed her that if she truly had retained products from miscarriage in January she would be showing much more symptoms and would likely have been in septic shock a long time ago. Informed her that it was interpreted as a nonspecific finding but that she should follow-up with her CNA INSTRUCTOR for further treatment regarding the bleeding. If she develops severe bleeding, high fever, or abdominal pain she should return to the ER for further eval.. 04/14 14:04 Order name: COVID-19/FLU A+B/RSV [facility] 04/14 14:04 Order name: Basic Metabolic Panel [facility] 04/14 14:04 Order name: CBC with Diff [facility] 04/14 15:05 Order name: Basic Metabolic Panel; Complete Time: 15:34 [facility] 04/14 15:05 Order name: CBC with Automated Diff; Complete Time: 15:34 [facility] 04/14 15:27 Order name: COVID-19/FLU A+B/RSV; Complete Time: 15:34 [facility] 04/14 14:04 Order name: US Transvaginal Ob [facility] 04/14 14:04 Order name: IV Saline Lock; Complete Time: 14:40 [facility] 04/14 14:04 Order name: Labs collected and sent; Complete Time: 14:40 [facility] 04/14 16:04 Order name: US; Complete Time: 16:05 [facility] 04/14 16:14 Order name: Urine Dipstick-Ancillary; Complete Time: 16:22 [facility] 04/14 16:15 Order name: Urine --Ancillary (enter results) 04/14 14:04 Order name: NPO; Complete Time: 14:13 [facility] 04/14 14:04 Order name: Urine Dipstick-Ancillary (obtain specimen); Complete Time: 16:23 [facility] 04/14 14:04 Order name: Urine Test (obtain specimen); Complete Time: 16:23 [facility] Administered Medications: 14:20 Drug: NS 0.9% 1000 ml Route: IV; Rate: 1 bolus; Site: left antecubital; 3 16:41 Follow up: IV Status: Completed infusion; IV Intake: 900ml [facility] 14:20 Drug: Zofran (Ondansetron) 4 mg Route: IVP; Site: left antecubital; 3 15:30 Follow up: Response: Nausea is decreased [facility] Disposition: 18:56 Co-signature as Attending Physician, Medhat Bain MD I reviewed the patient's care rn provided by the Advanced Practice Provider and agree with the diagnosis and treatment plan. Disposition Summary: 04/14/22 16:24 Discharge Ordered Location: Home [facility] Problem: new [facility] Symptoms: are unchanged [facility] Condition: Stable [facility] Diagnosis - Acute upper respiratory infection, unspecified jh7 - Nausea with vomiting, unspecified jh7 - Abnormal uterine and vaginal bleeding, unspecified [facility] Followup: [facility] - With: Private Physician - When: 2 - 3 days - Reason: Recheck today's complaints Discharge Instructions: - Discharge Summary Sheet 7 - Nausea, Adult jh7 - Upper Respiratory Infection, Adult [facility] Forms: - Medication Reconciliation Form [facility] - Thank You Letter [facility] Prescriptions: - Bromfed DM 2-30-10 mg/5 mL Oral syrup - take 10 milliliter by ORAL route every 4 hours As needed; 240 milliliter; [facility] Refills: 0, Product Selection Permitted - ondansetron 4 mg Oral - take 4 milligrams by SUBLINGUAL route every 8 hours; 15 tablet; Refills: 0, [facility] Product Selection Permitted Signatures: Dispatcher [employer] Medhat Wang MD MD rn Rees, Jessica, RN RN 5 Sayra Stephen RN RN 3 Teresa Deleon FNP SOLVENT PROCESS EXTRACTOR OPERATOR [facility]
--- NOTE | 2022-04-14 16:25 | ER ---
Nurse's Notes [facility] Name: Christina Kemp Age: 22 yrs Sex: Female : 2000 Arrival Date: 04/14/2022 Time: 13:56 Bed 12 Private MD: Diagnosis: Acute upper respiratory infection, unspecified;Nausea with vomiting, unspecified;Abnormal uterine and vaginal bleeding, unspecified Presentation: 04/14 14:07 Chief complaint: Patient states: cough, congestion, fever x1 week. Coronavirus screen: [facility] Vaccine status: Patient reports being unvaccinated. Client denies travel out of the [place] in the last 14 days. Ebola Screen: Patient negative for fever greater than or equal to 101.5 degrees Fahrenheit, and additional compatible Ebola Virus Disease symptoms Patient denies exposure to infectious person. Patient denies travel to an Ebola-affected area in the 21 days before illness onset. Initial Sepsis Screen: Does the patient meet any 2 criteria? No. Patient's initial sepsis screen is negative. Does the patient have a suspected source of infection? No. Patient's initial sepsis screen is negative. Risk Assessment: Do you want to hurt yourself or someone else? Patient reports no desire to harm self or others. 14:07 Method Of Arrival: Ambulatory [facility] 14:07 Acuity: KALEB 3 [facility] 14:13 Onset of symptoms was April 06, 2022. 3 Triage Assessment: 14:08 General: Appears uncomfortable, slender, Behavior is calm, cooperative, appropriate for [facility] age. Pain: Denies pain. GI: Reports nausea, vomiting. 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 - Social history:: Smoking status: Patient denies any tobacco usage or history of. Screenin:15 [facility] ED Fall Risk Assessment (Adult) Score/Fall Risk Level 0 - 2 = Low Risk. Abuse 3 screen: Denies threats or abuse. Denies injuries from another. Nutritional screening: Has had N/V for 3 or more days. Tuberculosis screening: No symptoms or risk factors identified. Assessment: 14:15 General: Appears in no apparent distress. uncomfortable, Behavior is calm, cooperative, eh3 appropriate for age. Pain: Denies pain. Neuro: Level of Consciousness is awake, alert, obeys commands, Oriented to person, place, time, situation. Cardiovascular: Capillary refill < 3 seconds Patient's skin is warm and dry. Respiratory: Airway is patent Respiratory effort is even, unlabored, Respiratory pattern is regular, symmetrical. Respiratory: Reports cough that is productive. GI: Abdomen is round non-distended, Reports intolerance of fluids, intolerance of food, nausea, vomiting. : No signs and/or symptoms were reported regarding the genitourinary system. EENT: Reports nasal congestion nasal discharge. Derm: No signs and/or symptoms reported regarding the dermatologic system. Skin is pink, warm \T\ dry. Musculoskeletal: No signs and/or symptoms reported regarding the musculoskeletal system. Circulation, motion, and sensation intact. Range of motion: intact in all extremities. 15:15 Reassessment: Patient appears in no apparent distress at this time. Patient and/or 3 family updated on plan of care and expected duration. Pain level reassessed. Patient is alert, oriented x 3, equal unlabored respirations, skin warm/dry/pink. 16:15 Reassessment: Patient appears in no apparent distress at this time. Patient and/or 3 family updated on plan of care and expected duration. Pain level reassessed. Patient is alert, oriented x 3, equal unlabored respirations, skin warm/dry/pink. Vital Signs: 14:07 BP 110 / 72; Pulse 108; Resp 20; Temp 98.8; Pulse Ox 98% ; Weight 63.5 kg; Height 5 ft. [facility] 5 in. (165.10 cm); 15:15 BP 106 / 68; Pulse 101; Resp 18; Pulse Ox 99% on R/A; eh3 16:15 BP 113 / 72; Pulse 98; Resp 18; Pulse Ox 98% on R/A; eh3 14:07 Body Mass Index 23.30 (63.50 kg, 165.10 cm) [facility] ED Course: 13:56 Patient arrived in ED. as 14:01 Teresa Deleon FNP [facility] 14:01 Medhat Bain MD is Attending Physician. [facility] 14:08 Triage completed. 5 14:08 Arm band placed on right wrist. jh5 14:13 Sayra Stephen, RN is Primary Nurse. eh3 14:15 Patient has correct armband on for positive identification. Bed in low position. Call 3 light in reach. Side rails up X2. risk and insurance manager on. Pulse ox on. Door closed. Noise minimized. Lights dimmed. Warm blanket given. 14:20 Inserted saline lock: 20 gauge in left antecubital area, using aseptic technique. Blood eh3 collected. 14:40 COVID-19/FLU A+B/RSV Sent. eh3 16:42 No provider procedures requiring assistance completed. IV discontinued, intact, eh3 bleeding controlled, No redness/swelling at site. Pressure dressing applied. Administered Medications: 14:20 Drug: NS 0.9% 1000 ml Route: IV; Rate: 1 bolus; Site: left antecubital; eh3 16:41 Follow up: IV Status: Completed infusion; IV Intake: 900ml eh3 14:20 Drug: Zofran (Ondansetron) 4 mg Route: IVP; Site: left antecubital; eh3 15:30 Follow up: Response: Nausea is decreased eh3 Medication: 16:43 VIS not applicable for this client. eh3 Intake: 16:41 IV: 900ml; Total: 900ml. eh3 Outcome: 16:24 Discharge ordered by . [facility] 16:43 Discharged to home ambulatory. eh3 16:43 Condition: stable 16:43 Discharge instructions given to patient, Instructed on discharge instructions, follow up and referral plans. medication usage, Demonstrated understanding of instructions, follow-up care, medications, Prescriptions given X 2. 16:47 Patient left the ED. 3 Signatures: Sendy Haney Jessica RN RN 5 Sayra Stephen, RN RN 3 Teresa Deleon FNP RECYCLING CREW SUPERVISOR 7 Corrections: (The following items were deleted from the chart) 14:45 14:15 GI: Abdomen is round non-distended, Reports intolerance of fluids, intolerance of eh3 food, nausea, vomiting, eh3 14:45 14:15 Nutritional screening: No deficits noted. eh3 eh3
[2022-04-14 16:53] LABS: Urine Specific Gravity/Preg >1.030 (1.005-1.030)
[2022-04-14 17:17] VITALS: BP 110/72; TEMP 98.8; O2SAT 98
== END 2022-04-14 16:47 | disposition home or self-care (01) ==
LOC: ER 13:52
DX: J06.9 Acute upper respiratory infection, unspecified (principal); N93.9 Abnormal uterine and vaginal bleeding, unspecified; Z20.822 Contact with and (suspected) exposure to COVID-19
CPT/HCPCS: 96361; 85025; 80048; 36415; 81025; 81003; 0241U; 76817; 96374; 99284; J7030; J2405

== ENCOUNTER → 2023-04-02 | Emergency (ER) | payer OTHER ==
[~2023-04-02] MED LIST: CEFTRIAXONE 1000 MG/VIAL ONE; NA CHLORIDE 0.9% 1,000 ML ONE; ONDANSETRON 4 MG/2 ML VIAL ONE; POTASSIUM 25 MEQ EFFERV TAB ONE
--- OUTSIDE RECORDS SUMMARY | 2023-04-02 20:44 | XMS REPORT | Continuity of Care Document ---
Author Name Unknown Address [address] [facility] [address] [place] [address] [facility] thconnect Address [address] [facility] [address] [place] [address] Support Name Relationship Address Phone ANTHONY PRETTY Other Unknown Unavailable JAMES HERNANDEZMONY Sister Unknown [address] [place] [address] Unavailable 2 Personal Relationship [address] [place] [address] Unavailable VILLEGAS, ALEXIA STR Unknown Unavailable NONE, GIVEN Personal Relationship UNKNOWN UNKNONW, UNKN [phone] GERMAINE ARAIZA Personal Relationship [address] [place] [address] LAYTON PRETTY GP [address] [place] [address] MICAELA KILGORE Emergency Contact [address] [place] [address] Unavailable SHIN HOLT Personal Relationship [address] [place] [address] TRIP HERNANDEZ Personal Relationship [address] [place] [address] JASIEL HOLT Personal Relationship [address] [place] [address] TRIP HERNANDEZ Personal Relationship [address] [place] [address] JOHNATHAN HERNANDEZ SI [address] [place] [address] JOHNATHAN HERNANDEZ SI [address] [place] [address] AARON HERNANDEZ SI [address] [facility] [address] [address] [place] [address] Care Team Providers Care Boiling Off Winder Name Role Phone NONE, NONE Primary Care Physician Unavailab TERESA Malik Attending Clinician Un available GC_AWC_Taben_J Attending Clinician Unavailable JUNO MANCINI Attending Clinician Unava ilALANA Christensen Attending Clinician Unavailable Hoang_Chucky Attending Clinician Unavailable Michael De Leon Attending Clinician Unavailable SUSAN WOODARD Attending Clinician Unavailable Teresa Campbell Attending Clinician + [phone] ANÍBAL AMADO Attending Clinician Unavaila ELMIRA Ennis Attending Clinician Denise vailable RILEY_CARSON_Guillermo_J Attending Clinician Unavailable Briseyda Benjamin Attending Clinician [phone] Shamir Haley V Attending Clinician Unavailab MALACHI Leahy Attending Clinician UnaTERESA Mendez Admitting Clinician Un available Physician, No Primary or Family Admitting Clinic chi Unavailable GC_AWC_Shannan_J Admitting Clinician Unavailable Hoang_N Admitting Clinician Unavailable GC_CARSON_Guillermo_Mika Admitting Clinician Unavailable Payers Payer Name Policy Type Policy Number Effective Date Expirati on Date Source [facility] MEDICAID STAR [id number] 2021 00:00:00 [place] [id number] [facility] (MEDICAID REPLACEMENT - HMO) [id number] [facility] (MEDICAID REPLACEMENT - HMO) [id number] [facility] 3 SHARE PROGRAM (HMO) [id number] 2021 00:00:00 [place] [id number] 2020 00:00:00 2021 00:00:00 Problems Condition Name Condition Details Condition Category Status Onset Date Resolution Date Last Treatment Date Treating Clinician Comments Source CONTRACTIO NS CONTRACTIO NS Active 06/11/2021 [facility] Diagnosis Active 12 00:00: 00 2021-06-11 23:04:00 Betzy Fox Abnormal glucose tolerance test Abnormal Glucose Tolerance Test Problem Active 2022-0 3-27 00:00: 00 [facility] BACK PAIN BACK PAIN Active 05/20/2021 [facility] Diagnosis Active 3-21 00:00: 00 2021-05-20 19:49:00 Betzy Fox Nausea and vomiting Nausea and Vomiting Problem Active 1-20 00:00: 00 [facility] Insufficie nt care Insufficie nt Care Problem Active 1-20 00:00: 00 [facility] 19WKS PREG/CRAMP ING, SPOTTING, VOMITNG 19WKS PREG/CRAMP ING, SPOTTING, VOMITNG Active 01/25/2021 [facility] Diagnosis Active 2020-03 1 00:00: 00 2021-01-25 23:18:00 Betzy Fox CHILD CHILD Active 09/14/2020 [facility] Diagnosis Active 7-16 00:00: 00 2021-06-02 09:19:00 Betzy Fox Cannabinoi d hyperemesi s syndrome Problem Active [facility] Gastritis Problem Active [facility] Itching (finding) Itching (finding) Active Problem 06/17/2021 [facility] Problem Active 2021-06-17 08:12:12 Memoseas Fox Migraine (disorder) Migraine (disorder) Active Problem 06/17/2021 [facility] Problem Active 2021-06-17 08:12:12 Betzy Fox Mild depression (disorder) Mild depression (disorder) Active Problem 06/17/2021 [facility] Problem Active 2021-06-17 08:12:12 Betzy Fox Nausea (finding) Nausea (finding) [facility] 2021-06-17 08:12:12 Memoseas Fox Paresthesi a of lower extremity (finding) Paresthesi a of lower extremity (finding) Active Problem 06/17/2021 [facility] Problem Active 2021-06-17 08:12:12 Betzy Fox Patient encounter status (finding) Patient encounter status (finding) Active Problem 06/17/2021 [facility] Problem Active 2021-06-17 08:12:12 Betzy Fox Screening status (finding) Screening status (finding) Active Problem 06/17/2021 [facility] Problem Active 2021-06-17 08:12:12 Memoseas Fox Severe depression (disorder) Severe depression (disorder) Active Problem 06/17/2021 [facility] Problem Active 2021-06-17 08:12:12 Betzy Fox Suicidal thoughts (finding) Suicidal thoughts (finding) Active Problem 06/17/2021 [facility] Problem Active 2021-06-17 08:12:12 Betzy Fox Vitamin D deficiency (disorder) Vitamin D deficiency (disorder) Active Problem 06/17/2021 [facility] Problem Active 2021-06-17 08:12:12 Betzy Fox OTH RELATED CONDITIONS , THIRD OTH RELATED CONDITIONS , THIRD Active [facility] Diagnosis Active 2021-06-11 23:04:00 Betzy Fox 39 WEEKS GESTATION OF 39 WEEKS GESTATION OF Active [facility] Diagnosis Active 2021-06-11 23:04:00 Betzy Fox History of - infectious disease (context-d ependent category) History of - infectious disease (context-d ependent category) Resolved Problem 06/17/2021 [facility] Problem Resolve d 2021-06-17 08:12:12 Betzy Fox Dizziness (finding) Dizziness (finding) Active Problem 06/17/2021 [facility] Problem Active 2021-06-17 08:12:12 Betzy Fox Patient currently (finding) Patient currently (finding) Resolved 09/08/2020 Problem 06/17/2021 [facility] Problem Resolve d 2020-0 7-10 00:00: 00 2021-06-17 08:12:12 2021-06-17 08:12:12 Betzy Fox History of Past Illness Condition Name Condition Details Condition Category Status Onset Date Resolution Date Last Treatment Date Treating Clinician Comments Source Other specified diseases and conditions complicati ng Other specified diseases and conditions complicati ng 05/20/2021 05/22/2021 [facility] Problem 05-20 17:00: 00 2021-05-22 23:03:24 2021-05-22 23:03:24 Betzy Fox 36 weeks gestation of 36 weeks gestation of 05/20/2021 05/22/2021 [facility] Problem 05-20 17:00: 00 2021-05-22 23:03:24 2021-05-22 23:03:24 Betzy Fox Unspecifie d infection of urinary tract in , third trimester Unspecifie d infection of urinary tract in , third trimester 05/20/2021 05/22/2021 [facility] 05-20 17:00: 00 2021-05-22 23:03:24 2021-05-22 23:03:24 Betzy Fox Allergies, Adverse Reactions, Alerts Allergy Name Allergy Type Status Severity Reaction(s) Onset Date Inactive Date Treating Clinician Comments Source No Known Drug Allergie s DA Active U 07-02 00:00: 00 [facility] No Known Food Allergie s DA Active U 07-02 00:00: 00 [facility] No Known Other Allergie s DA Active U 07-02 00:00: 00 [facility] No Known Contrast Allergie s DA Active U 07-02 00:00: 00 [facility] No Known Allergie s DA Active [facility] Social History Social Habit Start Date Stop Date Quantity Comments Source Social History 2017-09-04 20:19:46 2017-09-04 20:19:46 Johnny Fox Sex Assigned At 2000 00:00:00 2000 00:00:00 Female [facility] Smoking Status Start Date Stop Date Source Never Smoker [facility] Medications Ordered Medication Name Filled Medication Name Start Date Stop Date Current Medication? Ordering Clinician Indication Dosage Frequency Signature (SIG) Comments Components Source ibuprofen 600 mg oral tablet 414 19:50: 00 Yes 600 mg = 1 tab, PO, Q6Hnow, # 60 tab, 1 Refill(s), Pharmacy: [facility] #[id number], 165.1, cm, 06/11/21 22:33:00 CDT, Height, 75.455, kg, 06/11/21 22:33:00 CDT, Weight Betzy Fox Multivitami ns oral tablet 06-13 14:00: 00 No 1 tab, Route: PO, Drug Form: TAB, Dosing Weight 75.455, kg, Daily, Start date: 06/13/21 9:00:00 CDT, Duration: 30 day, Stop date: 07/12/21 9:00:00 CDT, 0 Betzy Fox Saline Flush 0.9% 06-13 02:00: 00 No Notes: (Same as: BD Posiflush) Betzy Fox M-M-R II subcutaneou s injection 06-12 15:00: 00 No Notes: (Same as: M-M-R II) (measles-m umps-rubel la virus vaccine 0.5 ml INJ VL) WASTE: F/P - Red; E -Red GIVE PRIOR TO DISCHARGE Betzy Fox Lactated Ringers (Bolus) IV 06-12 15:00: 00 No 1,000 mL, 1,000 ml/hr, Infuse Over: 1 hr, Route: IV, 1,000, Drug form: INJ, ONCALL, Dosing Weight 75.455 kg, Start date: 06/12/21 10:00:00 CDT, Duration: 1 doses or times, For OB hemorrhage per physician direction, 0 Betzy Fox oxytocin 06-12 15:00: 00 No Notes: (Same as: Pitocin) Hazardous Drug Group 3:Reproduc tive risk Hazardous Drug -- Refer to safe handling procedure PPE Matrix Betzy jose Fox misoprostol 06-12 15:00: 00 No Notes: (Same as:Cytotec ) Hazardous Drug Group 3:Reproduc tive risk Hazardous Drug -- Refer to safe handling procedure PPE Matrix Take with food Charlotteoseas jose Fox methylergon ovine 06-12 15:00: 00 No Notes: (Same as:Metherg ine) Hazardous Drug Group 3:Reproduc tive risk Hazardous Drug -- Refer to safe handling procedure PPE Matrix Betzy jose Fox atropine-di phenoxylate 0.025 mg-2.5 mg oral tablet 06-12 15:00: 00 No Notes: (Same As: Lomotil) MAX Adult dose = 8 tabs/day Betzy Fox carboprost 06-12 15:00: 00 No Notes: (Same As: Hemabate) Betzy Fox tranexamic acid + Sodium Chloride 0.9% IV 100 mL 06-12 15:00: 00 No Notes: (Same As: Cyklokapro n) Betzy Fox ibuprofen 06-12 15:00: 00 No Notes: (Same as: Motrin) "Do Not Crush" Take with food. Betzy Fox Lactated Ringers IV 1,000 mL 06-12 14:03: 00 No 1,000 mL, Rate: 100 ml/hr, Infuse over: 10 hr, Route: IV, Dosing Weight 75.455 kg, Total Volume: 1,000, see special instructio n for rate while completing infusion from recovery for the 20 Units of Oxytocin., Start date: 06/12/21 9:03:00 CDT, Duration:. .. Betzy Fox ondansetron 06-12 14:03: 00 No Notes: (Same as: Zofran) MEDICATION WASTE Product Size: 4 mg Product Wasted: ___ mg Betzy Fox docusate 06-12 14:03: 00 No Notes: (Same as: Colace) (Do Not Crush) Betzy Fox bisacodyl 06-12 14:03: 00 No Notes: (Same As: Dulcolax, Correctol) (Do Not Crush) "Do Not Crush" Betzy Fox lanolin topical 06-12 14:03: 00 No 1 appl, Route: TOP, PRN, Drug form: OINT, PRN Other -See Comment, Start date: 06/12/21 9:03:00 CDT, Duration: 30 day, Stop date: 07/12/21 9:02:00 CDT, 0 Betzy Fox Dermoplast Pain Relieving 20%-0.5% topical spray 06-12 14:03: 00 No Notes: (Same As: Dermoplast ) WASTE: Aerosol - Return to Pharmacy FOR EXTERNAL USE ONLY Betzy jose [place] oxytocin 30 units in NS 500 mL (Titrate) IV 30 unit 06-12 14:03: 00 No Notes: Hazardous Drug Group 3:Reproduc tive risk Hazardous Drug -- Refer to safe handling procedure PPE Matrix Charlotteoseas jose [place] Saline Flush 0.9% 06-12 14:03: 00 No Notes: (Same as: BD Posiflush) Betzy Vermaann acetaminoph en-hydrocod one 325 mg-5 mg oral tablet 06-12 14:03: 00 No Notes: (Same as: [place] 325/5) Do not exceed 4gm/day of acetaminop hen. Betzy jose Fox acetaminoph en-hydrocod one 325 mg-10 mg oral tablet 06-12 14:03: 00 No Notes: Do not exceed 4gm/day of acetaminop hen. (Same as: [place] 325/10) Betzy Fox PNV 06-12 04:40: 00 Yes PO, Daily, 0 Refill(s) Betzy jose Fox carboprost 06-12 04:00: 00 No Notes: (Same As: Hemabate) Betzy Fox tranexamic acid + Sodium Chloride 0.9% IV 100 mL 06-12 04:00: 00 No Notes: (Same As: Cyklokapro n) Betzy Fox ibuprofen 06-12 04:00: 00 No Notes: (Same as: Motrin) "Do Not Crush" Take with food. Betzy Fox Lactated Ringers (Bolus) IV 06-12 04:00: 00 No 1,000 mL, 1,000 ml/hr, Infuse Over: 1 hr, Route: IV, 1,000, Drug form: INJ, ONCALL, Dosing Weight 75.455 kg, Start date: 06/11/21 23:00:00 CDT, Duration: 1 doses or times, For OB hemorrhage per physician direction, 0 Betzy Fox oxytocin 06-12 04:00: 00 No Notes: (Same as: Pitocin) Hazardous Drug Group 3:Reproduc tive risk Hazardous Drug -- Refer to safe handling procedure PPE Matrix Betzy Fox misoprostol 06-12 04:00: 00 No Notes: (Same as:Cytotec ) Hazardous Drug Group 3:Reproduc tive risk Hazardous Drug -- Refer to safe handling procedure PPE Matrix Take with food Betzy Fox methylergon ovine 06-12 04:00: 00 No Notes: (Same as:Metherg ine) Hazardous Drug Group 3:Reproduc tive risk Hazardous Drug -- Refer to safe handling procedure PPE Matrix Betzy Fox atropine-di phenoxylate 0.025 mg-2.5 mg oral tablet 06-12 04:00: 00 No Notes: (Same As: Lomotil) MAX Adult dose = 8 tabs/day Betzy Fox Ropivacaine 0.2% + fentaNYL 2 mcg/ml Epidural CADD 200 mL 06-12 03:57: 00 No Notes: (Same as Naropin-Christensen blimaze) Betzy Fox ePHEDrine 06-12 03:57: 00 No Notes: (Same as: ePHEDrine Sulfate) Charlotteoseas jose Fox phenylephri ne 06-12 03:57: 00 No 0.1 mg, 1 mL, Route: IVP, Drug form: INJ, Q5Min, Dosing Weight 75.455, kg, PRN for symptomati c BP decrease, Start date: 06/11/21 22:57:00 CDT, Duration: 30 day, Stop date: 07/11/21 22:56:00 CDT, 0 Betzy Fox Lactated Ringers Injection IV 1,000 mL 06-12 03:53: 00 No 1,000 mL, Rate: 125 ml/hr, Infuse over: 8 hr, Route: IV, Dosing Weight 75.455 kg, Total Volume: 1,000, see special instructio ns when infusing 20 Units of Oxytocin., Start date: 06/11/21 22:53:00 CDT, Duration: 30 day, Stop date: 07/11/21 22:52:00 CDT,... Betzy Fox oxytocin 30 units in NS 500 mL (Bolus) IV 10.02 unit 06-12 03:53: 00 No Notes: Hazardous Drug Group 3:Reproduc tive risk Hazardous Drug -- Refer to safe handling procedure PPE Matrix Betzy Fox oxytocin 30 units in NS 500 mL IV 19.98 unit 06-12 03:53: 00 No Notes: Hazardous Drug Group 3:Reproduc tive risk Hazardous Drug -- Refer to safe handling procedure PPE Matrix Betzy Fox butorphanol 06-12 03:53: 00 No Notes: (Same As: Stadol) Betzy Fox acetaminoph en-hydrocod one 325 mg-5 mg oral tablet 06-12 03:53: 00 No Notes: (Same as: [place] 325/5) Do not exceed 4gm/day of acetaminop hen. Betzy Vermaann acetaminoph en-hydrocod one 325 mg-10 mg oral tablet 06-12 03:53: 00 No Notes: Do not exceed 4gm/day of acetaminop hen. (Same as: [place] 325/10) Betzy Vermaann ondansetron 06-12 03:53: 00 No Notes: (Same as: Zofran) MEDICATION WASTE Product Size: 4 mg Product Wasted: ___ mg Betzy garcia Ruddy lidocaine 1% injectable solution 06-12 03:53: 00 No Notes: (Same as: Xylocaine) Betzy jose Fox lidocaine 1% 06-12 03:53: 00 No Notes: (Same as: Xylocaine) Betzy garcia [place] terbutaline 06-12 03:53: 00 No Notes: DO NOT USE IN [employer] [facility] (Same As: Brethine) [place]ose[place] jose Fox Dermoplast Pain Relieving 20%-0.5% topical spray 06-12 03:53: 00 No Notes: (Same As: Dermoplast ) WASTE: Aerosol - Return to Pharmacy FOR EXTERNAL USE ONLY Betzy jose Fox oxytocin 30 units in NS 500 mL (Titrate) IV 30 unit 06-12 03:53: 00 No Notes: Hazardous Drug Group 3:Reproduc tive risk Hazardous Drug -- Refer to safe handling procedure PPE Matrix Betzy Fox Cephalexin 500 MG Oral Capsule [Keflex] 05-21 02:55: 00 Yes 500 mg = 1 cap, PO, BID, X 7 day, # 14 cap, 0 Refill(s), Pharmacy: [facility] #[id number], 162.56, cm, 05/20/21 19:41:00 CDT, Height, 71.818, kg, 05/20/21 19:41:00 CDT, Weight Betzy Fox Acetaminoph en 325 MG / Hydrocodone Bitartrate 5 MG Oral Tablet 05-21 01:03: 00 No Notes: (Same as: [place] 325/5) Do not exceed 4gm/day of acetaminop hen. Betzy Fox Metoclopram ld 10 MG Oral Tablet [Reglan] 2020-03 05:37: 00 Yes 10 mg = 1 tab, PO, QID, X 10 day, # 40 tab, 0 Refill(s) Betzy Fox Ondansetron 4 MG Disintegrat ing Tablet 2020-03 05:37: 00 Yes 4 mg = 1 tab, PO, TID, PRN Nausea / Vomiting, Dissolve tab under tongue, X 3 day, # 10 tab, 0 Refill(s) Betzy Fox Cephalexin 500 MG Oral Capsule [Keflex] 2020-03 05:37: 00 Yes 500 mg = 1 cap, PO, BID, X 7 day, # 14 cap, 0 Refill(s) Betzy Fox Rocephin + Sodium Chloride 0.9% IV 100 mL 2020-03 05:08: 00 No Notes: (Same As: Rocephin). Use with 100 mL NS and infuse over 30 min MEDICATION WASTE Product Size: 1000 mg Product Wasted: ___ mg Betzy Fox Benadryl 2020-03 04:52: 00 No 12.5 mg, Route: IVP, ONCE, Dosing Weight 65.199, kg, Priority: STAT, Start date: 01/25/21 22:52:00 [employer], Stop date: 01/25/21 22:52:00 [employer] Betzy Fox Saline Flush 0.9% 2020-03 03:24: 00 No Notes: Same as: BD Posiflush Sterile Betzy Fox Sodium Chloride 0.9% (Bolus) IV 2020-03 03:24: 00 No 1,000 mL, 1000 ml/hr, Infuse Over: 1 hr, Route: IV, 1,000, Drug form: INJ, ONCE, Priority: STAT, Dosing Weight 60.966 kg, Start date: 01/25/21 21:24:00 [employer], Stop date: 01/25/21 21:24:00 [employer], 0 Betzy Fox Metoclopram ld 2020-03 03:24: 00 No Notes: (Same as: Reglan) Betzy Fox NS (Bolus) IV 2020-03 03:24: 00 No 1,000 mL, 1,000 ml/hr, Infuse Over: 1 hr, Route: IV, 1,000, Drug form: INJ, ONCE, Priority: STAT, Dosing Weight 60.966 kg, Start date: 01/25/21 21:24:00 [employer], Stop date: 01/25/21 21:24:00 [employer], 0 Betzy Fox Vitamin D3 50,000 intl units oral capsule 11-10 21:09: 00 Yes 50,000 IntlUnit = 1 cap, PO, qWeek, # 12 cap, 0 Refill(s), Pharmacy: [facility] [id number] Betzy Fox sertraline 25 mg oral tablet 11-10 21:09: 00 Yes 25 mg = 1 tab, PO, Daily, # 30 tab, 1 Refill(s), Pharmacy: [facility] [id number] Betzy Fox Vitamin D3 50,000 intl units oral capsule 11-10 21:09: 00 Yes 50,000 IntlUnit = 1 cap, PO, qWeek, # 12 cap, 0 Refill(s), Pharmacy: [facility] [id number] Betzy Fox sertraline 25 mg oral tablet 11-10 21:09: 00 Yes 25 mg = 1 tab, PO, Daily, # 30 tab, 1 Refill(s), Pharmacy: [facility] [id number] Betzy Fox Vitamin D3 50,000 intl units oral capsule 11-10 21:09: 00 Yes 50,000 IntlUnit = 1 cap, PO, qWeek, # 12 cap, 0 Refill(s), Pharmacy: [facility] [id number] Betzy Fox sertraline 25 mg oral tablet 11-10 21:09: 00 Yes 25 mg = 1 tab, PO, Daily, # 30 tab, 1 Refill(s), Pharmacy: [facility] [id number] Betzy Fox levocetiriz ine 5 mg oral tablet 09-18 18:55: 00 Yes 5 mg = 1 tab, PO, QPM, PRN itchinig, # 30 tab, 0 Refill(s), Pharmacy: [facility] [id number] Betzy Fox SUMAtriptan 25 mg oral tablet 09-18 18:55: 00 No 25 mg = 1 tab, PO, Daily, PRN for migraine headache, may repeat dose in 2 hours if needed, X 18 day, # 18 tab, 0 Refill(s), Pharmacy: [facility] [id number] [facility]oc[facility] 5 mg oral tablet 09-18 18:55: 00 Yes 5 mg = 1 tab, PO, QPM, PRN itchinig, # 30 tab, 0 Refill(s), Pharmacy: [facility] [id number] [facility] SUMAtriptan 25 mg oral tablet 09-18 18:55: 00 No 25 mg = 1 tab, PO, Daily, PRN for migraine headache, may repeat dose in 2 hours if needed, X 18 day, # 18 tab, 0 Refill(s), Pharmacy: [facility] [id number] [facility] levocetiriz ine 5 mg oral tablet 09-18 18:55: 00 Yes 5 mg = 1 tab, PO, QPM, PRN itchinig, # 30 tab, 0 Refill(s), Pharmacy: [facility] [id number] Betzy Fox SUMAtriptan 25 mg oral tablet 09-18 18:55: 00 No 25 mg = 1 tab, PO, Daily, PRN for migraine headache, may repeat dose in 2 hours if needed, X 18 day, # 18 tab, 0 Refill(s), Pharmacy: [facility] [id number] Betzy Fox azithromyci n 500 mg tablet TK 2 TS PO ONCE FOR 1 DOSE azithromyci n 500 mg tablet TK 2 TS PO ONCE FOR 1 DOSE No azithromyc in 500 mg tablet TK 2 TS PO ONCE FOR 1 DOSE [facility] Biotene Dry Mouth Oral Rinse mouthwash Take 30 mL twice a day by mucous route for 30 days. Biotene Dry Mouth Oral Rinse mouthwash Take 30 mL twice a day by mucous route for 30 days. No 30mL BID Biotene Dry Mouth Oral Rinse mouthwash Take 30 mL twice a day by mucous route for 30 days. [facility] cholecalcif marcie (vitamin D3) 1,250 mcg (50,000 unit) capsule TK 1 C PO Q WK FOR 12 WKS cholecalcif marcie (vitamin D3) 1,250 mcg (50,000 unit) capsule TK 1 C PO Q WK FOR 12 WKS No cholecalci ferol (vitamin D3) 1,250 mcg (50,000 unit) capsule TK 1 C PO Q WK FOR 12 WKS [facility] clindamycin 2 % vaginal cream I 1 APL VAGINALLY QD FOR 7 DAYS clindamycin 2 % vaginal cream I 1 APL VAGINALLY QD FOR 7 DAYS No clindamyci n 2 % vaginal cream I 1 APL VAGINALLY QD FOR 7 DAYS [facility] clobetasol 0.05 % topical cream APPLY A THIN LAYER TO THE AFFECTED AREA(S) BY TOPICAL ROUTE 2 TIMES PER DAY clobetasol 0.05 % topical cream APPLY A THIN LAYER TO THE AFFECTED AREA(S) BY TOPICAL ROUTE 2 TIMES PER DAY No clobetasol 0.05 % topical cream APPLY A THIN LAYER TO THE AFFECTED AREA(S) BY TOPICAL ROUTE 2 TIMES PER DAY [facility] doxycycline hyclate 100 mg tablet TK 1 T PO BID FOR 7 DAYS doxycycline hyclate 100 mg tablet TK 1 T PO BID FOR 7 DAYS No doxycyclin e hyclate 100 mg tablet TK 1 T PO BID FOR 7 DAYS [facility] doxycycline monohydrate 100 mg tablet 1 p.o BID doxycycline monohydrate 100 mg tablet 1 p.o BID No doxycyclin e monohydrat e 100 mg tablet 1 p.o BID [facility] fluconazole 150 mg tablet Take 1 tablet every day by oral route. fluconazole 150 mg tablet Take 1 tablet every day by oral route. No 1 Q1D fluconazol e 150 mg tablet Take 1 tablet every day by oral route. [facility] Kristalose 20 gram oral packet MIX AND DRINK 1 PACKET BY MOUTH EVERY DAY Kristalose 20 gram oral packet MIX AND DRINK 1 PACKET BY MOUTH EVERY DAY No Kristalose 20 gram oral packet MIX AND DRINK 1 PACKET BY MOUTH EVERY DAY [facility] lorazepam 1 mg tablet TAKE ONE (1) TABLET(S) BY MOUTH 1 HOUR PRIOR TO SURGERY WITH A SMALL SIP OF WATER. lorazepam 1 mg tablet TAKE ONE (1) TABLET(S) BY MOUTH 1 HOUR PRIOR TO SURGERY WITH A SMALL SIP OF WATER. No lorazepam 1 mg tablet TAKE ONE (1) TABLET(S) BY MOUTH 1 HOUR PRIOR TO SURGERY WITH A SMALL SIP OF WATER. [facility] metronidazo le 500 mg tablet TAKE 1 TABLET BY MOUTH TWICE DAILY FOR 7 DAYS metronidazo le 500 mg tablet TAKE 1 TABLET BY MOUTH TWICE DAILY FOR 7 DAYS No metronidaz ole 500 mg tablet TAKE 1 TABLET BY MOUTH TWICE DAILY FOR 7 DAYS [facility] nystatin 100,000 unit/gram topical cream APPLY TO THE AFFECTED AREA(S) BY TOPICAL ROUTE 2 TIMES PER DAY nystatin 100,000 unit/gram topical cream APPLY TO THE AFFECTED AREA(S) BY TOPICAL ROUTE 2 TIMES PER DAY No nystatin 100,000 unit/gram topical cream APPLY TO THE AFFECTED AREA(S) BY TOPICAL ROUTE 2 TIMES PER DAY [facility] nystatin 100,000 unit/gram topical ointment JAVIER EXT AA BID nystatin 100,000 unit/gram topical ointment JAVIER EXT AA BID No nystatin 100,000 unit/gram topical ointment JAVIER EXT AA BID [facility] Off Deep Sefl 25 % topical spray Off Deep Self 25 % topical spray No Off Deep Self 25 % topical spray [facility] ondansetron 4 mg disintegrat ing tablet Place 1 tablet 3 times a day by translingua l route for 15 days. ondansetron 4 mg disintegrat ing tablet Place 1 tablet 3 times a day by translingua l route for 15 days. No ondansetro n 4 mg disintegra ting tablet Place 1 tablet 3 times a day by translingu al route for 15 days. [facility] pantoprazol e 20 mg tablet,nandini yed release Take 2 tablets every day by oral route for 30 days. pantoprazol e 20 mg tablet,nandini yed release Take 2 tablets every day by oral route for 30 days. No pantoprazo le 20 mg tablet,del ayed release Take 2 tablets every day by oral route for 30 days. [facility] pantoprazol e 40 mg tablet,nandini yed release Take 1 tablet every day by oral route at bedtime for 60 days. pantoprazol e 40 mg tablet,nandini yed release Take 1 tablet every day by oral route at bedtime for 60 days. No pantoprazo le 40 mg tablet,del ayed release Take 1 tablet every day by oral route at bedtime for 60 days. [facility] Previfem 0.25 mg-35 mcg tablet Take 1 tablet every day by oral route for 28 days. Previfem 0.25 mg-35 mcg tablet Take 1 tablet every day by oral route for 28 days. No Previfem 0.25 mg-35 mcg tablet Take 1 tablet every day by oral route for 28 days. [facility] scopolamine 1 mg over 3 days transdermal patch Apply 1 patch every 72 hours by transdermal route as directed. scopolamine 1 mg over 3 days transdermal patch Apply 1 patch every 72 hours by transdermal route as directed. No scopolamin e 1 mg over 3 days transderma l patch Apply 1 patch every 72 hours by transderma l route as directed. [facility] sertraline 25 mg tablet sertraline 25 mg tablet No sertraline 25 mg tablet [facility] terconazole 0.4 % vaginal cream Insert 1 applicatorf ul every day by vaginal route for 7 days. terconazole 0.4 % vaginal cream Insert 1 applicatorf ul every day by vaginal route for 7 days. No 1applic ator(s) ful Q1D terconazol e 0.4 % vaginal cream Insert 1 applicator ful every day by vaginal route for 7 days. [facility] triamcinolo ne acetonide 0.1 % topical cream APPLY THIN LAYER TOPICALLY TO THE AFFECTED AREA TWICE DAILY triamcinolo ne acetonide 0.1 % topical cream APPLY THIN LAYER TOPICALLY TO THE AFFECTED AREA TWICE DAILY No triamcinol one acetonide 0.1 % topical cream APPLY THIN LAYER TOPICALLY TO THE AFFECTED AREA TWICE DAILY [facility] Vitafol Ultra 29 mg iron-1 mg-200 mg capsule TAKE 1 CAPSULE BY MOUTH DAILY Vitafol Ultra 29 mg iron-1 mg-200 mg capsule TAKE 1 CAPSULE BY MOUTH DAILY No Vitafol Ultra 29 mg iron-1 mg-200 mg capsule TAKE 1 CAPSULE BY MOUTH DAILY [facility] Zofran 4 mg tablet Take 1 tablet 3 times a day by oral route for 15 days. Zofran 4 mg tablet Take 1 tablet 3 times a day by oral route for 15 days. No 1 TID Zofran 4 mg tablet Take 1 tablet 3 times a day by oral route for 15 days. [facility] azithromyci n 500 mg tablet TK 2 TS PO ONCE FOR 1 DOSE azithromyci n 500 mg tablet TK 2 TS PO ONCE FOR 1 DOSE No azithromyc in 500 mg tablet TK 2 TS PO ONCE FOR 1 DOSE [facility] Biotene Dry Mouth Oral Rinse mouthwash Take 30 mL twice a day by mucous route for 30 days. Biotene Dry Mouth Oral Rinse mouthwash Take 30 mL twice a day by mucous route for 30 days. No 30mL BID Biotene Dry Mouth Oral Rinse mouthwash Take 30 mL twice a day by mucous route for 30 days. [facility] cholecalcif marcie (vitamin D3) 1,250 mcg (50,000 unit) capsule TK 1 C PO Q WK FOR 12 WKS cholecalcif marcie (vitamin D3) 1,250 mcg (50,000 unit) capsule TK 1 C PO Q WK FOR 12 WKS No cholecalci ferol (vitamin D3) 1,250 mcg (50,000 unit) capsule TK 1 C PO Q WK FOR 12 WKS [facility] clindamycin 2 % vaginal cream I 1 APL VAGINALLY QD FOR 7 DAYS clindamycin 2 % vaginal cream I 1 APL VAGINALLY QD FOR 7 DAYS No clindamyci n 2 % vaginal cream I 1 APL VAGINALLY QD FOR 7 DAYS [facility] clobetasol 0.05 % topical cream APPLY A THIN LAYER TO THE AFFECTED AREA(S) BY TOPICAL ROUTE 2 TIMES PER DAY clobetasol 0.05 % topical cream APPLY A THIN LAYER TO THE AFFECTED AREA(S) BY TOPICAL ROUTE 2 TIMES PER DAY No clobetasol 0.05 % topical cream APPLY A THIN LAYER TO THE AFFECTED AREA(S) BY TOPICAL ROUTE 2 TIMES PER DAY [facility] doxycycline hyclate 100 mg tablet TK 1 T PO BID FOR 7 DAYS doxycycline hyclate 100 mg tablet TK 1 T PO BID FOR 7 DAYS No doxycyclin e hyclate 100 mg tablet TK 1 T PO BID FOR 7 DAYS [facility] doxycycline monohydrate 100 mg tablet 1 p.o BID doxycycline monohydrate 100 mg tablet 1 p.o BID No doxycyclin e monohydrat e 100 mg tablet 1 p.o BID [facility] fluconazole 150 mg tablet Take 1 tablet every day by oral route. fluconazole 150 mg tablet Take 1 tablet every day by oral route. No 1 Q1D fluconazol e 150 mg tablet Take 1 tablet every day by oral route. [facility] Kristalose 20 gram oral packet MIX AND DRINK 1 PACKET BY MOUTH EVERY DAY Kristalose 20 gram oral packet MIX AND DRINK 1 PACKET BY MOUTH EVERY DAY No Kristalose 20 gram oral packet MIX AND DRINK 1 PACKET BY MOUTH EVERY DAY [facility] lorazepam 1 mg tablet TAKE ONE (1) TABLET(S) BY MOUTH 1 HOUR PRIOR TO SURGERY WITH A SMALL SIP OF WATER. lorazepam 1 mg tablet TAKE ONE (1) TABLET(S) BY MOUTH 1 HOUR PRIOR TO SURGERY WITH A SMALL SIP OF WATER. No lorazepam 1 mg tablet TAKE ONE (1) TABLET(S) BY MOUTH 1 HOUR PRIOR TO SURGERY WITH A SMALL SIP OF WATER. [facility] metronidazo le 500 mg tablet TAKE 1 TABLET BY MOUTH TWICE DAILY FOR 7 DAYS metronidazo le 500 mg tablet TAKE 1 TABLET BY MOUTH TWICE DAILY FOR 7 DAYS No metronidaz ole 500 mg tablet TAKE 1 TABLET BY MOUTH TWICE DAILY FOR 7 DAYS [facility] nystatin 100,000 unit/gram topical cream APPLY TO THE AFFECTED AREA(S) BY TOPICAL ROUTE 2 TIMES PER DAY nystatin 100,000 unit/gram topical cream APPLY TO THE AFFECTED AREA(S) BY TOPICAL ROUTE 2 TIMES PER DAY No nystatin 100,000 unit/gram topical cream APPLY TO THE AFFECTED AREA(S) BY TOPICAL ROUTE 2 TIMES PER DAY [facility] nystatin 100,000 unit/gram topical ointment JAVIER EXT AA BID nystatin 100,000 unit/gram topical ointment JAVIER EXT AA BID No nystatin 100,000 unit/gram topical ointment JAVIER EXT AA BID [facility] Off Deep Self 25 % topical spray Off Deep Self 25 % topical spray No Off Deep Self 25 % topical spray [facility] ondansetron 4 mg disintegrat ing tablet Place 1 tablet 3 times a day by translingua l route for 15 days. ondansetron 4 mg disintegrat ing tablet Place 1 tablet 3 times a day by translingua l route for 15 days. No ondansetro n 4 mg disintegra ting tablet Place 1 tablet 3 times a day by translingu al route for 15 days. [facility] pantoprazol e 20 mg tablet,nandini yed release Take 2 tablets every day by oral route for 30 days. pantoprazol e 20 mg tablet,nandini yed release Take 2 tablets every day by oral route for 30 days. No pantoprazo le 20 mg tablet,del ayed release Take 2 tablets every day by oral route for 30 days. [facility] pantoprazol e 40 mg tablet,nandini yed release Take 1 tablet every day by oral route at bedtime for 60 days. pantoprazol e 40 mg tablet,nandini yed release Take 1 tablet every day by oral route at bedtime for 60 days. No pantoprazo le 40 mg tablet,del ayed release Take 1 tablet every day by oral route at bedtime for 60 days. [facility] Previfem 0.25 mg-35 mcg tablet Take 1 tablet every day by oral route for 28 days. Previfem 0.25 mg-35 mcg tablet Take 1 tablet every day by oral route for 28 days. No Previfem 0.25 mg-35 mcg tablet Take 1 tablet every day by oral route for 28 days. [facility] scopolamine 1 mg over 3 days transdermal patch Apply 1 patch every 72 hours by transdermal route as directed. scopolamine 1 mg over 3 days transdermal patch Apply 1 patch every 72 hours by transdermal route as directed. No scopolamin e 1 mg over 3 days transderma l patch Apply 1 patch every 72 hours by transderma l route as directed. [facility] sertraline 25 mg tablet sertraline 25 mg tablet No sertraline 25 mg tablet [facility] terconazole 0.4 % vaginal cream Insert 1 applicatorf ul every day by vaginal route for 7 days. terconazole 0.4 % vaginal cream Insert 1 applicatorf ul every day by vaginal route for 7 days. No 1applic ator(s) ful Q1D terconazol e 0.4 % vaginal cream Insert 1 applicator ful every day by vaginal route for 7 days. [facility] triamcinolo ne acetonide 0.1 % topical cream APPLY THIN LAYER TOPICALLY TO THE AFFECTED AREA TWICE DAILY triamcinolo ne acetonide 0.1 % topical cream APPLY THIN LAYER TOPICALLY TO THE AFFECTED AREA TWICE DAILY No triamcinol one acetonide 0.1 % topical cream APPLY THIN LAYER TOPICALLY TO THE AFFECTED AREA TWICE DAILY [facility] Vitafol Ultra 29 mg iron-1 mg-200 mg capsule TAKE 1 CAPSULE BY MOUTH DAILY Vitafol Ultra 29 mg iron-1 mg-200 mg capsule TAKE 1 CAPSULE BY MOUTH DAILY No Vitafol Ultra 29 mg iron-1 mg-200 mg capsule TAKE 1 CAPSULE BY MOUTH DAILY [facility] Zofran 4 mg tablet Take 1 tablet 3 times a day by oral route for 15 days. Zofran 4 mg tablet Take 1 tablet 3 times a day by oral route for 15 days. No 1 TID Zofran 4 mg tablet Take 1 tablet 3 times a day by oral route for 15 days. [facility] azithromyci n 500 mg tablet TK 2 TS PO ONCE FOR 1 DOSE azithromyci n 500 mg tablet TK 2 TS PO ONCE FOR 1 DOSE No azithromyc in 500 mg tablet TK 2 TS PO ONCE FOR 1 DOSE [facility] Biotene Dry Mouth Oral Rinse mouthwash Take 30 mL twice a day by mucous route for 30 days. Biotene Dry Mouth Oral Rinse mouthwash Take 30 mL twice a day by mucous route for 30 days. No 30mL BID Biotene Dry Mouth Oral Rinse mouthwash Take 30 mL twice a day by mucous route for 30 days. [facility] cholecalcif marcie (vitamin D3) 1,250 mcg (50,000 unit) capsule TK 1 C PO Q WK FOR 12 WKS cholecalcif marcie (vitamin D3) 1,250 mcg (50,000 unit) capsule TK 1 C PO Q WK FOR 12 WKS No cholecalci ferol (vitamin D3) 1,250 mcg (50,000 unit) capsule TK 1 C PO Q WK FOR 12 WKS [facility] clindamycin 2 % vaginal cream I 1 APL VAGINALLY QD FOR 7 DAYS clindamycin 2 % vaginal cream I 1 APL VAGINALLY QD FOR 7 DAYS No clindamyci n 2 % vaginal cream I 1 APL VAGINALLY QD FOR 7 DAYS [facility] clobetasol 0.05 % topical cream APPLY A THIN LAYER TO THE AFFECTED AREA(S) BY TOPICAL ROUTE 2 TIMES PER DAY clobetasol 0.05 % topical cream APPLY A THIN LAYER TO THE AFFECTED AREA(S) BY TOPICAL ROUTE 2 TIMES PER DAY No clobetasol 0.05 % topical cream APPLY A THIN LAYER TO THE AFFECTED AREA(S) BY TOPICAL ROUTE 2 TIMES PER DAY [facility] doxycycline hyclate 100 mg tablet TK 1 T PO BID FOR 7 DAYS doxycycline hyclate 100 mg tablet TK 1 T PO BID FOR 7 DAYS No doxycyclin e hyclate 100 mg tablet TK 1 T PO BID FOR 7 DAYS [facility] doxycycline monohydrate 100 mg tablet 1 p.o BID doxycycline monohydrate 100 mg tablet 1 p.o BID No doxycyclin e monohydrat e 100 mg tablet 1 p.o BID [facility] fluconazole 150 mg tablet Take 1 tablet every day by oral route. fluconazole 150 mg tablet Take 1 tablet every day by oral route. No 1 Q1D fluconazol e 150 mg tablet Take 1 tablet every day by oral route. [facility] Kristalose 20 gram oral packet MIX AND DRINK 1 PACKET BY MOUTH EVERY DAY Kristalose 20 gram oral packet MIX AND DRINK 1 PACKET BY MOUTH EVERY DAY No Kristalose 20 gram oral packet MIX AND DRINK 1 PACKET BY MOUTH EVERY DAY [facility] lorazepam 1 mg tablet TAKE ONE (1) TABLET(S) BY MOUTH 1 HOUR PRIOR TO SURGERY WITH A SMALL SIP OF WATER. lorazepam 1 mg tablet TAKE ONE (1) TABLET(S) BY MOUTH 1 HOUR PRIOR TO SURGERY WITH A SMALL SIP OF WATER. No lorazepam 1 mg tablet TAKE ONE (1) TABLET(S) BY MOUTH 1 HOUR PRIOR TO SURGERY WITH A SMALL SIP OF WATER. [facility] metronidazo le 500 mg tablet TAKE 1 TABLET BY MOUTH TWICE DAILY FOR 7 DAYS metronidazo le 500 mg tablet TAKE 1 TABLET BY MOUTH TWICE DAILY FOR 7 DAYS No metronidaz ole 500 mg tablet TAKE 1 TABLET BY MOUTH TWICE DAILY FOR 7 DAYS [facility] nystatin 100,000 unit/gram topical cream APPLY TO THE AFFECTED AREA(S) BY TOPICAL ROUTE 2 TIMES PER DAY nystatin 100,000 unit/gram topical cream APPLY TO THE AFFECTED AREA(S) BY TOPICAL ROUTE 2 TIMES PER DAY No nystatin 100,000 unit/gram topical cream APPLY TO THE AFFECTED AREA(S) BY TOPICAL ROUTE 2 TIMES PER DAY [facility] nystatin 100,000 unit/gram topical ointment JAVIER EXT AA BID nystatin 100,000 unit/gram topical ointment JAVIER EXT AA BID No nystatin 100,000 unit/gram topical ointment JAVIER EXT AA BID [facility] Off Deep Self 25 % topical spray Off Deep Self 25 % topical spray No Off Deep Self 25 % topical spray [facility] ondansetron 4 mg disintegrat ing tablet Place 1 tablet 3 times a day by translingua l route for 15 days. ondansetron 4 mg disintegrat ing tablet Place 1 tablet 3 times a day by translingua l route for 15 days. No ondansetro n 4 mg disintegra ting tablet Place 1 tablet 3 times a day by translingu al route for 15 days. [facility] pantoprazol e 20 mg tablet,nandini yed release Take 2 tablets every day by oral route for 30 days. pantoprazol e 20 mg tablet,nandini yed release Take 2 tablets every day by oral route for 30 days. No pantoprazo le 20 mg tablet,del ayed release Take 2 tablets every day by oral route for 30 days. [facility] pantoprazol e 40 mg tablet,nandini yed release Take 1 tablet every day by oral route at bedtime for 60 days. pantoprazol e 40 mg tablet,nandini yed release Take 1 tablet every day by oral route at bedtime for 60 days. No pantoprazo le 40 mg tablet,del ayed release Take 1 tablet every day by oral route at bedtime for 60 days. [facility] ParaGard T 380A 380 square mm intrauterin e device ParaGard T 380A 380 square mm intrauterin e device No ParaGard T 380A 380 square mm intrauteri ne device [facility] Previfem 0.25 mg-35 mcg tablet Take 1 tablet every day by oral route for 28 days. Previfem 0.25 mg-35 mcg tablet Take 1 tablet every day by oral route for 28 days. No Previfem 0.25 mg-35 mcg tablet Take 1 tablet every day by oral route for 28 days. [facility] scopolamine 1 mg over 3 days transdermal patch Apply 1 patch every 72 hours by transdermal route as directed. scopolamine 1 mg over 3 days transdermal patch Apply 1 patch every 72 hours by transdermal route as directed. No scopolamin e 1 mg over 3 days transderma l patch Apply 1 patch every 72 hours by transderma l route as directed. [facility] sertraline 25 mg tablet sertraline 25 mg tablet No sertraline 25 mg tablet [facility] terconazole 0.4 % vaginal cream Insert 1 applicatorf ul every day by vaginal route for 7 days. terconazole 0.4 % vaginal cream Insert 1 applicatorf ul every day by vaginal route for 7 days. No 1applic ator(s) ful Q1D terconazol e 0.4 % vaginal cream Insert 1 applicator ful every day by vaginal route for 7 days. [facility] triamcinolo ne acetonide 0.1 % topical cream APPLY THIN LAYER TOPICALLY TO THE AFFECTED AREA TWICE DAILY triamcinolo ne acetonide 0.1 % topical cream APPLY THIN LAYER TOPICALLY TO THE AFFECTED AREA TWICE DAILY No triamcinol one acetonide 0.1 % topical cream APPLY THIN LAYER TOPICALLY TO THE AFFECTED AREA TWICE DAILY [facility] Vitafol Ultra 29 mg iron-1 mg-200 mg capsule TAKE 1 CAPSULE BY MOUTH DAILY Vitafol Ultra 29 mg iron-1 mg-200 mg capsule TAKE 1 CAPSULE BY MOUTH DAILY No Vitafol Ultra 29 mg iron-1 mg-200 mg capsule TAKE 1 CAPSULE BY MOUTH DAILY [facility] Zofran 4 mg tablet Take 1 tablet 3 times a day by oral route for 15 days. Zofran 4 mg tablet Take 1 tablet 3 times a day by oral route for 15 days. No 1 TID Zofran 4 mg tablet Take 1 tablet 3 times a day by oral route for 15 days. [facility] azithromyci n 500 mg tablet TK 2 TS PO ONCE FOR 1 DOSE azithromyci n 500 mg tablet TK 2 TS PO ONCE FOR 1 DOSE No azithromyc in 500 mg tablet TK 2 TS PO ONCE FOR 1 DOSE [facility] Biotene Dry Mouth Oral Rinse mouthwash Take 30 mL twice a day by mucous route for 30 days. Biotene Dry Mouth Oral Rinse mouthwash Take 30 mL twice a day by mucous route for 30 days. No 30mL BID Biotene Dry Mouth Oral Rinse mouthwash Take 30 mL twice a day by mucous route for 30 days. [facility] cholecalcif marcie (vitamin D3) 1,250 mcg (50,000 unit) capsule TK 1 C PO Q WK FOR 12 WKS cholecalcif marcie (vitamin D3) 1,250 mcg (50,000 unit) capsule TK 1 C PO Q WK FOR 12 WKS No cholecalci ferol (vitamin D3) 1,250 mcg (50,000 unit) capsule TK 1 C PO Q WK FOR 12 WKS [facility] clindamycin 2 % vaginal cream I 1 APL VAGINALLY QD FOR 7 DAYS clindamycin 2 % vaginal cream I 1 APL VAGINALLY QD FOR 7 DAYS No clindamyci n 2 % vaginal cream I 1 APL VAGINALLY QD FOR 7 DAYS [facility] clobetasol 0.05 % topical cream APPLY A THIN LAYER TO THE AFFECTED AREA(S) BY TOPICAL ROUTE 2 TIMES PER DAY clobetasol 0.05 % topical cream APPLY A THIN LAYER TO THE AFFECTED AREA(S) BY TOPICAL ROUTE 2 TIMES PER DAY No clobetasol 0.05 % topical cream APPLY A THIN LAYER TO THE AFFECTED AREA(S) BY TOPICAL ROUTE 2 TIMES PER DAY [facility] doxycycline hyclate 100 mg tablet TK 1 T PO BID FOR 7 DAYS doxycycline hyclate 100 mg tablet TK 1 T PO BID FOR 7 DAYS No doxycyclin e hyclate 100 mg tablet TK 1 T PO BID FOR 7 DAYS [facility] doxycycline monohydrate 100 mg tablet 1 p.o BID doxycycline monohydrate 100 mg tablet 1 p.o BID No doxycyclin e monohydrat e 100 mg tablet 1 p.o BID [facility] fluconazole 150 mg tablet Take 1 tablet every day by oral route. fluconazole 150 mg tablet Take 1 tablet every day by oral route. No 1 Q1D fluconazol e 150 mg tablet Take 1 tablet every day by oral route. [facility] Kristalose 20 gram oral packet MIX AND DRINK 1 PACKET BY MOUTH EVERY DAY Kristalose 20 gram oral packet MIX AND DRINK 1 PACKET BY MOUTH EVERY DAY No Kristalose 20 gram oral packet MIX AND DRINK 1 PACKET BY MOUTH EVERY DAY [facility] lorazepam 1 mg tablet TAKE ONE (1) TABLET(S) BY MOUTH 1 HOUR PRIOR TO SURGERY WITH A SMALL SIP OF WATER. lorazepam 1 mg tablet TAKE ONE (1) TABLET(S) BY MOUTH 1 HOUR PRIOR TO SURGERY WITH A SMALL SIP OF WATER. No lorazepam 1 mg tablet TAKE ONE (1) TABLET(S) BY MOUTH 1 HOUR PRIOR TO SURGERY WITH A SMALL SIP OF WATER. [facility] metronidazo le 500 mg tablet TAKE 1 TABLET BY MOUTH TWICE DAILY FOR 7 DAYS metronidazo le 500 mg tablet TAKE 1 TABLET BY MOUTH TWICE DAILY FOR 7 DAYS No metronidaz ole 500 mg tablet TAKE 1 TABLET BY MOUTH TWICE DAILY FOR 7 DAYS [facility] nitrofurant oin monohydrate /macrocryst als 100 mg capsule Take 1 capsule every 12 hours by oral route. nitrofurant oin monohydrate /macrocryst als 100 mg capsule Take 1 capsule every 12 hours by oral route. No nitrofuran toin monohydrat e/macrocry stals 100 mg capsule Take 1 capsule every 12 hours by oral route. [facility] nystatin 100,000 unit/gram topical cream APPLY TO THE AFFECTED AREA(S) BY TOPICAL ROUTE 2 TIMES PER DAY nystatin 100,000 unit/gram topical cream APPLY TO THE AFFECTED AREA(S) BY TOPICAL ROUTE 2 TIMES PER DAY No nystatin 100,000 unit/gram topical cream APPLY TO THE AFFECTED AREA(S) BY TOPICAL ROUTE 2 TIMES PER DAY [facility] nystatin 100,000 unit/gram topical ointment JAVIER EXT AA BID nystatin 100,000 unit/gram topical ointment JAVIER EXT AA BID No nystatin 100,000 unit/gram topical ointment JAVIER EXT AA BID [facility] Off Deep Self 25 % topical spray Off Deep Self 25 % topical spray No Off Deep Self 25 % topical spray [facility] ondansetron 4 mg disintegrat ing tablet Place 1 tablet 3 times a day by translingua l route for 15 days. ondansetron 4 mg disintegrat ing tablet Place 1 tablet 3 times a day by translingua l route for 15 days. No ondansetro n 4 mg disintegra ting tablet Place 1 tablet 3 times a day by translingu al route for 15 days. [facility] pantoprazol e 20 mg tablet,nandini yed release Take 2 tablets every day by oral route for 30 days. pantoprazol e 20 mg tablet,nandini yed release Take 2 tablets every day by oral route for 30 days. No pantoprazo le 20 mg tablet,del ayed release Take 2 tablets every day by oral route for 30 days. [facility] pantoprazol e 40 mg tablet,nandini yed release Take 1 tablet every day by oral route at bedtime for 60 days. pantoprazol e 40 mg tablet,nandini yed release Take 1 tablet every day by oral route at bedtime for 60 days. No pantoprazo le 40 mg tablet,del ayed release Take 1 tablet every day by oral route at bedtime for 60 days. [facility] ParaGard T 380A 380 square mm intrauterin e device ParaGard T 380A 380 square mm intrauterin e device No ParaGard T 380A 380 square mm intrauteri ne device [facility] Previfem 0.25 mg-35 mcg tablet Take 1 tablet every day by oral route for 28 days. Previfem 0.25 mg-35 mcg tablet Take 1 tablet every day by oral route for 28 days. No Previfem 0.25 mg-35 mcg tablet Take 1 tablet every day by oral route for 28 days. [facility] scopolamine 1 mg over 3 days transdermal patch Apply 1 patch every 72 hours by transdermal route as directed. scopolamine 1 mg over 3 days transdermal patch Apply 1 patch every 72 hours by transdermal route as directed. No scopolamin e 1 mg over 3 days transderma l patch Apply 1 patch every 72 hours by transderma l route as directed. [facility] sertraline 25 mg tablet sertraline 25 mg tablet No sertraline 25 mg tablet [facility] terconazole 0.4 % vaginal cream Insert 1 applicatorf ul every day by vaginal route for 7 days. terconazole 0.4 % vaginal cream Insert 1 applicatorf ul every day by vaginal route for 7 days. No 1applic ator(s) ful Q1D terconazol e 0.4 % vaginal cream Insert 1 applicator ful every day by vaginal route for 7 days. [facility] triamcinolo ne acetonide 0.1 % topical cream APPLY THIN LAYER TOPICALLY TO THE AFFECTED AREA TWICE DAILY triamcinolo ne acetonide 0.1 % topical cream APPLY THIN LAYER TOPICALLY TO THE AFFECTED AREA TWICE DAILY No triamcinol one acetonide 0.1 % topical cream APPLY THIN LAYER TOPICALLY TO THE AFFECTED AREA TWICE DAILY [facility] Vitafol Ultra 29 mg iron-1 mg-200 mg capsule TAKE 1 CAPSULE BY MOUTH DAILY Vitafol Ultra 29 mg iron-1 mg-200 mg capsule TAKE 1 CAPSULE BY MOUTH DAILY No Vitafol Ultra 29 mg iron-1 mg-200 mg capsule TAKE 1 CAPSULE BY MOUTH DAILY [facility] Zofran 4 mg tablet Take 1 tablet 3 times a day by oral route for 15 days. Zofran 4 mg tablet Take 1 tablet 3 times a day by oral route for 15 days. No 1 TID Zofran 4 mg tablet Take 1 tablet 3 times a day by oral route for 15 days. [facility] azithromyci n 500 mg tablet TK 2 TS PO ONCE FOR 1 DOSE azithromyci n 500 mg tablet TK 2 TS PO ONCE FOR 1 DOSE No azithromyc in 500 mg tablet TK 2 TS PO ONCE FOR 1 DOSE [facility] Biotene Dry Mouth Oral Rinse mouthwash Take 30 mL twice a day by mucous route for 30 days. Biotene Dry Mouth Oral Rinse mouthwash Take 30 mL twice a day by mucous route for 30 days. No 30mL BID Biotene Dry Mouth Oral Rinse mouthwash Take 30 mL twice a day by mucous route for 30 days. [facility] cholecalcif marcie (vitamin D3) 1,250 mcg (50,000 unit) capsule TK 1 C PO Q WK FOR 12 WKS cholecalcif marcie (vitamin D3) 1,250 mcg (50,000 unit) capsule TK 1 C PO Q WK FOR 12 WKS No cholecalci ferol (vitamin D3) 1,250 mcg (50,000 unit) capsule TK 1 C PO Q WK FOR 12 WKS [facility] [facility] clindamycin 2 % vaginal cream I 1 APL VAGINALLY QD FOR 7 DAYS clindamycin 2 % vaginal cream I 1 APL VAGINALLY QD FOR 7 DAYS No clindamyci n 2 % vaginal cream I 1 APL VAGINALLY QD FOR 7 DAYS [facility] clobetasol 0.05 % topical cream APPLY A THIN LAYER TO THE AFFECTED AREA(S) BY TOPICAL ROUTE 2 TIMES PER DAY clobetasol 0.05 % topical cream APPLY A THIN LAYER TO THE AFFECTED AREA(S) BY TOPICAL ROUTE 2 TIMES PER DAY No clobetasol 0.05 % topical cream APPLY A THIN LAYER TO THE AFFECTED AREA(S) BY TOPICAL ROUTE 2 TIMES PER DAY [facility] doxycycline hyclate 100 mg tablet TK 1 T PO BID FOR 7 DAYS doxycycline hyclate 100 mg tablet TK 1 T PO BID FOR 7 DAYS No doxycyclin e hyclate 100 mg tablet TK 1 T PO BID FOR 7 DAYS [facility] doxycycline monohydrate 100 mg tablet 1 p.o BID doxycycline monohydrate 100 mg tablet 1 p.o BID No doxycyclin e monohydrat e 100 mg tablet 1 p.o BID [facility] fluconazole 150 mg tablet Take 1 tablet every day by oral route. fluconazole 150 mg tablet Take 1 tablet every day by oral route. No 1 Q1D fluconazol e 150 mg tablet Take 1 tablet every day by oral route. [facility] ibuprofen 600 mg tablet TAKE 1 TABLET BY MOUTH EVERY 6 HOURS ibuprofen 600 mg tablet TAKE 1 TABLET BY MOUTH EVERY 6 HOURS No ibuprofen 600 mg tablet TAKE 1 TABLET BY MOUTH EVERY 6 HOURS [facility] Kristalose 20 gram oral packet MIX AND DRINK 1 PACKET BY MOUTH EVERY DAY Kristalose 20 gram oral packet MIX AND DRINK 1 PACKET BY MOUTH EVERY DAY No Kristalose 20 gram oral packet MIX AND DRINK 1 PACKET BY MOUTH EVERY DAY [facility] lorazepam 1 mg tablet TAKE ONE (1) TABLET(S) BY MOUTH 1 HOUR PRIOR TO SURGERY WITH A SMALL SIP OF WATER. lorazepam 1 mg tablet TAKE ONE (1) TABLET(S) BY MOUTH 1 HOUR PRIOR TO SURGERY WITH A SMALL SIP OF WATER. No lorazepam 1 mg tablet TAKE ONE (1) TABLET(S) BY MOUTH 1 HOUR PRIOR TO SURGERY WITH A SMALL SIP OF WATER. [facility] metronidazo le 500 mg tablet TAKE 1 TABLET BY MOUTH TWICE DAILY FOR 7 DAYS metronidazo le 500 mg tablet TAKE 1 TABLET BY MOUTH TWICE DAILY FOR 7 DAYS No metronidaz ole 500 mg tablet TAKE 1 TABLET BY MOUTH TWICE DAILY FOR 7 DAYS [facility] nitrofurant oin monohydrate /macrocryst als 100 mg capsule Take 1 capsule every 12 hours by oral route. nitrofurant oin monohydrate /macrocryst als 100 mg capsule Take 1 capsule every 12 hours by oral route. No nitrofuran toin monohydrat e/macrocry stals 100 mg capsule Take 1 capsule every 12 hours by oral route. [facility] nystatin 100,000 unit/gram topical cream APPLY TO THE AFFECTED AREA(S) BY TOPICAL ROUTE 2 TIMES PER DAY nystatin 100,000 unit/gram topical cream APPLY TO THE AFFECTED AREA(S) BY TOPICAL ROUTE 2 TIMES PER DAY No nystatin 100,000 unit/gram topical cream APPLY TO THE AFFECTED AREA(S) BY TOPICAL ROUTE 2 TIMES PER DAY [facility] nystatin 100,000 unit/gram topical ointment JAVIER EXT AA BID nystatin 100,000 unit/gram topical ointment JAVIER EXT AA BID No nystatin 100,000 unit/gram topical ointment JAVIER EXT AA BID [facility] Off Deep Self 25 % topical spray Off Deep Self 25 % topical spray No Off Deep Self 25 % topical spray [facility] ondansetron 4 mg disintegrat ing tablet Place 1 tablet 3 times a day by translingua l route for 15 days. ondansetron 4 mg disintegrat ing tablet Place 1 tablet 3 times a day by translingua l route for 15 days. No ondansetro n 4 mg disintegra ting tablet Place 1 tablet 3 times a day by translingu al route for 15 days. [facility] pantoprazol e 20 mg tablet,nandini yed release Take 2 tablets every day by oral route for 30 days. pantoprazol e 20 mg tablet,nandini yed release Take 2 tablets every day by oral route for 30 days. No pantoprazo le 20 mg tablet,del ayed release Take 2 tablets every day by oral route for 30 days. [facility] pantoprazol e 40 mg tablet,nandini yed release Take 1 tablet every day by oral route at bedtime for 60 days. pantoprazol e 40 mg tablet,nandini yed release Take 1 tablet every day by oral route at bedtime for 60 days. No pantoprazo le 40 mg tablet,del ayed release Take 1 tablet every day by oral route at bedtime for 60 days. [facility] ParaGard T 380A 380 square mm intrauterin e device ParaGard T 380A 380 square mm intrauterin e device No ParaGard T 380A 380 square mm intrauteri ne device [facility] Previfem 0.25 mg-35 mcg tablet Take 1 tablet every day by oral route for 28 days. Previfem 0.25 mg-35 mcg tablet Take 1 tablet every day by oral route for 28 days. No Previfem 0.25 mg-35 mcg tablet Take 1 tablet every day by oral route for 28 days. [facility] scopolamine 1 mg over 3 days transdermal patch Apply 1 patch every 72 hours by transdermal route as directed. scopolamine 1 mg over 3 days transdermal patch Apply 1 patch every 72 hours by transdermal route as directed. No scopolamin e 1 mg over 3 days transderma l patch Apply 1 patch every 72 hours by transderma l route as directed. [facility] sertraline 25 mg tablet sertraline 25 mg tablet No sertraline 25 mg tablet [facility] terconazole 0.4 % vaginal cream Insert 1 applicatorf ul every day by vaginal route for 7 days. terconazole 0.4 % vaginal cream Insert 1 applicatorf ul every day by vaginal route for 7 days. No 1applic ator(s) ful Q1D terconazol e 0.4 % vaginal cream Insert 1 applicator ful every day by vaginal route for 7 days. [facility] triamcinolo ne acetonide 0.1 % topical cream APPLY THIN LAYER TOPICALLY TO THE AFFECTED AREA TWICE DAILY triamcinolo ne acetonide 0.1 % topical cream APPLY THIN LAYER TOPICALLY TO THE AFFECTED AREA TWICE DAILY No triamcinol one acetonide 0.1 % topical cream APPLY THIN LAYER TOPICALLY TO THE AFFECTED AREA TWICE DAILY [facility] Vitafol Ultra 29 mg iron-1 mg-200 mg capsule TAKE 1 CAPSULE BY MOUTH DAILY Vitafol Ultra 29 mg iron-1 mg-200 mg capsule TAKE 1 CAPSULE BY MOUTH DAILY No Vitafol Ultra 29 mg iron-1 mg-200 mg capsule TAKE 1 CAPSULE BY MOUTH DAILY [facility] Zofran 4 mg tablet Take 1 tablet 3 times a day by oral route for 15 days. Zofran 4 mg tablet Take 1 tablet 3 times a day by oral route for 15 days. No 1 TID Zofran 4 mg tablet Take 1 tablet 3 times a day by oral route for 15 days. [facility] azithromyci n 500 mg tablet TK 2 TS PO ONCE FOR 1 DOSE azithromyci n 500 mg tablet TK 2 TS PO ONCE FOR 1 DOSE No azithromyc in 500 mg tablet TK 2 TS PO ONCE FOR 1 DOSE [facility] Biotene Dry Mouth Oral Rinse mouthwash Take 30 mL twice a day by mucous route for 30 days. Biotene Dry Mouth Oral Rinse mouthwash Take 30 mL twice a day by mucous route for 30 days. No 30mL BID Biotene Dry Mouth Oral Rinse mouthwash Take 30 mL twice a day by mucous route for 30 days. [facility] cholecalcif marcie (vitamin D3) 1,250 mcg (50,000 unit) capsule TK 1 C PO Q WK FOR 12 WKS cholecalcif marcie (vitamin D3) 1,250 mcg (50,000 unit) capsule TK 1 C PO Q WK FOR 12 WKS No cholecalci ferol (vitamin D3) 1,250 mcg (50,000 unit) capsule TK 1 C PO Q WK FOR 12 WKS [facility] clindamycin 2 % vaginal cream I 1 APL VAGINALLY QD FOR 7 DAYS clindamycin 2 % vaginal cream I 1 APL VAGINALLY QD FOR 7 DAYS No clindamyci n 2 % vaginal cream I 1 APL VAGINALLY QD FOR 7 DAYS [facility] clobetasol 0.05 % topical cream APPLY A THIN LAYER TO THE AFFECTED AREA(S) BY TOPICAL ROUTE 2 TIMES PER DAY clobetasol 0.05 % topical cream APPLY A THIN LAYER TO THE AFFECTED AREA(S) BY TOPICAL ROUTE 2 TIMES PER DAY No clobetasol 0.05 % topical cream APPLY A THIN LAYER TO THE AFFECTED AREA(S) BY TOPICAL ROUTE 2 TIMES PER DAY [facility] doxycycline hyclate 100 mg tablet TK 1 T PO BID FOR 7 DAYS doxycycline hyclate 100 mg tablet TK 1 T PO BID FOR 7 DAYS No doxycyclin e hyclate 100 mg tablet TK 1 T PO BID FOR 7 DAYS [facility] doxycycline monohydrate 100 mg tablet 1 p.o BID doxycycline monohydrate 100 mg tablet 1 p.o BID No doxycyclin e monohydrat e 100 mg tablet 1 p.o BID [facility] fluconazole 150 mg tablet Take 1 tablet every day by oral route. fluconazole 150 mg tablet Take 1 tablet every day by oral route. No 1 Q1D fluconazol e 150 mg tablet Take 1 tablet every day by oral route. [facility] ibuprofen 600 mg tablet TAKE 1 TABLET BY MOUTH EVERY 6 HOURS ibuprofen 600 mg tablet TAKE 1 TABLET BY MOUTH EVERY 6 HOURS No ibuprofen 600 mg tablet TAKE 1 TABLET BY MOUTH EVERY 6 HOURS [facility] Kristalose 20 gram oral packet MIX AND DRINK 1 PACKET BY MOUTH EVERY DAY Kristalose 20 gram oral packet MIX AND DRINK 1 PACKET BY MOUTH EVERY DAY No Kristalose 20 gram oral packet MIX AND DRINK 1 PACKET BY MOUTH EVERY DAY [facility] lorazepam 1 mg tablet TAKE ONE (1) TABLET(S) BY MOUTH 1 HOUR PRIOR TO SURGERY WITH A SMALL SIP OF WATER. lorazepam 1 mg tablet TAKE ONE (1) TABLET(S) BY MOUTH 1 HOUR PRIOR TO SURGERY WITH A SMALL SIP OF WATER. No lorazepam 1 mg tablet TAKE ONE (1) TABLET(S) BY MOUTH 1 HOUR PRIOR TO SURGERY WITH A SMALL SIP OF WATER. [facility] metronidazo le 500 mg tablet TAKE 1 TABLET BY MOUTH TWICE DAILY FOR 7 DAYS metronidazo le 500 mg tablet TAKE 1 TABLET BY MOUTH TWICE DAILY FOR 7 DAYS No metronidaz ole 500 mg tablet TAKE 1 TABLET BY MOUTH TWICE DAILY FOR 7 DAYS [facility] nitrofurant oin monohydrate /macrocryst als 100 mg capsule Take 1 capsule every 12 hours by oral route. nitrofurant oin monohydrate /macrocryst als 100 mg capsule Take 1 capsule every 12 hours by oral route. No nitrofuran toin monohydrat e/macrocry stals 100 mg capsule Take 1 capsule every 12 hours by oral route. [facility] nystatin 100,000 unit/gram topical cream APPLY TO THE AFFECTED AREA(S) BY TOPICAL ROUTE 2 TIMES PER DAY nystatin 100,000 unit/gram topical cream APPLY TO THE AFFECTED AREA(S) BY TOPICAL ROUTE 2 TIMES PER DAY No nystatin 100,000 unit/gram topical cream APPLY TO THE AFFECTED AREA(S) BY TOPICAL ROUTE 2 TIMES PER DAY [facility] nystatin 100,000 unit/gram topical ointment JAVIER EXT AA BID nystatin 100,000 unit/gram topical ointment JAVIER EXT AA BID No nystatin 100,000 unit/gram topical ointment JAVIER EXT AA BID [facility] Off Deep Self 25 % topical spray Off Deep Self 25 % topical spray No Off Deep Self 25 % topical spray [facility] ondansetron 4 mg disintegrat ing tablet Place 1 tablet 3 times a day by translingua l route for 15 days. ondansetron 4 mg disintegrat ing tablet Place 1 tablet 3 times a day by translingua l route for 15 days. No ondansetro n 4 mg disintegra ting tablet Place 1 tablet 3 times a day by translingu al route for 15 days. [facility] pantoprazol e 20 mg tablet,nandini yed release Take 2 tablets every day by oral route for 30 days. pantoprazol e 20 mg tablet,nandini yed release Take 2 tablets every day by oral route for 30 days. No pantoprazo le 20 mg tablet,del ayed release Take 2 tablets every day by oral route for 30 days. [facility] pantoprazol e 40 mg tablet,nandini yed release Take 1 tablet every day by oral route at bedtime for 60 days. pantoprazol e 40 mg tablet,nandini yed release Take 1 tablet every day by oral route at bedtime for 60 days. No pantoprazo le 40 mg tablet,del ayed release Take 1 tablet every day by oral route at bedtime for 60 days. [facility] ParaGard T 380A 380 square mm intrauterin e device ParaGard T 380A 380 square mm intrauterin e device No ParaGard T 380A 380 square mm intrauteri ne device [facility] Previfem 0.25 mg-35 mcg tablet Take 1 tablet every day by oral route for 28 days. Previfem 0.25 mg-35 mcg tablet Take 1 tablet every day by oral route for 28 days. No Previfem 0.25 mg-35 mcg tablet Take 1 tablet every day by oral route for 28 days. [facility] scopolamine 1 mg over 3 days transdermal patch Apply 1 patch every 72 hours by transdermal route as directed. scopolamine 1 mg over 3 days transdermal patch Apply 1 patch every 72 hours by transdermal route as directed. No scopolamin e 1 mg over 3 days transderma l patch Apply 1 patch every 72 hours by transderma l route as directed. [facility] sertraline 25 mg tablet sertraline 25 mg tablet No sertraline 25 mg tablet [facility] terconazole 0.4 % vaginal cream Insert 1 applicatorf ul every day by vaginal route for 7 days. terconazole 0.4 % vaginal cream Insert 1 applicatorf ul every day by vaginal route for 7 days. No 1applic ator(s) ful Q1D terconazol e 0.4 % vaginal cream Insert 1 applicator ful every day by vaginal route for 7 days. [facility] triamcinolo ne acetonide 0.1 % topical cream APPLY THIN LAYER TOPICALLY TO THE AFFECTED AREA TWICE DAILY triamcinolo ne acetonide 0.1 % topical cream APPLY THIN LAYER TOPICALLY TO THE AFFECTED AREA TWICE DAILY No triamcinol one acetonide 0.1 % topical cream APPLY THIN LAYER TOPICALLY TO THE AFFECTED AREA TWICE DAILY [facility] Vitafol Ultra 29 mg iron-1 mg-200 mg capsule TAKE 1 CAPSULE BY MOUTH DAILY Vitafol Ultra 29 mg iron-1 mg-200 mg capsule TAKE 1 CAPSULE BY MOUTH DAILY No Vitafol Ultra 29 mg iron-1 mg-200 mg capsule TAKE 1 CAPSULE BY MOUTH DAILY [facility] Zofran 4 mg tablet Take 1 tablet 3 times a day by oral route for 15 days. Zofran 4 mg tablet Take 1 tablet 3 times a day by oral route for 15 days. No 1 TID Zofran 4 mg tablet Take 1 tablet 3 times a day by oral route for 15 days. [facility] azithromyci n 500 mg tablet TK 2 TS PO ONCE FOR 1 DOSE azithromyci n 500 mg tablet TK 2 TS PO ONCE FOR 1 DOSE No azithromyc in 500 mg tablet TK 2 TS PO ONCE FOR 1 DOSE [facility] Biotene Dry Mouth Oral Rinse mouthwash Take 30 mL twice a day by mucous route for 30 days. Biotene Dry Mouth Oral Rinse mouthwash Take 30 mL twice a day by mucous route for 30 days. No 30mL BID Biotene Dry Mouth Oral Rinse mouthwash Take 30 mL twice a day by mucous route for 30 days. [facility] cholecalcif marcie (vitamin D3) 1,250 mcg (50,000 unit) capsule TK 1 C PO Q WK FOR 12 WKS cholecalcif marcie (vitamin D3) 1,250 mcg (50,000 unit) capsule TK 1 C PO Q WK FOR 12 WKS No cholecalci ferol (vitamin D3) 1,250 mcg (50,000 unit) capsule TK 1 C PO Q WK FOR 12 WKS [facility] clindamycin 2 % vaginal cream I 1 APL VAGINALLY QD FOR 7 DAYS clindamycin 2 % vaginal cream I 1 APL VAGINALLY QD FOR 7 DAYS No clindamyci n 2 % vaginal cream I 1 APL VAGINALLY QD FOR 7 DAYS [facility] doxycycline hyclate 100 mg tablet TK 1 T PO BID FOR 7 DAYS doxycycline hyclate 100 mg tablet TK 1 T PO BID FOR 7 DAYS No doxycyclin e hyclate 100 mg tablet TK 1 T PO BID FOR 7 DAYS [facility] doxycycline monohydrate 100 mg tablet 1 p.o BID doxycycline monohydrate 100 mg tablet 1 p.o BID No doxycyclin e monohydrat e 100 mg tablet 1 p.o BID [facility] fluconazole 150 mg tablet Take 1 tablet every day by oral route. fluconazole 150 mg tablet Take 1 tablet every day by oral route. No 1 Q1D fluconazol e 150 mg tablet Take 1 tablet every day by oral route. [facility] Kristalose 20 gram oral packet MIX AND DRINK 1 PACKET BY MOUTH EVERY DAY Kristalose 20 gram oral packet MIX AND DRINK 1 PACKET BY MOUTH EVERY DAY No Kristalose 20 gram oral packet MIX AND DRINK 1 PACKET BY MOUTH EVERY DAY [facility] lorazepam 1 mg tablet TAKE ONE (1) TABLET(S) BY MOUTH 1 HOUR PRIOR TO SURGERY WITH A SMALL SIP OF WATER. lorazepam 1 mg tablet TAKE ONE (1) TABLET(S) BY MOUTH 1 HOUR PRIOR TO SURGERY WITH A SMALL SIP OF WATER. No lorazepam 1 mg tablet TAKE ONE (1) TABLET(S) BY MOUTH 1 HOUR PRIOR TO SURGERY WITH A SMALL SIP OF WATER. [facility] metronidazo le 500 mg tablet TAKE 1 TABLET BY MOUTH TWICE DAILY FOR 7 DAYS metronidazo le 500 mg tablet TAKE 1 TABLET BY MOUTH TWICE DAILY FOR 7 DAYS No metronidaz ole 500 mg tablet TAKE 1 TABLET BY MOUTH TWICE DAILY FOR 7 DAYS [facility] nystatin 100,000 unit/gram topical cream APPLY TO THE AFFECTED AREA(S) BY TOPICAL ROUTE 2 TIMES PER DAY nystatin 100,000 unit/gram topical cream APPLY TO THE AFFECTED AREA(S) BY TOPICAL ROUTE 2 TIMES PER DAY No nystatin 100,000 unit/gram topical cream APPLY TO THE AFFECTED AREA(S) BY TOPICAL ROUTE 2 TIMES PER DAY [facility] nystatin 100,000 unit/gram topical ointment JAVIER EXT AA BID nystatin 100,000 unit/gram topical ointment JAVIER EXT AA BID No nystatin 100,000 unit/gram topical ointment JAVIER EXT AA BID [facility] Off Deep Self 25 % topical spray Off Deep Self 25 % topical spray No Off Deep Self 25 % topical spray [facility] ondansetron 4 mg disintegrat ing tablet Place 1 tablet 3 times a day by translingua l route for 15 days. ondansetron 4 mg disintegrat ing tablet Place 1 tablet 3 times a day by translingua l route for 15 days. No ondansetro n 4 mg disintegra ting tablet Place 1 tablet 3 times a day by translingu al route for 15 days. [facility] pantoprazol e 20 mg tablet,nandini yed release Take 2 tablets every day by oral route for 30 days. pantoprazol e 20 mg tablet,nandini yed release Take 2 tablets every day by oral route for 30 days. No pantoprazo le 20 mg tablet,del ayed release Take 2 tablets every day by oral route for 30 days. [facility] pantoprazol e 40 mg tablet,nandini yed release Take 1 tablet every day by oral route at bedtime for 60 days. pantoprazol e 40 mg tablet,nandini yed release Take 1 tablet every day by oral route at bedtime for 60 days. No pantoprazo le 40 mg tablet,del ayed release Take 1 tablet every day by oral route at bedtime for 60 days. [facility] Previfem 0.25 mg-35 mcg tablet Take 1 tablet every day by oral route for 28 days. Previfem 0.25 mg-35 mcg tablet Take 1 tablet every day by oral route for 28 days. No Previfem 0.25 mg-35 mcg tablet Take 1 tablet every day by oral route for 28 days. [facility] scopolamine 1 mg over 3 days transdermal patch Apply 1 patch every 72 hours by transdermal route as directed. scopolamine 1 mg over 3 days transdermal patch Apply 1 patch every 72 hours by transdermal route as directed. No scopolamin e 1 mg over 3 days transderma l patch Apply 1 patch every 72 hours by transderma l route as directed. [facility] sertraline 25 mg tablet sertraline 25 mg tablet No sertraline 25 mg tablet [facility] terconazole 0.4 % vaginal cream Insert 1 applicatorf ul every day by vaginal route for 7 days. terconazole 0.4 % vaginal cream Insert 1 applicatorf ul every day by vaginal route for 7 days. No 1applic ator(s) ful Q1D terconazol e 0.4 % vaginal cream Insert 1 applicator ful every day by vaginal route for 7 days. [facility] triamcinolo ne acetonide 0.1 % topical cream APPLY THIN LAYER TOPICALLY TO THE AFFECTED AREA TWICE DAILY triamcinolo ne acetonide 0.1 % topical cream APPLY THIN LAYER TOPICALLY TO THE AFFECTED AREA TWICE DAILY No triamcinol one acetonide 0.1 % topical cream APPLY THIN LAYER TOPICALLY TO THE AFFECTED AREA TWICE DAILY [facility] Vitafol Ultra 29 mg iron-1 mg-200 mg capsule TAKE 1 CAPSULE BY MOUTH DAILY Vitafol Ultra 29 mg iron-1 mg-200 mg capsule TAKE 1 CAPSULE BY MOUTH DAILY No Vitafol Ultra 29 mg iron-1 mg-200 mg capsule TAKE 1 CAPSULE BY MOUTH DAILY [facility] Zofran 4 mg tablet Take 1 tablet 3 times a day by oral route for 15 days. Zofran 4 mg tablet Take 1 tablet 3 times a day by oral route for 15 days. No 1 TID Zofran 4 mg tablet Take 1 tablet 3 times a day by oral route for 15 days. [facility] Vital Signs Vital Name Observation Time Observation Value Comments [facility] BP Diastolic 2021-06-26 00:00:00 63 mm[Hg] [facility] Height 2021-06-26 00:00:00 64 [in_i] [facility] BMI (Body Mass Index) 2021-06-26 00:00:00 24.3 kg/m2 [facility] BP Systolic 2021-06-26 00:00:00 103 mm[Hg] [facility] Body Weight 2021-06-26 00:00:00 141.3 [lb_av] [facility] BP Diastolic 2021-06-10 00:00:00 81 mm[Hg] [facility] Height 2021-06-10 00:00:00 64 [in_i] [facility] BMI (Body Mass Index) 2021-06-10 00:00:00 28.6 kg/m2 [facility] BP Systolic 2021-06-10 00:00:00 118 mm[Hg] [facility] Body Weight 2021-06-10 00:00:00 166.8 [lb_av] [facility] BP Diastolic 2021-06-04 00:00:00 75 mm[Hg] [facility] Height 2021-06-04 00:00:00 64 [in_i] [facility] BMI (Body Mass Index) 2021-06-04 00:00:00 27.9 kg/m2 [facility] BP Systolic 2021-06-04 00:00:00 117 mm[Hg] [facility] Body Weight 2021-06-04 00:00:00 162.6 [lb_av] [facility] BP Diastolic 2021-05-23 00:00:00 80 mm[Hg] [facility] Height 2021-05-23 00:00:00 64 [in_i] [facility] BMI (Body Mass Index) 2021-05-23 00:00:00 27.5 kg/m2 [facility] BP Systolic 2021-05-23 00:00:00 118 mm[Hg] [facility] Body Weight 2021-05-23 00:00:00 160 [lb_av] [facility] BP Diastolic 2021-04-23 00:00:00 68 mm[Hg] [facility] Height 2021-04-23 00:00:00 64 [in_i] [facility] BMI (Body Mass Index) 2021-04-23 00:00:00 27.3 kg/m2 [facility] BP Systolic 2021-04-23 00:00:00 116 mm[Hg] [facility] Body Weight 2021-04-23 00:00:00 159.1 [lb_av] [facility] BP Diastolic 2021-04-02 00:00:00 61 mm[Hg] [facility] Height 2021-04-02 00:00:00 64 [in_i] [facility] BMI (Body Mass Index) 2021-04-02 00:00:00 27.1 kg/m2 [facility] BP Systolic 2021-04-02 00:00:00 95 mm[Hg] [facility] Body Weight 2021-04-02 00:00:00 158 [lb_av] [facility] BMI (Body Mass Index) 2021-03-21 00:00:00 27.1 kg/m2 [facility] BP Systolic 2021-03-21 00:00:00 100 mm[Hg] [facility] Body Weight 2021-03-21 00:00:00 157.9 [lb_av] [facility] BP Diastolic 2021-03-21 00:00:00 67 mm[Hg] [facility] Height 2021-03-21 00:00:00 64 [in_i] [facility] Temperature Oral (F) 2021-06-14 13:00:00 98.8 F [facility] Heart Rate 2021-06-14 13:00:00 [facility] Systolic (mm Hg) 2021-06-14 13:00:00 [facility] Diastolic (mm Hg) 2021-06-14 13:00:00 [facility] Heart Rate 2021-06-14 09:03:20 [facility] Temperature Oral (F) 2021-06-14 09:02:43 98 F [facility] Systolic (mm Hg) 2021-06-14 09:02:43 [facility] Diastolic (mm Hg) 2021-06-14 09:02:43 [facility] Heart Rate 2021-06-14 09:02:43 [facility] Temperature Oral (F) 2021-06-14 05:40:04 98 F [facility] Systolic (mm Hg) 2021-06-14 05:39:49 [facility] Diastolic (mm Hg) 2021-06-14 05:39:49 [facility] Respitory Rate 2021-06-13 03:03:24 [facility] Respitory Rate 2021-06-12 15:44:00 [facility] Height 2021-06-12 03:33:00 165.1 cm [facility] BMI Calculated 2021-06-12 03:33:00 [facility] Weight 2021-06-12 03:33:00 [facility] Respitory Rate 2021-06-12 03:33:00 [facility] Height 2021-06-12 03:30:00 165.1 cm [facility] Weight 2021-06-12 03:30:00 [facility] BMI Calculated 2021-06-12 03:30:00 [facility] Systolic (mm Hg) 2021-05-21 02:55:00 [facility] Diastolic (mm Hg) 2021-05-21 02:55:00 [facility] Respitory Rate 2021-05-21 02:55:00 [facility] Systolic (mm Hg) 2021-05-21 02:39:00 [facility] Diastolic (mm Hg) 2021-05-21 02:39:00 [facility] Systolic (mm Hg) 2021-05-21 02:26:00 [facility] Diastolic (mm Hg) 2021-05-21 02:26:00 [facility] Respitory Rate 2021-05-21 01:31:00 [facility] Height 2021-05-21 00:41:00 162.56 cm [facility] BMI Calculated 2021-05-21 00:41:00 [facility] Weight 2021-05-21 00:41:00 [facility] Heart Rate 2021-05-21 00:41:00 [facility] Respitory Rate 2021-05-21 00:41:00 [facility] [place] Temperature Oral (F) 2021-05-21 00:41:00 99.1 F [facility] Height 2021-05-21 00:36:00 162.56 cm [facility] [place] Weight 2021-05-21 00:36:00 [facility] BMI Calculated 2021-05-21 00:36:00 [facility] Height 2021-05-16 08:10:00 162.56 cm [facility] [place] Weight 2021-05-16 08:10:00 [facility] [place] BMI Calculated 2021-05-16 08:10:00 [facility] Systolic (mm Hg) 2021-05-16 08:08:00 [facility] [place] Diastolic (mm Hg) 2021-05-16 08:08:00 [facility] [place] Heart Rate 2021-05-16 08:08:00 [facility] Respitory Rate 2021-05-16 08:08:00 [facility] Temperature Oral (F) 2021-05-16 08:08:00 98.3 F [facility] [place] Height 2021-01-26 03:22:00 162.56 cm [facility] BMI Calculated 2021-01-26 03:22:00 [facility] Weight 2021-01-26 03:22:00 [facility] [place] Systolic (mm Hg) 2021-01-26 03:22:00 [facility] Diastolic (mm Hg) 2021-01-26 03:22:00 [facility] Heart Rate 2021-01-26 03:22:00 [facility] [place] Respitory Rate 2021-01-26 03:22:00 [facility] [place] BP Diastolic 2020-07-01 22:17:00 74 mm[Hg] [facility] BP Systolic 2020-07-01 22:17:00 109 mm[Hg] [facility] Oxygen saturation by Pulse oximetry 2020-07-01 22:17:00 99 /min [facility] Heart Rate 2020-07-01 22:17:00 80 /min [facility] Respiratory rate 2020-07-01 22:17:00 20 /min [facility] Body Temperature 2020-07-01 22:17:00 98.0 [degF] [facility] Oxygen saturation by Pulse oximetry 2020-07-01 22:14:00 99 /min [facility] Oxygen saturation by Pulse oximetry 2020-07-01 17:18:00 100 /min [facility] BMI Calculated 2017-11-10 20:41:00 [facility] Weight 2017-11-10 20:41:00 [facility] [place] Height 2017-11-10 20:41:00 162.56 cm [facility] [place] Temperature Oral (F) 2017-11-10 20:41:00 98.7 F [facility] [place] Respitory Rate 2017-11-10 20:41:00 [facility] [place] Heart Rate 2017-11-10 20:41:00 [facility] Systolic (mm Hg) 2017-11-10 20:41:00 [facility] Diastolic (mm Hg) 2017-11-10 20:41:00 [facility] Height 2017-09-18 18:31:00 162.56 cm [facility] [place] Weight 2017-09-18 18:31:00 [facility] [place] BMI Calculated 2017-09-18 18:31:00 [facility] Systolic (mm Hg) 2017-09-18 18:31:00 [facility] Diastolic (mm Hg) 2017-09-18 18:31:00 [facility] [place] Temperature Oral (F) 2017-09-18 18:31:00 99.2 F [facility] Heart Rate 2017-09-18 18:31:00 [facility] [place] Respitory Rate 2017-09-18 18:31:00 [facility] [place] Weight 2017-09-04 20:16:00 [facility] BMI Calculated 2017-09-04 20:16:00 [facility] [place] Height 2017-09-04 20:16:00 162.56 cm [facility] Systolic (mm Hg) 2017-09-04 20:16:00 [facility] [place] Diastolic (mm Hg) 2017-09-04 20:16:00 [facility] [place] Respitory Rate 2017-09-04 20:16:00 [facility] Heart Rate 2017-09-04 20:16:00 [facility] Temperature Oral (F) 2017-09-04 20:16:00 [facility] Procedure Date / Time Performed Performing Clinicia n Source US Gallbladder 2020-07-01 00:00:00 [facility] Influenza vaccination 2017-11-10 05:00:00 [facility] [place] Papanicolaou smear taken<sup>1</sup> 2017-03-20 06:00:00 [facility] Papanicolaou smear taken 2017-03-19 06:00:00 [facility] Plan of Care Planned Activity Planned Date Details Comments Source Diagnostic Test Pending 2021-06-26 00:00:00 Indirect antiglobulin test.IgG specific reagent [Presence] in Serum or Plasma [code = 1005-8] [facility] Diagnostic Test Pending 2021-06-26 00:00:00 unlisted lab [code = unlisted lab] [facility] Instructions Abdominal Pain - Adult [facility] Instructions Marijuana Abuse [facility] Encounters Start Date/Time End Date/Time Encounter Type Admission Type Attending Clinicians Care Facility Care Department Encounter ID Source 2022-04-15 06:15:41 Outpatient [facility] [id number] [facility] 2022-04-04 16:22:50 Outpatient [facility] [id number] [facility] 2021-12-16 13:08:26 Outpatient [facility] [id number] [facility] 2021-04-23 10:09:43 Inpatient TERESA CAMPBELL TW T [id number] T 2020-12-21 09:03:07 Outpatient [facility] [id number] [facility] 2020-07-01 17:07:00 Inpatient [facility] [id number] [facility] 2020-06-19 11:50:00 Inpatient [facility] [id number] [facility] 2023-03-12 00:00:00 2023-03-12 00:00:00 Outpatient GC_AWC_Nguy en_J PRIV PRIV [id number] [facility] 2022-04-01 17:45:00 2022-04-02 02:23:00 Emergency [facility] [id number] [facility] 2022-03-28 14:00:00 2022-03-28 14:00:00 Outpatient ALANA SADLER NATALEE MOJICA [id number] Natalee Munoz 2022-03-27 00:00:00 2022-03-27 00:00:00 Outpatient Hoang_N VFP VFP [id number] [facility] 2022-03-25 21:59:00 2022-03-26 00:20:00 Emergency EM Haley Michael [facility] [id number] [facility] 2022-01-07 10:00:00 2022-01-07 10:00:00 Outpatient SUSAN WOODARD [facility] [id number] [facility] 2021-07-22 03:49:00 2021-07-22 03:49:00 Outpatient GC_AWC_Nguy en_J PRIV PRIV [id number] [facility] 2021-07-17 10:46:00 2021-07-17 10:46:00 Outpatient GC_AWC_Nguy en_J [facility] PRIV [id number] [facility] 2021-07-17 10:46:00 2021-07-17 10:46:00 Outpatient GC_AWC_Nguy en_J [facility] PRIV [id number] [facility] 2021-06-26 11:10:00 2021-06-26 11:10:00 Outpatient GC_AWC_Nguy en_J [facility] PRIV [id number] [facility] 2021-06-26 00:00:00 2021-06-26 00:00:00 Teresa Campbell MD: [address] [phone] , [facility] - GC_AWC_Spri ng Office* [id number] [facility] 2021-06-26 00:00:00 2021-06-26 00:00:00 Outpatient Shannan Teresa Rojas [facility] [id number] 2021-06-24 01:24:00 2021-06-24 01:24:00 Outpatient GC_AWC_Nguy en_J [facility] PRIV [id number] [facility] 2021-06-17 11:08:00 2021-06-17 11:08:00 Outpatient GC_AWC_Nguy en_J [facility] PRIV [id number] [facility] 2021-06-17 00:00:00 2021-06-17 00:00:00 Teresa Campbell MD: [address] [address] , [facility] - GC_AWC_Spri ng Office* [id number] [facility] 2021-06-12 03:20:19 2021-06-14 18:35:00 Inpatient nullFlavo r [facility] [id number] [facility] 2021-06-11 22:53:00 2021-06-11 22:20:00 Inpatient Hannah SHANNAN TERESA [facility] [id number] [facility] 2021-06-10 11:19:00 2021-06-10 11:19:00 Outpatient GC_AWC_Nguy en_J [facility] [id number] [facility] 2021-06-10 00:00:00 2021-06-10 00:00:00 Teresa Campbell MD: [address] [address] , [facility] - GC_AWC_Spri ng Office* [id number] [facility] 2021-06-10 00:00:00 2021-06-10 00:00:00 Outpatient Teresa Campbell [facility] [id number] 2021-06-09 11:03:00 2021-06-09 11:03:00 Outpatient GC_AWC_Nguy en_J PRIV PRIV [id number] [facility] 2021-06-04 11:54:00 2021-06-04 11:54:00 Outpatient GC_AWC_Nguy en_J PRIV PRIV [id number] [facility] 2021-06-04 00:00:00 2021-06-04 00:00:00 Teresa Campbell MD: [address] [address] , [facility] - GC_AWC_Spri ng Office* [id number] [facility] 2021-06-04 00:00:00 2021-06-04 00:00:00 Outpatient Teresa Campbell [facility] PRIV [id number] 10:45:00 2021-05-26 10:45:00 Outpatient GC_AWC_Nguy en_J PRIV PRIV [id number] [facility] 2021-05-23 09:43:00 2021-05-23 09:43:00 Outpatient GC_AWC_Nguy en_J PRIV PRIV [id number] [facility] 2021-05-23 00:00:00 2021-05-23 00:00:00 Teresa Campbell MD: [address] [address] , [facility] - GC_AWC_Spri ng Office* [id number] [facility] 2021-05-23 00:00:00 2021-05-23 00:00:00 Outpatient Teresa Campbell [facility] PRIV [id number] 2021-05-21 00:19:51 2021-05-21 03:20:00 Emergency [facility] [id number] Betzy garcia [place] 2021-05-20 19:19:00 2021-05-20 22:20:[address] [id number] [facility] 2021-05-16 08:05:24 2021-05-16 08:44:00 Emergency Tracee Turner [facility] [id number] Betzy garcia [place] 2021-05-16 03:05:00 2021-05-16 03:44:00 Emergency ELMIRA COLE [facility] [address] [facility] 2021-05-08 11:10:00 2021-05-08 11:10:00 Outpatient GC_AWC_Nguy en_J PRIV PRIV [id number] [facility] 2021-04-30 03:13:00 2021-04-30 03:13:00 Outpatient GC_AWC_Nguy en_J PRIV PRIV [id number] [facility] 2021-04-30 03:13:00 2021-04-30 03:13:00 Outpatient GC_AWC_Nguy en_J PRIV PRIV [id number] [facility] 2021-04-23 09:52:00 2021-04-23 09:52:00 Outpatient GC_AWC_Nguy en_J PRIV PRIV [id number] [facility] 2021-04-23 00:00:00 2021-04-23 00:00:00 Teresa Campbell MD: [address] [address] , [facility] - GC_AWC_Spri ng Office* [id number] [facility] 2021-04-23 00:00:00 2021-04-23 00:00:00 Outpatient Teresa Campbell PRIV PRIV [id number] 2021-04-08 01:02:00 2021-04-08 01:02:00 Outpatient GC_TWH_Brow n_J PRIV PRIV [id number] [facility] 2021-04-08 01:02:00 2021-04-08 01:02:00 Outpatient GC_AWC_Nguy en_J PRIV PRIV [id number] [facility] 2021-04-03 04:42:00 2021-04-03 04:42:00 Outpatient GC_AWC_Nguy en_J PRIV PRIV [id number] [facility] 2021-04-03 04:42:00 2021-04-03 04:42:00 Outpatient GC_AWC_Nguy en_J PRIV PRIV [id number] [facility] 2021-04-02 12:25:00 2021-04-02 12:25:00 Outpatient GC_AWC_Nguy en_J PRIV PRIV [id number] [facility] 2021-04-02 00:00:00 2021-04-02 00:00:00 Teresa Campbell MD: [address] [address] , [facility] - GC_AWC_Spri ng Office* [id number] [facility] 2021-04-02 00:00:00 2021-04-02 00:00:00 Outpatient Teresa Campbell [facility] PRIV PRIV [id number] 2021-04-01 08:42:00 2021-04-01 08:42:00 Outpatient GC_AWC_Nguy en_J PRIV PRIV [id number] [facility] 2021-03-22 03:06:00 2021-03-22 03:06:00 Outpatient GC_AWC_Nguy en_J PRIV PRIV [id number] [facility] 2021-03-21 12:41:00 2021-03-21 12:41:00 Outpatient GC_AWC_Nguy en_J PRIV PRIV [id number] [facility] 2021-03-21 00:00:00 2021-03-21 00:00:00 Outpatient Briseyda Benjamin [facility] [id number] 2021-03-21 00:00:00 2021-03-21 00:00:00 Briseyda Benjamin MD: [address] [place] [phone] , Ph[facility] - GC_AWC_Spri ng Office* [id number] [facility] 2021-03-19 04:53:00 2021-03-19 04:53:00 Outpatient GC_AWC_Nguy en_J [facility] [id number] [facility] 2021-01-28 03:35:00 2021-01-28 03:35:00 Outpatient GC_AWC_Nguy en_J [facility] [id number] [facility] 2021-01-26 03:11:41 2021-01-26 06:23:00 Emergency nullFlavo r [facility] [id number] Betzy Fox 2021-01-21 20:13:00 2021-01-21 22:51:00 Emergency EM Shamir Haley [facility] [id number] [facility] 2021-01-21 20:13:00 2021-01-21 22:51:00 Emergency EM Shamir Haley [facility] [id number] [facility] 2020-07-01 17:44:00 2020-07-01 22:18:00 Departed Emergency Room 1 MALACHI DICK [facility] [id number] [facility] 2017-11-24 16:00:00 2017-11-24 16:00:00 Ambulatory Pre-Reg nullFlavo r [facility] [id number] Betzy Fox 2017-11-10 20:30:00 2017-11-11 04:59:59 Outpatient nullFlavo r [facility] [id number] Betzy Fox 2017-10-20 19:45:00 2017-10-20 19:45:00 Ambulatory Pre-Reg nullFlavo r [facility] [id number] Betzy garcia [place] 2017-09-20 03:06:00 2017-09-21 04:59:59 Phone Message nullFlavo r [facility] [id number] Betzy garcia [place] 2017-09-18 18:30:00 2017-09-19 04:59:59 Outpatient nullFlavo r [facility] [id number] Betzy jose Fox 2017-09-04 20:00:00 2017-09-05 04:59:59 Outpatient nullFlavo r [facility] [id number] Betzy Fox Results Test Description Test Time Test Comments Results Result Co mments Source HCG [id number] 23:13:00* Test Item Value Reference Range Interpretation Comme nts HCG SERUM (test code = HCG) 12 mi-IU/ML 0-6 H 0 - 6 NOT PREGNA NT > 6 SUGGESTIVE OF EARLY RISES TWO FOLD EVERY 2 DAYS; SUGGEST RECONFIRMING AFTER 2 DAYS. 150,000-200,[address] TRIMESTER 10,000 - 50,000 2ND & 3RD TRIMESTER CBC W/O [id number] 23:06:00* Test Item Value Reference Range Interpretation Comme nts WHITE BLOOD CELL (test code = WBC) [...] pg 27.0-34.2 N MEAN CELL HGB CONCETRATION ( test code = MCHC) 34.0 G/DL 31.5-34.0 N RED CELL DISTRIBUTION WIDTH (test code = RDW) 12.8 SD 11.5-14.5 N PLATELET COUNT (test code = PLT) 259 K/mm3 150-450 N MEAN PLATELET VOLUME (test c ode = MPV) 10.20 fL 7.0-10.5 N Chlamydia trachomatis and Neisseria gonorrhoeae rRNA panel - Specimen by YEMI with probe [id number] 00:00:00* Test Item Value Reference Range Interpretation Comme nts aptima combo 2 swab (CT) (te st code = aptima combo 2 swab (CT)) CT neg negative aptima combo 2 swab (GC) (te st code = aptima combo 2 swab (GC)) [facility] neg [facility]swhl) 2021-06-27 00:00:00* Test Item Value Reference Range Interpretation Comme nts trichomonas vaginalis swab ( test code = trichomonas vaginalis swab) trich neg negative [facility]250-68-29 03:41:00* Test Item Value Reference Range Interpretation Comme nts Hgb (test code = Hgb) 10.2 12.0-16.0 [facility]84-83-15 03:41:00* Test Item Value Reference Range Interpretation Comme nts Hct (test code = Hct) 29.0 36.0-48.0 [facility] [id number] 03:56:00* Test Item Value Reference Range Interpretation Comme nts ABO/Rh (test code = ABO/Rh) A POS [facility] AGRIMAPS [id number] 03:56:00* Test Item Value Reference Range Interpretation Comme nts Antibody Scrn (test code = Antibody Scrn) Negative (06/11/21 10:56 PM) [facility] [id number] 03:56:00* Test Item Value Reference Range Interpretation Comme nts Rhig Reqd (test code = Rhig Reqd) See Note 1(06/11/21 10:56 PM) [facility] HospitalHkfynmoCRUKZXOONA0328-12-90 03:56:00* Test Item Value Reference Range Interpretation Comme nts WBC (test code = WBC) 9.9 3.7-10.4 [facility] HospitalZikumxiYPNWQEJNSS7401-82-14 03:56:00* Test Item Value Reference Range Interpretation Comme nts RBC (test code = RBC) 3.68 4.20-5.40 [facility] HospitalZaeyemeCZODEMRAMZ2456-11-30 03:56:00* Test Item Value Reference Range Interpretation Comme nts Hgb (test code = Hgb) 10.9 12.0-16.0 [place] [address]-04-13 03:56:00* Test Item Value Reference Range Interpretation Comme nts Hct (test code = Hct) 31.4 36.0-48.0 [place] 292172-04-13 03:56:00* Test Item Value Reference Range Interpretation Comme nts MCV (test code = MCV) 85.3 80.0-98.0 [place] [address]-04-13 03:56:00* Test Item Value Reference Range Interpretation Comme nts MCH (test code = MCH) 29.7 pg 27.0-31.0 [place] 292172-04-13 03:56:00* Test Item Value Reference Range Interpretation Comme nts MCHC (test code = MCHC) 34.8 32.0-36.0 [place] 292172-04-13 03:56:00* Test Item Value Reference Range Interpretation Comme nts RDW (test code = RDW) 13.3 11.5-14.5 [place] 292172-04-13 03:56:00* Test Item Value Reference Range Interpretation Comme nts Platelet (test code = Platelet) 204 133-450 [facility] HospitalQopyufmGRYQQELKIH5527-24-52 03:56:00* Test Item Value Reference Range Interpretation Comme nts MPV (test code = MPV) 9.2 7.4-10.4 [place] [address]-04-13 03:56:00* Test Item Value Reference Range Interpretation Comme nts Segs (test code = Segs) 80.6 45.0-75.0 [place] 292172-04-13 03:56:00* Test Item Value Reference Range Interpretation Comme nts Lymphocytes (test code = Lymphocytes) 13.9 20.0-40.0 [place] [address]-04-13 03:56:00* Test Item Value Reference Range Interpretation Comme nts Monocytes (test code = Monocytes) 5.0 2.0-12.0 [place] 292172-04-13 03:56:00* Test Item Value Reference Range Interpretation Comme nts Eosinophils (test code = Eosinophils) 0.2 See_Comment [Automated messa ge] The system which generated this result transmitted reference range: <=4.0. The reference range was not used to interpret this result as normal/abnormal. [facility] HospitalUzgzutoJJVGIVREMN1230-69-24 03:56:00* Test Item Value Reference Range Interpretation Comme nts Basophils (test code = Basophils) 0.3 See_Comment [Automated messa ge] The system which generated this result transmitted reference range: <=1.0. The reference range was not used to interpret this result as normal/abnormal. [facility] HospitalKmfrgivZLNUFXDIIM3118-20-15 03:56:00* Test Item Value Reference Range Interpretation Comme nts Neutrophils # (test code = N eutrophils #) 7.9 1.5-8.1 [facility] HospitalWvxydjeYXRHHLQGJJ1151-41-98 03:56:00* Test Item Value Reference Range Interpretation Comme nts Lymphocytes # (test code = L ymphocytes #) 1.4 1.0-5.5 [facility] HospitalNvbiqnfWSMDSVLJGT6459-25-27 03:56:00* Test Item Value Reference Range Interpretation Comme nts Monocytes # (test code = Monocytes #) 0.5 See_Comment [Automated messa ge] The system which generated this result transmitted reference range: <=0.8. The reference range was not used to interpret this result as normal/abnormal. [facility] HospitalIksjhadFTZGTCKDAF7265-70-57 03:56:00* Test Item Value Reference Range Interpretation Comme nts Hep Bs Ag (test code = Hep Bs Ag) Negative *NA*(06/11/21 10:56 PM) [facility] HospitalDqzkxriLMWQBJACUJ4581-44-97 03:56:00* Test Item Value Reference Range Interpretation Comme nts HIV Ag/Ab 4th Gen (test code = HIV Ag/Ab 4th Gen) Negative *NA*(06/11/21 10:56 PM) [facility] HospitalKrelbqyPTVXHKGFYP3370-43-03 03:56:00* Test Item Value Reference Range Interpretation Comme nts Treponemal Ab (test code = Treponemal Ab) Non-Reactive *NA*(06/11/21 10:56 PM) [facility] CenterFmnbalqLBANGXEALG2413-69-13 03:56:00* Test Item Value Reference Range Interpretation Comme nts Coronavirus (COVID-19) YEMI (test code = Coronavirus (COVID-19) YEMI) Not Detected (06/11/21 10:56 PM) [facility] HospitalDrugs identified in Urine by Screen [id number] 00:00:00* Test Item Value Reference Range Interpretation Comme nts drug screen urine (12) (test code = drug screen urine (12)) tnp [facility] [Presence] in Specimen by Organism specific [id number] 00:00:00* Test Item Value Reference Range Interpretation Comme nts culture, genital (strep B) ( test code = culture, genital (strep B)) negative negative [facility] identified in Urine by Screen [id number] 00:00:00* Test Item Value Reference Range Interpretation Comme nts drug screen urine (12) (test code = drug screen urine (12)) tnp [facility] agalactiae [Presence] in Specimen by Organism specific [id number] 00:00:00* Test Item Value Reference Range Interpretation Comme nts culture, genital (strep B) ( test code = culture, genital (strep B)) negative negative [facility] identified in Urine by Bjblgaj2162-04-07 00:00:00* Test Item Value Reference Range Interpretation Comme nts Bacteria identified in Urine by Culture (test code = 630-4) enterococcus faecalis A Other Antibiotic [Susceptibility] (test code = 73477-0) comment [facility] identified in Urine by [id number] 00:00:00* Test Item Value Reference Range Interpretation Comme nts Bacteria identified in Urine by Culture (test code = 630-4) enterococcus faecalis A Other Antibiotic [Susceptibility] (test code = 70160-7) comment [facility] identified in Urine by Screen [id number] 00:00:00* Test Item Value Reference Range Interpretation Comme nts amphetamines (test code = amphetamines) negative <1000 barbiturates (test code = barbiturates) negative <200 benzodiazepines (test code = benzodiazepines) negative <200 cocaine (test code = cocaine) negative <300 creatinine (test code = creatinine) 100.4 mg/dL >19.9 methadone (test code = methadone) negative <300 opiates (test code = opiates) negative <300 phencyclidine(pcp) (test cod e = phencyclidine(pcp)) negative <25 alcohol (test code = alcohol) negative <20 buprenorphine (test code = buprenorphine) negative <5 ecstasy (MDMA) (test code = ecstasy (MDMA)) negative neg(300NG/mL) THC (test code = THC) negative <20 [facility] Urine by Screen [id number] 00:00:00* Test Item Value Reference Range Interpretation Comme nts amphetamines (test code = amphetamines) negative <1000 barbiturates (test code = barbiturates) negative <200 benzodiazepines (test code = benzodiazepines) negative <200 cocaine (test code = cocaine) negative <300 creatinine (test code = creatinine) 100.4 mg/dL >19.9 methadone (test code = methadone) negative <300 opiates (test code = opiates) negative <300 phencyclidine(pcp) (test cod e = phencyclidine(pcp)) negative <25 alcohol (test code = alcohol) negative <20 buprenorphine (test code = buprenorphine) negative <5 ecstasy (MDMA) (test code = ecstasy (MDMA)) negative neg(300NG/mL) THC (test code = THC) negative <20 [facility] agalactiae [Presence] in Specimen by Organism specific [id number] 00:00:00* Test Item Value Reference Range Interpretation Comme nts culture, genital grp B (test code = culture, genital grp B) tnp [facility] in Urine by Screen [id number] 00:00:00* Test Item Value Reference Range Interpretation Comme nts amphetamines (test code = amphetamines) negative <1000 barbiturates (test code = barbiturates) negative <200 benzodiazepines (test code = benzodiazepines) negative <200 cocaine (test code = cocaine) negative <300 creatinine (test code = creatinine) 100.4 mg/dL >19.9 methadone (test code = methadone) negative <300 opiates (test code = opiates) negative <300 phencyclidine(pcp) (test cod e = phencyclidine(pcp)) negative <25 alcohol (test code = alcohol) negative <20 buprenorphine (test code = buprenorphine) negative <5 ecstasy (MDMA) (test code = ecstasy (MDMA)) negative neg(300NG/mL) THC (test code = THC) negative <20 [facility] MedicalStreptococcus agalactiae [Presence] in Specimen by Organism specific [id number] 00:00:00* Test Item Value Reference Range Interpretation Comme nts culture, genital grp B (test code = culture, genital grp B) tnp [facility] MedicalChlamydia trachomatis and Neisseria gonorrhoeae rRNA panel - Specimen by YEMI with probe [id number] 00:00:00* Test Item Value Reference Range Interpretation Comme nts aptima combo 2 swab (CT) (te st code = aptima combo 2 swab (CT)) CT neg negative aptima combo 2 swab (GC) (te st code = aptima combo 2 swab (GC)) GC neg negative [facility] Medicaltrichomonas vaginalis swab (swhl) 2021-05-24 00:00:00* Test Item Value Reference Range Interpretation Comme nts trichomonas vaginalis swab ( test code = trichomonas vaginalis swab) trich neg negative [facility] MedicalChlamydia trachomatis and Neisseria gonorrhoeae rRNA panel - Specimen by YEMI with probe [id number] 00:00:00* Test Item Value Reference Range Interpretation Comme nts aptima combo 2 swab (CT) (te st code = aptima combo 2 swab (CT)) CT neg negative aptima combo 2 swab (GC) (te st code = aptima combo 2 swab (GC)) GC neg negative [facility] Medicaltrichomonas vaginalis swab (swhl) 2021-05-24 00:00:00* Test Item Value Reference Range Interpretation Comme nts trichomonas vaginalis swab ( test code = trichomonas vaginalis swab) trich neg negative [facility] MedicalCulture: [id number] 02:15:00* Test Item Value Reference Range Interpretation Comme nts Culture: Urine (test code = Culture: Urine) No Growth; [facility] [id number] 01:04:00* Test Item Value Reference Range Interpretation Comme nts UA Color (test code = UA Color) Dolores *ABN*(05/20/21 8:04 PM) [facility] [id number] 01:04:00* Test Item Value Reference Range Interpretation Comme nts UA Turbidity (test code = UA Turbidity) Marked *ABN*(05/20/21 8:04 PM) [facility] AND [id number] 01:04:00* Test Item Value Reference Range Interpretation Comme nts UA Spec Grav (test code = UA Spec Grav) 1.017 1 [facility] AND [id number] 01:04:00* Test Item Value Reference Range Interpretation Comme nts UA pH (test code = UA pH) 5.0 1 5.0-8.0 [facility] AND [id number] 01:04:00* Test Item Value Reference Range Interpretation Comme nts UA Protein (test code = UA Protein) Negative mg/dL [facility] AND [id number] 01:04:00* Test Item Value Reference Range Interpretation Comme nts UA Glucose (test code = UA Glucose) Negative mg/dL [facility] AND [id number] 01:04:00* Test Item Value Reference Range Interpretation Comme nts UA Ketones (test code = UA Ketones) Negative mg/dL [facility] AND [id number] 01:04:00* Test Item Value Reference Range Interpretation Comme nts UA Bili (test code = UA Bili) Negative *NA*(05/20/21 8:04 PM) [facility] AND [id number] 01:04:00* Test Item Value Reference Range Interpretation Comme nts UA Blood (test code = UA Blood) Negative (05/20/21 8:04 PM) [facility] AND [id number] 01:04:00* Test Item Value Reference Range Interpretation Comme nts UA Urobilinogen (test code = UA Urobilinogen) 4.0 0.1-1.0 [facility] AND [id number] 01:04:00* Test Item Value Reference Range Interpretation Comme nts UA Nitrite (test code = UA Nitrite) Negative (05/20/21 8:04 PM) [facility] AND [id number] 01:04:00* Test Item Value Reference Range Interpretation Comme nts UA Leuk Est (test code = UA Leuk Est) Moderate *ABN*(05/20/21 8:04 PM) [facility] AND [id number] 01:04:00* Test Item Value Reference Range Interpretation Comme nts UA Sq Epi (test code = UA Sq Epi) Many /LPF [facility] AND [id number] 01:04:00* Test Item Value Reference Range Interpretation Comme nts UA WBC (test code = UA WBC) 21 See_Comment [Automated messa ge] The system which generated this result transmitted reference range: <=5. The reference range was not used to interpret this result as normal/abnormal. [facility] [id number] 01:04:00* Test Item Value Reference Range Interpretation Comme nts UA RBC (test code = UA RBC) 5 See_Comment [Automated messa ge] The system which generated this result transmitted reference range: <=2. The reference range was not used to interpret this result as normal/abnormal. [facility] [id number] 01:04:00* Test Item Value Reference Range Interpretation Comme nts UA Bacteria (test code = UA Bacteria) Occasional /HPF [facility] AND [id number] 01:04:00* Test Item Value Reference Range Interpretation Comme nts UA Mucus (test code = UA Mucus) Few /LPF [facility] HospitalGlucose [Mass/volume] in Serum or Plasma --1 hour post XXX [id number] 00:00:00* Test Item Value Reference Range Interpretation Comme nts glucose, 1HR pp (test code = glucose, 1HR pp) 144 mg/dL <200 [facility] panel - Blood by Automated [id number] 00:00:00* Test Item Value Reference Range Interpretation Comme nts WBC (test code = WBC) 10.59 x10(3)/uL [...] % 12.0-15.5 platelet count (test code = platelet count) 255 x10(3)/uL 140-425 MPV (test code = MPV) 11.0 fL 8.6-12.1 [facility] MedicalHepatitis C virus RNA [Units/volume] (viral load) in Serum or Plasma by YEMI with probe [id number] 00:00:00* Test Item Value Reference Range Interpretation Comme nts hep. C RNA, (log-10) (test c ode = hep. C RNA, (log-10)) <1.18 <1.18 hep. C RNA, (IU) (test code = hep. C RNA, (IU)) <15 nd <15 [facility]HIV 1+2 Ab+HIV1 p24 Ag [Presence] in Serum or Plasma by [id number] 00:00:00* Test Item Value Reference Range Interpretation Comme nts ethnicity: (test code = ethnicity:) race: (test code = race:) other HIV Ag/Ab (test code = HIV Ag/Ab) non-reactive non-reactive [facility] MedicalHepatitis B virus surface Ag [Presence] in [id number] 00:00:00* Test Item Value Reference Range Interpretation Comme nts ethnicity: (test code = ethnicity:) race: (test code = race:) other hep. B surf. Ag (test code = hep. B surf. Ag) non-reactive non-reactive [facility] MedicalReagin Ab [Presence] in Serum by [id number] 00:00:00* Test Item Value Reference Range Interpretation Comme nts ethnicity: (test code = ethnicity:) race: (test code = race:) other RPR (test code = RPR) non-reactive non-reactive [facility] MuufriCHEM [id number] 04:28:00* Test Item Value Reference Range Interpretation Comme nts Glucose Lvl (test code = Glucose Lvl) 84 70-99 [facility] [employer] [id number] 04:28:00* Test Item Value Reference Range Interpretation Comme nts BUN (test code = BUN) 7 7-22 [facility] [employer] [id number] 04:28:00* Test Item Value Reference Range Interpretation Comme nts Creatinine Lvl (test code = Creatinine Lvl) 0.46 0.50-1.40 [facility] [id number] 04:28:00* Test Item Value Reference Range Interpretation Comme nts Sodium Lvl (test code = Sodium Lvl) 136 135-145 [facility] [id number] 04:28:00* Test Item Value Reference Range Interpretation Comme nts Potassium Lvl (test code = P otassium Lvl) 3.7 3.5-5.1 [facility] [id number] 04:28:00* Test Item Value Reference Range Interpretation Comme nts Chloride Lvl (test code = Chloride Lvl) 105 95-109 [facility] [id number] 04:28:00* Test Item Value Reference Range Interpretation Comme nts CO2 (test code = CO2) 25 24-32 [facility] [id number] 04:28:00* Test Item Value Reference Range Interpretation Comme nts Calcium Lvl (test code = Calcium Lvl) 8.7 8.5-10.5 [facility] [id number] 04:28:00* Test Item Value Reference Range Interpretation Comme nts AGAP (test code = AGAP) 9.7 10.0-20.0 [facility] [id number] 04:28:00* Test Item Value Reference Range Interpretation Comme nts eGFR (test code = eGFR) 143 [facility] [place] [id number] 04:28:00* Test Item Value Reference Range Interpretation Comme nts Lipase Lvl (test code = Lipase Lvl) 61 73-393 [facility] [id number] 04:28:00* Test Item Value Reference Range Interpretation Comme nts Total Protein (test code = T otal Protein) 7.4 6.4-8.4 [facility] [id number] 04:28:00* Test Item Value Reference Range Interpretation Comme nts Albumin Lvl (test code = Albumin Lvl) 3.3 3.5-5.0 [facility] [id number] 04:28:00* Test Item Value Reference Range Interpretation Comme nts ALT (test code = ALT) 27 See_Comment [A utomated message] The system which generated this result transmitted reference range: <=65. The reference range was not used to interpret this result as normal/abnormal. [place] [id number] 04:28:00* Test Item Value Reference Range Interpretation Comme nts AST (test code = AST) 11 See_Comment [A utomated message] The system which generated this result transmitted reference range: <=37. The reference range was not used to interpret this result as normal/abnormal. [place] [id number] 04:28:00* Test Item Value Reference Range Interpretation Comme nts Alk Phos (test code = Alk Phos) 52 39-136 [place] [id number] 04:28:00* Test Item Value Reference Range Interpretation Comme nts Bili Total (test code = Bili Total) 0.3 0.2-1.3 [place] [address]-11-27 04:28:00* Test Item Value Reference Range Interpretation Comme nts Bili Direct (test code = Bili Direct) 0.1 See_Comment [Automated messa ge] The system which generated this result transmitted reference range: <=0.3. The reference range was not used to interpret this result as normal/abnormal. [facility]2021-11-27 04:28:00* Test Item Value Reference Range Interpretation Comme nts Bili Indirect (test code = Bili Indirect) 0.2 See_Comment [Automated message] The system which generated this result transmitted reference range: <=1.0. The reference range was not used to interpret this result as normal/abnormal. [place] [id number] 04:28:00* Test Item Value Reference Range Interpretation Comme nts Globulin (test code = Globulin) 4.1 2.7-4.2 [place] [id number] 04:28:00* Test Item Value Reference Range Interpretation Comme nts A/G Ratio (test code = A/G Ratio) 0.8 1 0.7-1.6 [facility]SOLAHHUTCDPOQ2844-[facility]-28 04:28:00* Test Item Value Reference Range Interpretation Comme nts hCG Tot (test code = hCG Tot) 6875 [facility] HospitalFbkxhunOFJQBEQOVH6498-06-77 04:28:00* Test Item Value Reference Range Interpretation Comme nts WBC (test code = WBC) 9.0 3.7-10.4 [facility]WswynhsOMGNHDZXVM8605-51-96 04:28:00* Test Item Value Reference Range Interpretation Comme nts RBC (test code = RBC) 3.91 4.20-5.40 [facility] HospitalIdmrgvoJTBKWYSGVA3127-86-01 04:28:00* Test Item Value Reference Range Interpretation Comme nts Hgb (test code = Hgb) 11.9 12.0-16.0 [facility] HospitalSkrdvorBPULTXRGZA9098-86-56 04:28:00* Test Item Value Reference Range Interpretation Comme nts Hct (test code = Hct) 34.1 36.0-48.0 [facility] HospitalLdxlovrHSYXAZJNDR9306-83-81 04:28:00* Test Item Value Reference Range Interpretation Comme nts MCV (test code = MCV) 87.2 80.0-98.0 [facility] HospitalOkwocyuMLKHGIJQHY1794-69-97 04:28:00* Test Item Value Reference Range Interpretation Comme nts MCH (test code = MCH) 30.4 pg 27.0-31.0 [facility] HospitalXdnpkeqCZDGECATCI2675-97-36 04:28:00* Test Item Value Reference Range Interpretation Comme nts MCHC (test code = MCHC) 34.9 32.0-36.0 [facility] HospitalYhmapesZQIXOCCTMR0679-00-71 04:28:00* Test Item Value Reference Range Interpretation Comme nts RDW (test code = RDW) 13.2 11.5-14.5 [facility] HospitalAjgypvgGZCXGDKHKU8568-44-37 04:28:00* Test Item Value Reference Range Interpretation Comme nts Platelet (test code = Platelet) 281 133-450 [facility] HospitalBjlcppsQPCYXLLDQE4228-91-63 04:28:00* Test Item Value Reference Range Interpretation Comme nts MPV (test code = MPV) 8.0 7.4-10.4 [facility] HospitalKxrlophBGIWXBKSDX1428-74-01 04:28:00* Test Item Value Reference Range Interpretation Comme nts Segs (test code = Segs) 75.9 45.0-75.0 [facility] HospitalMsshtrmZDSQDYDRGJ7558-30-46 04:28:00* Test Item Value Reference Range Interpretation Comme nts Lymphocytes (test code = Lymphocytes) 19.7 20.0-40.0 [facility] HospitalQmkvqmsOIETJEYDSN4985-44-30 04:28:00* Test Item Value Reference Range Interpretation Comme nts Monocytes (test code = Monocytes) 3.2 2.0-12.0 [facility] HospitalBdcjwxfXXDRSPOUGU9027-44-70 04:28:00* Test Item Value Reference Range Interpretation Comme nts Eosinophils (test code = Eosinophils) 0.3 See_Comment [Automated messa ge] The system which generated this result transmitted reference range: <=4.0. The reference range was not used to interpret this result as normal/abnormal. [facility] HospitalVhwnbypSKDRAAGQZG7481-70-48 04:28:00* Test Item Value Reference Range Interpretation Comme nts Basophils (test code = Basophils) 0.9 See_Comment [Automated messa ge] The system which generated this result transmitted reference range: <=1.0. The reference range was not used to interpret this result as normal/abnormal. [facility] HospitalRncxlesGZMLZOQKJY0528-12-40 04:28:00* Test Item Value Reference Range Interpretation Comme nts Neutrophils # (test code = N eutrophils #) 6.9 1.5-8.1 [facility] HospitalGrgwfqfXLZRBRPVFG3914-91-06 04:28:00* Test Item Value Reference Range Interpretation Comme nts Lymphocytes # (test code = L ymphocytes #) 1.8 1.0-5.5 [facility] HospitalHheoerqSRHMUNLNFS5273-76-67 04:28:00* Test Item Value Reference Range Interpretation Comme nts Monocytes # (test code = Monocytes #) 0.3 See_Comment [Automated messa ge] The system which generated this result transmitted reference range: <=0.8. The reference range was not used to interpret this result as normal/abnormal. [facility] HospitalNxlgfgzHOHSUXYLCQ4497-86-75 04:28:00* Test Item Value Reference Range Interpretation Comme nts Basophils # (test code = Basophils #) 0.1 See_Comment [Automated messa ge] The system which generated this result transmitted reference range: <=0.2. The reference range was not used to interpret this result as normal/abnormal. [facility]2021-11-27 04:07:00* Test Item Value Reference Range Interpretation Comme nts UA Color (test code = UA Color) Dolores *ABN*(01/25/21 10:07 PM) [facility]2021-11-27 04:07:00* Test Item Value Reference Range Interpretation Comme nts UA Turbidity (test code = UA Turbidity) Slight *ABN*(01/25/21 10:07 PM) [facility] AND [id number] 04:07:00* Test Item Value Reference Range Interpretation Comme nts UA Spec Grav (test code = UA Spec Grav) 1.020 1 [facility] AND [id number] 04:07:00* Test Item Value Reference Range Interpretation Comme nts UA pH (test code = UA pH) 5.0 1 5.0-8.0 [facility] AND [id number] 04:07:00* Test Item Value Reference Range Interpretation Comme nts UA Protein (test code = UA Protein) Negative mg/dL [facility] AND [id number] 04:07:00* Test Item Value Reference Range Interpretation Comme nts UA Glucose (test code = UA Glucose) Negative mg/dL [facility] AND [id number] 04:07:00* Test Item Value Reference Range Interpretation Comme nts UA Ketones (test code = UA Ketones) 80 mg/dL [facility] AND [id number] 04:07:00* Test Item Value Reference Range Interpretation Comme nts UA Bili (test code = UA Bili) Negative *NA*(01/25/21 10:07 PM) [facility] AND [id number] 04:07:00* Test Item Value Reference Range Interpretation Comme nts UA Blood (test code = UA Blood) Negative (01/25/21 10:07 PM) [facility] AND [id number] 04:07:00* Test Item Value Reference Range Interpretation Comme nts UA Urobilinogen (test code = UA Urobilinogen) 2.0 0.1-1.0 [facility] AND [id number] 04:07:00* Test Item Value Reference Range Interpretation Comme nts UA Nitrite (test code = UA Nitrite) Negative (01/25/21 10:07 PM) [facility] AND [id number] 04:07:00* Test Item Value Reference Range Interpretation Comme nts UA Leuk Est (test code = UA Leuk Est) Trace *ABN*(01/25/21 10:07 PM) [facility] AND [id number] 04:07:00* Test Item Value Reference Range Interpretation Comme nts UA Sq Epi (test code = UA Sq Epi) Many /LPF [facility]ann[facility] AND [id number] 04:07:00* Test Item Value Reference Range Interpretation Comme nts UA WBC (test code = UA WBC) 4 See_Comment [Automated EZBOBa ge] The system which generated this result transmitted reference range: <=5. The reference range was not used to interpret this result as normal/abnormal. [facility] AND [id number] 04:07:00* Test Item Value Reference Range Interpretation Comme nts UA RBC (test code = UA RBC) 3 See_Comment [Automated EZBOBa ge] The system which generated this result transmitted reference range: <=2. The reference range was not used to interpret this result as normal/abnormal. [facility] AND [id number] 04:07:00* Test Item Value Reference Range Interpretation Comme nts UA Bacteria (test code = UA Bacteria) Occasional /HPF [facility] AND [id number] 04:07:00* Test Item Value Reference Range Interpretation Comme nts UA Mucus (test code = UA Mucus) Few /LPF [facility] CenterannURINALYSIS EPAACUQI0162-61-48 22:03:00* Test Item Value Reference Range Interpretation Comme nts UA COLOR (test code = COLU) DARK YELLOW YELLOW A UA APPEARANCE (test code = APPU) SLIGHT CLOUDY CLEAR A UA GLUCOSE DIPSTICK (test code = DGLUU) norm mg/dL NEGATIVE UA BILIRUBIN DIPSTICK (test code = BILU) NEGATIVE mg/dL NEGATIVE UA KETONE DIPSTICK (test code = KETU) 150 (4+) mg/dL NEGATIVE A UA SPECIFIC GRAVITY (test code = SGU) 1.025 1.001-1.035 UA BLOOD DIPSTICK (test code = KAYLA) neg Joseph/uL NEGATIVE UA PH DIPSTICK (test code = MICHAEL) 6.0 5.0-8.0 UA PROTEIN DIPSTICK (test code = PROU) 30 (1+) mg/dL Neg-15 A UA UROBILINIOGEN DIPSTICK (test code = URO) 1 mg/dL 0.0-0.2 A UA NITRITE DIPSTICK (test code = AURE) NEGATIVE NEGATIVE UA LEUKOCYTE ESTERASE DIPSTICK (test code = LEUU) 500 Calin/uL (3+) uL NEGATIVE A UA WBC (test code = WBCU) 5-10 per HPF 0-5 A UA RBC (test code = RBCU) NONE SEEN per HPF 0-5 UA EPITHELIAL CELLS (test code = EPIU) Many (>10/hpf) per HPF Few A UA BACTERIA (test code = BACU) MANY per HPF NONE A Urine Source? Clean CatchBASIC METABOLIC [id number] 21:16:00* Test Item Value Reference Range Interpretation Comme nts SODIUM (test code = NA) 139 mmol/L 136-145 N POTASSIUM (test code = K) 3.6 mmol/L 3.5-5.1 N CHLORIDE (test code = CL) 104 mmol/L 101-109 N CARBON DIOXIDE (test code = CO2) 24.9 mmol/L 21-32 N ANION GAP (test code = GAP) 14 mmol/L 10-20 N GLUCOSE (test code = GLU) 85 mg/dL 74-106 N BLOOD UREA NITROGEN (test code = BUN) 8 mg/dL 3-21 N GLOMERULAR FILTRATION RATE (test code = GFR) > 60 mL/min See_Comment Estimated GFR by using Modified MDRD formula.Chronic kidney disease is defined as either kidney damageor GFR <60 mL/min/1.73 m2 for >3 months. [Automated message] The system which generated this result transmitted reference range: >=60. The reference range was not used to interpret this result as normal/abnormal. CREATININE (test code = CREAT) 0.59 mg/dL 0.55-1.3 N BUN/CREATININE RATIO (test code = BUN/CREA) 13.6 10-20 N CALCIUM (test code = CA) 8.6 mg/dL 8.4-10.2 N HEPATIC FUNCTION [id number] 21:16:00* Test Item Value Reference Range Interpretation Comme nts TOTAL PROTEIN (test code = PROT) 7.3 g/dL 6.5-8.4 N ALBUMIN (test code = ALB) 3.2 g/dL 3.4-4.8 L GLOBULIN (test code = GLOB) 4.1 G/DL 1-10 N ALBUMIN/GLOBULIN RATIO (test code = A/G) 0.78 RATIO 0.75-1.50 N BILIRUBIN TOTAL (test code = BILT) 0.40 mg/dL 0.0-1.0 N BILIRUBIN DIRECT (test code = BILD) 0.20 mg/dL 0.0-0.30 N SGOT/AST (test code = AST) 21 U/L 6-32 N SGPT/ALT (test code = ALT) 32 U/L 12-78 N Note: Change in REFERENCE RANGE due to new reagent method. ALKALINE PHOSPHATASE TOTAL (test code = ALKP) 51 U/L 38-126 N [id number] 21:16:00* Test Item Value Reference Range Interpretation Comme nts LIPASE (test code = LIP) 59 U/L 128-270 L CBC W/O [id number] 20:41:00* Test Item Value Reference Range Interpretation Comme nts WHITE BLOOD CELL (test code = WBC) 7.8 K/mm3 4.5-12.5 N RED BLOOD CELL (test code = RBC) 3.81 mill/mm3 3.7-5.2 N HEMOGLOBIN (test code = HGB) 11.6 gram/dL 11.5-15.5 N HEMATOCRIT (test code = HCT) 33.9 % 36.0-46.0 L MEAN CELL VOLUME (test code = MCV) 89.0 fL 80-98 N MEAN CELL HGB (test code = MCH) 30.4 picogram 27.0-33.0 N MEAN CELL HGB CONCETRATION (test code = MCHC) 34.2 gram/dL 33.0-36.0 N RED CELL DISTRIBUTION WIDTH (test code = RDW) 13.0 % 11.6-16.2 N RED CELL DISTRIBUTION WIDTH SD (test code = RDW-SD) 42.7 fL 37.0-51.0 N PLATELET COUNT (test code = PLT) 262 K/mm3 150-450 N MEAN PLATELET VOLUME (test c ode = MPV) 9.6 fL 6.7-11.0 N [id number] 20:45:00 [facility] : 2000 Sex: F [facility] [address] [place] [address] Patient Name: JULIETTE HERNANDEZ MR #: [id number] : 2000 Age/Sex: 20/F Req #: [id number] Adm Physician: Ordered by: MALACHI DICK MD Report #: [id number] Location: ER Room/Bed: Procedure: [id number] US/US GALLBLADDER Exam Date: 07/01/20 Exam Time: 1907 REPORT STATUS: Signed EXAM: Right Upper Quadrant Ultrasound INDICATION: ruq pain [id number] Y COMPARISON: None. TECHNIQUE: Transverse and longitudinal images of the right [...] thickness: Normal Collecting system: No hydronephrosis Stones: NoneCyst/Mass: None Vessels: Main Portal Vein: Diameter: 0.8 [...] MD Fluoroscopic procedure less than one hour [id number] 17:48:00* Test Item Value Reference Range Interpretation Comme [facility] Aspartate Amino Transf (AST/ SGOT) (test code = Aspartate Amino Transf (AST/SGOT)) 10 5-34 [facility] alanine aminotransferase measurement (enzymatic activity/volume)2020-07-01 17:48:00* Test Item Value Reference Range Interpretation Comme [facility] Alanine Aminotransferase (AL T/SGPT) (test code = 1742-6) 11 0-55 [facility] or plasma protein measurement (mass/volume)2020-07-01 17:48:00* Test Item Value Reference Range Interpretation Comme [facility] Total Protein (test code = 2885-2) 8.1 6.5-8.1 [facility] plasma albumin measurement (mass/volume)2020-07-01 17:48:00* Test Item Value Reference Range Interpretation Comme [facility] Albumin (test code = 1751-7) 4.4 3.5-5.0 [facility] glob[facility] (mass/volume) 2020-07-01 17:48:00* Test Item Value Reference Range Interpretation Comme [facility] Globulin (test code = 04352-6) 3.7 2.3-3.5 [facility] Centererum or plasma albumin/globulin mass ratio 2020-07-01 17:48:00* Test Item Value Reference Range Interpretation Comme [facility] Albumin/Globulin Ratio (test code = 1759-0) 1.2 0.8-2.0 [facility]rum or plasma alkaline phosphatase measurement (enzymatic activity/volume)2020-07-01 17:48:00* Test Item Value Reference Range Interpretation Comme [facility] Alkaline Phosphatase (test c ode = 6768-6) 66 40-150 [facility]rum or plasma amylase measurement (enzymatic activity/volume)2020-07-01 17:48:00* Test Item Value Reference Range Interpretation Comme [facility] Amylase Level (test code = 1798-8) 25 25-125 [facility]ererum [facility] plasma lipase measurement (enzymatic activity/volume)2020-07-01 17:48:00* Test Item Value Reference Range Interpretation Comme [facility] Lipase (test code = 3040-3) 15 8-78 [facility] CenterBlood leukocytes automated count (number/volume)2020-07-01 17:48:00* Test Item Value Reference Range Interpretation Comme [facility] White Blood Count (test code = 6690-2) 11.52 4.8-10.8 [facility] CenterBl[facility] erythrocytes automated count (number/volume)2020-07-01 17:48:00* Test Item Value Reference Range Interpretation Comme [facility] Red Blood Count (test code = 789-8) 4.46 3.6-5.1 [facility] CenterBlood hemoglobin measurement (moles/volume) 2020-07-01 17:48:00* Test Item Value Reference Range Interpretation Comme [facility] Hemoglobin (test code = 46585-8) 13.7 12.0-16.0 [facility] CenterAutomated blood hematocrit (volume fraction) 2020-07-01 17:48:00* Test Item Value Reference Range Interpretation Comme [facility] Hematocrit (test code = 4544-3) 40.6 34.2-44.1 [facility] CenterAutomated erythrocyte mean corpuscular volume 2020-07-01 17:48:00* Test Item Value Reference Range Interpretation Comme [facility] Mean Corpuscular Volume (kay t code = 787-2) 91.0 81-99 [facility] CenterAutomated erythrocyte mean corpuscular hemoglobin (mass per erythrocyte)2020-07-01 17:48:00* Test Item Value Reference Range Interpretation Comme [facility] Mean Corpuscular Hemoglobin (test code = 785-6) 30.7 28-32 [facility] CenterAutomated erythrocyte mean corpuscular hemoglobin concentration measurement (mass/volume)2020-07-01 17:48:00* Test Item Value Reference Range Interpretation Comme nts Mean Corpuscular Hemoglobin Concent (test code = 786-4) 33.7 31-35 [facility] CenterRDW ZvzNu-Kds9362-93-02 17:48:00* Test Item Value Reference Range Interpretation Comme nts Red Cell Distribution Width (test code = 07797-8) 12.6 11.7-14.4 [facility] CenterAutomated blood platelet count (count/volume) 2020-07-01 17:48:00* Test Item Value Reference Range Interpretation Comme [facility] Platelet Count (test code = 777-3) 318 140-360 [facility] CenterAutomated blood segmented neutrophil count as percentage of total qrytfuwrtj6451-28-38 17:48:00* Test Item Value Reference Range Interpretation Comme nts Neutrophils (%) (Auto) (test code = 35575-9) 80.8 38.7-80.0 [facility] CenterAutomated blood lymphocyte count as percentage ot total hbhwkonckw0529-77-77 17:48:00* Test Item Value Reference Range Interpretation Comme nts Lymphocytes (%) (Auto) (test code = 736-9) 13.2 18.0-39.1 [facility] CenterAutomated blood monocyte count as percentage of total puajzjbbuf0040-62-29 17:48:00* Test Item Value Reference Range Interpretation Comme nts Monocytes (%) (Auto) (test c ode = 5905-5) 4.2 4.4-11.3 [facility] CenterAutomated blood eosinophil count as percentage of total zgdnphecod1889-33-41 17:48:00* Test Item Value Reference Range Interpretation Comme nts Eosinophils (%) (Auto) (test code = 713-8) 0.3 0.0-6.0 [facility] CenterAutomated blood basophil count as percentage of total qyjzhhluai1824-24-25 17:48:00* Test Item Value Reference Range Interpretation Comme nts Basophils (%) (Auto) (test c ode = 706-2) 0.4 0.0-1.0 [facility] CenterFluoroscopic procedure less than one hour gjaxzeqx9556-12-41 17:48:00* Test Item Value Reference Range Interpretation Comme nts IM GRANULOCYTES % (test code = IM GRANULOCYTES %) 1.1 0.0-1.0 [facility] CenterAutomated blood neutrophil dtchg2470-11-49 17:48:00* Test Item Value Reference Range Interpretation Comme nts Neutrophils # (Auto) (test c ode = 751-8) 9.3 2.1-6.9 [facility] CenterBlood lymphocytes count (number/volume) 2020-07-01 17:48:00* Test Item Value Reference Range Interpretation Comme nts Lymphocytes # (Auto) (test c ode = 06380-6) 1.5 1.0-3.2 [facility] CenterBlood monocytes automated count (number/volume)2020-07-01 17:48:00* Test Item Value Reference Range Interpretation Comme nts Monocytes # (Auto) (test code = 742-7) 0.5 0.2-0.8 [facility] CenterAutomated blood eosinophil nscci1098-40-88 17:48:00* Test Item Value Reference Range Interpretation Comme nts Eosinophils # (Auto) (test c ode = 711-2) 0.0 0.0-0.4 [facility] CenterAutomated blood basophil count (count/volume) 2020-07-01 17:48:00* Test Item Value Reference Range Interpretation Comme nts Basophils # (Auto) (test code = 704-7) 0.1 0.0-0.1 [facility] CenterFluoroscopic procedure less than one hour uvlzknpt1790-77-29 17:48:00* Test Item Value Reference Range Interpretation Comme nts Absolute Immature Granulocyt e (auto (test code = Absolute Immature Granulocyte (auto) 0.13 0-0.1 [facility]ererum or plasma sodium measurement (moles/volume)2020-07-01 17:48:00* Test Item Value Reference Range Interpretation Comme nts Sodium Level (test code = 2951-2) 142 136-145 [facility] Centererum or plasma potassium measurement (moles/volume)2020-07-01 17:48:00* Test Item Value Reference Range Interpretation Comme [facility] Potassium Level (test code = 2823-3) 3.6 3.5-5.1 [facility] Centererum or plasma chloride measurement (moles/volume)2020-07-01 17:48:00* Test Item Value Reference Range Interpretation Comme [facility] Chloride Level (test code = 2075-0) 106 98-107 [facility] Centererum or plasma carbon dioxide, total measurement (moles/volume)2020-07-01 17:48:00* Test Item Value Reference Range Interpretation Comme [facility] Carbon Dioxide Level (test c ode = 2028-9) 25 22-29 [facility] Centererum or plasma anion tie0098-95-49 17:48:00 * Test Item Value Reference Range Interpretation Comme [facility] Anion Gap (test code = 74384-8) 14.6 8-16 [facility] Centererum or plasma urea nitrogen measurement (mass/volume)2020-07-01 17:48:00* Test Item Value Reference Range Interpretation Comme [facility] Blood Urea Nitrogen (test co de = 3094-0) 12 7-26 [facility] Centererum or plasma creatinine measurement (mass/volume)2020-07-01 17:48:00* Test Item Value Reference Range Interpretation Comme [facility] Creatinine (test code = 2160-0) 0.80 0.57-1.11 [facility] Centererum or plasma urea nitrogen/creatinine mass pxjlt7983-33-28 17:48:00* Test Item Value Reference Range Interpretation Comme [facility] BUN/Creatinine Ratio (test c ode = 3097-3) 15 6-25 [facility] CenterEstimated glomerular filtration rate (GFR) ydlongnwgsaof0169-10-59 17:48:00* Test Item Value Reference Range Interpretation Comme [facility] Estimat Glomerular Filtration Rate (test code = 778671015) > 60 See_Comment [Automated mes feli] The system which generated this result transmitted reference range: 60-. The reference range was not used to interpret this result as normal/abnormal. [facility] CenterGlucose pcjrryhhmvg6940-34-44 17:48:00* Test Item Value Reference Range Interpretation Comme nts Glucose Level (test code = CGH5346) 96 74-118 [facility] Centererum or plasma calcium measurement (mass/volume)2020-07-01 17:48:00* Test Item Value Reference Range Interpretation Comme nts Calcium Level (test code = 00755-9) 9.7 8.4-10.2 [facility] Centererum or plasma total bilirubin measurement (mass/volume)2020-07-01 17:48:00* Test Item Value Reference Range Interpretation Comme nts Total Bilirubin (test code = 1975-2) 0.7 0.2-1.2 [facility] CenterUrine color vhftkncavwvzd3799-66-47 17:22:00 * Test Item Value Reference Range Interpretation Comme [facility] Urine Color (test code = 5778-6) YELLOW YELLOW [facility] CenterUrine zhurvzr0115-73-31 17:22:00* Test Item Value Reference Range Interpretation Comme nts Urine Clarity (test code = 16965-6) CLOUDY CLEAR [facility] Centerpecific gravity of Urine by Test strip 2020-07-01 17:22:00* Test Item Value Reference Range Interpretation Comme nts Urine Specific Cropsey (test code = 5811-5) >=1.030 1.010-1.025 [facility] CenterUrine pH measurement by automated test strip 2020-07-01 17:22:00* Test Item Value Reference Range Interpretation Comme nts Urine pH (test code = 43647-7) 5.5 5-7 [facility] CenterUrine leukocyte esterase detection by automated test cxlln8795-40-73 17:22:00* Test Item Value Reference Range Interpretation Comme nts Urine Leukocyte Esterase (te st code = 16822-8) NEGATIVE NEGATIVE [facility] CenterUrine nitrite detection by automated test tzhrm0094-67-86 17:22:00* Test Item Value Reference Range Interpretation Comme nts Urine Nitrite (test code = 74207-2) NEGATIVE NEGATIVE [facility] CenterUrine protein detection by automated test arcno0004-00-28 17:22:00* Test Item Value Reference Range Interpretation Comme nts Urine Protein (test code = 66037-3) TRACE NEGATIVE [facility] CenterUrine glucose detection by automated test pszfq2174-08-07 17:22:00* Test Item Value Reference Range Interpretation Comme nts Urine Glucose (UA) (test cod e = 88207-2) NEGATIVE NEGATIVE [facility] CenterUrine ketones detection by automated test lbzqj1800-25-78 17:22:00* Test Item Value Reference Range Interpretation Comme nts Urine Ketones (test code = 11682-2) TRACE NEGATIVE [facility] CenterUrine urobilinogen measurement by test strip (mass/volume)2020-07-01 17:22:00* Test Item Value Reference Range Interpretation Comme nts Urine Urobilinogen (test cod e = 69851-0) 0.2 0.2-1 [facility] CenterUrine total bilirubin suopgasms0273-46-55 17:22:00* Test Item Value Reference Range Interpretation Comme nts Urine Bilirubin (test code = 1977-8) 1+ NEGATIVE [facility] CenterUrine erythrocytes crxbuapuy1187-57-46 17:22:00* Test Item Value Reference Range Interpretation Comme nts Urine Blood (test code = 52658-3) 3+ NEGATIVE [facility] CenterAutomated urine sediment leukocyte count by microscopy (number/high power field)2020-07-01 17:22:00* Test Item Value Reference Range Interpretation Comme [facility] Urine WBC (test code = 5821-4) 21-50 0-5 [facility] CenterErythrocytes detection in urine sediment by light pndeayaouv3011-25-71 17:22:00* Test Item Value Reference Range Interpretation Comme nts Urine RBC (test code = 58643-0) 21-50 0-5 [facility] CenterBacteria detection in urine sediment by light bhsqpvycla6647-71-73 17:22:00* Test Item Value Reference Range Interpretation Comme nts Urine Bacteria (test code = 60763-3) MANY NONE [facility] CenterEpithelial cells detection in urine sediment by light dcsrbpcxmi2256-31-60 17:22:00* Test Item Value Reference Range Interpretation Comme nts Urine Epithelial Cells (test code = 63845-8) MANY NONE [facility] CenterTransitional cells detection in urine sediment by light bjeplbceas8176-71-08 17:22:00* Test Item Value Reference Range Interpretation Comme nts Urine Transitional Epithelia l Cells (test code = 8249-5) FEW NONE [facility] CenterMucus detection in urine sediment by light qgpsqklhgl3279-98-50 17:22:00* Test Item Value Reference Range Interpretation Comme nts Urine Mucus (test code = 8247-9) MANY RARE [facility] CenterUrine human chorionic gonadotropin (hCG) ukvoualqj7318-03-57 17:22:00* Test Item Value Reference Range Interpretation Comme nts Urine Test (test c ode = 2106-3) NEGATIVE NEGATIVE [facility] CenterBASIC METABOLIC [id number] 13:07:00* Test Item Value Reference Range Interpretation Comme nts SODIUM (test code = NA) 144 mmol/L 135-148 N POTASSIUM (test code = K) 3.7 mmol/L 3.5-5.1 N CHLORIDE (test code = CL) 106 mmol/L 101-109 N CARBON DIOXIDE (test code = CO2) 26.4 mmol/L 21-32 N ANION GAP (test code = GAP) 15 mmol/L 10-20 N GLUCOSE (test code = GLU) 94 mg/dL 74-106 N BLOOD UREA NITROGEN (test code = BUN) 9 mg/dL 3-21 N GLOMERULAR FILTRATION RATE (test code = GFR) > 60 mL/min See_Comment Estimated GFR by using Modified MDRD formula.Chronic kidney disease is defined as either kidney damageor GFR <60 mL/min/1.73 m2 for >3 months. [Automated message] The system which generated this result transmitted reference range: >=60. The reference range was not used to interpret this result as normal/abnormal. CREATININE (test code = CREAT) 0.84 mg/dL 0.55-1.3 N BUN/CREATININE RATIO (test code = BUN/CREA) 10.7 10-20 N CALCIUM (test code = CA) 8.4 mg/dL 8.4-10.2 N HEPATIC FUNCTION [id number] 13:07:00* Test Item Value Reference Range Interpretation Comme nts TOTAL PROTEIN (test code = PROT) 6.8 g/dL 6.5-8.4 N ALBUMIN (test code = ALB) 3.6 g/dL 3.4-4.8 N GLOBULIN (test code = GLOB) 3.2 G/DL 1-10 N ALBUMIN/GLOBULIN RATIO (test code = A/G) 1.1 RATIO 0.75-1.50 N BILIRUBIN TOTAL (test code = BILT) 0.30 mg/dL 0.0-1.0 N BILIRUBIN DIRECT (test code = BILD) 0.10 mg/dL 0.0-0.30 N SGOT/AST (test code = AST) 8 U/L 6-32 N SGPT/ALT (test code = ALT) 15 U/L 12-78 N Note: Change in REFERENCE RANGE due to new reagent method. ALKALINE PHOSPHATASE TOTAL (test code = ALKP) 64 U/L 38-126 N [id number] 13:07:00* Test Item Value Reference Range Interpretation Comme nts LIPASE (test code = LIP) 159 U/L 128-270 N HCG SERUM [id number] 13:07:00* Test Item Value Reference Range Interpretation Comme nts HCG SERUM QUAL (test code = HCGQL) NEGATIVE NEGATIVE This HCGQL test is NOT applicable for MALE patients.Check with nurse about probable order error.If Tumor Marker Test needed, nurse should order test "HCGTU"(Test #550.53770) URINALYSIS [id number] 13:03:00* Test Item Value Reference Range Interpretation Comme nts UA COLOR (test code = COLU) YELLOW YELLOW UA APPEARANCE (test code = APPU) clear CLEAR UA GLUCOSE DIPSTICK (test code = DGLUU) norm mg/dL NEGATIVE UA BILIRUBIN DIPSTICK (test code = BILU) NEGATIVE mg/dL NEGATIVE UA KETONE DIPSTICK (test code = KETU) neg mg/dL NEGATIVE UA SPECIFIC GRAVITY (test code = SGU) 1.025 1.001-1.035 UA BLOOD DIPSTICK (test code = KAYLA) neg Joseph/uL NEGATIVE UA PH DIPSTICK (test code = MICHAEL) 5.0 5.0-8.0 UA PROTEIN DIPSTICK (test code = PROU) neg mg/dL Neg-15 UA UROBILINIOGEN DIPSTICK (test code = URO) 1 mg/dL 0.0-0.2 A UA NITRITE DIPSTICK (test code = AURE) NEGATIVE NEGATIVE UA LEUKOCYTE ESTERASE DIPSTICK (test code = LEUU) 25 Calin/uL (Trace) uL NEGATIVE A UA WBC (test code = WBCU) 0-5 per HPF 0-5 UA RBC (test code = RBCU) 0-3 per HPF 0-5 UA EPITHELIAL CELLS (test code = EPIU) Moderate (5-10/hpf) per HPF Few UA BACTERIA (test code = BACU) FEW per HPF NONE Urine Source? Clean CatchURINALYSIS [id number] 13:02:00* Test Item Value Reference Range Interpretation Comme nts UA COLOR (test code = COLU) YELLOW YELLOW UA APPEARANCE (test code = APPU) clear CLEAR UA GLUCOSE DIPSTICK (test code = DGLUU) norm mg/dL NEGATIVE UA BILIRUBIN DIPSTICK (test code = BILU) NEGATIVE mg/dL NEGATIVE UA KETONE DIPSTICK (test code = KETU) neg mg/dL NEGATIVE UA SPECIFIC GRAVITY (test code = SGU) 1.025 1.001-1.035 UA BLOOD DIPSTICK (test code = KAYLA) neg Joseph/uL NEGATIVE UA PH DIPSTICK (test code = MICHAEL) 5.0 5.0-8.0 UA PROTEIN DIPSTICK (test code = PROU) neg mg/dL Neg-15 UA UROBILINIOGEN DIPSTICK (test code = URO) 1 mg/dL 0.0-0.2 A UA NITRITE DIPSTICK (test code = AURE) NEGATIVE NEGATIVE UA LEUKOCYTE ESTERASE DIPSTICK (test code = LEUU) 25 Calin/uL (Trace) uL NEGATIVE A UA WBC (test code = WBCU) 0-5 per HPF 0-5 UA RBC (test code = RBCU) 0-3 per HPF 0-5 UA EPITHELIAL CELLS (test code = EPIU) per HPF Few UA BACTERIA (test code = BACU) per HPF NONE Urine Source? Clean CatchBASIC METABOLIC [id number] 12:57:00* Test Item Value Reference Range Interpretation Comme nts SODIUM (test code = NA) 144 mmol/L 135-148 N POTASSIUM (test code = K) 3.7 mmol/L 3.5-5.1 N CHLORIDE (test code = CL) 106 mmol/L 101-109 N CARBON DIOXIDE (test code = CO2) 26.4 mmol/L 21-32 N ANION GAP (test code = GAP) 15 mmol/L 10-20 N GLUCOSE (test code = GLU) 94 mg/dL 74-106 N BLOOD UREA NITROGEN (test code = BUN) 9 mg/dL 3-21 N GLOMERULAR FILTRATION RATE (test code = GFR) > 60 mL/min See_Comment Estimated GFR by using Modified MDRD formula.Chronic kidney disease is defined as either kidney damageor GFR <60 mL/min/1.73 m2 for >3 months. [Automated message] The system which generated this result transmitted reference range: >=60. The reference range was not used to interpret this result as normal/abnormal. CREATININE (test code = CREAT) 0.84 mg/dL 0.55-1.3 N BUN/CREATININE RATIO (test code = BUN/CREA) 10.7 10-20 N CALCIUM (test code = CA) 8.4 mg/dL 8.4-10.2 N HEPATIC FUNCTION [id number] 12:57:00* Test Item Value Reference Range Interpretation Comme nts TOTAL PROTEIN (test code = PROT) gram/dL 6.4-8.2 ALBUMIN (test code = ALB) g/dL 3.4-5.0 GLOBULIN (test code = GLOB) g/dL 2.7-4.2 ALBUMIN/GLOBULIN RATIO (test code = A/G) 0.75-1.50 BILIRUBIN TOTAL (test code = BILT) mg/dL 0.2-1.2 BILIRUBIN DIRECT (test code = BILD) mg/dL 0.0-0.20 SGOT/AST (test code = AST) IUnit/L 15-37 SGPT/ALT (test code = ALT) U/L 10-69 ALKALINE PHOSPHATASE TOTAL ( test code = ALKP) IUnit/L 45-117 [id number] 12:57:00* Test Item Value Reference Range Interpretation Comme nts LIPASE (test code = LIP) Unit/L 144-286 HCG SERUM [id number] 12:57:00* Test Item Value Reference Range Interpretation Comme nts HCG SERUM QUAL (test code = HCGQL) NEGATIVE BASIC METABOLIC [id number] 12:57:00* Test Item Value Reference Range Interpretation Comme nts SODIUM (test code = NA) 144 mmol/L 135-148 N POTASSIUM (test code = K) 3.7 mmol/L 3.5-5.1 N CHLORIDE (test code = CL) 106 mmol/L 101-109 N CARBON DIOXIDE (test code = CO2) 26.4 mmol/L 21-32 N ANION GAP (test code = GAP) 15 mmol/L 10-20 N GLUCOSE (test code = GLU) 94 mg/dL 74-106 N BLOOD UREA NITROGEN (test code = BUN) 9 mg/dL 3-21 N GLOMERULAR FILTRATION RATE (test code = GFR) > 60 mL/min See_Comment Estimated GFR by using Modified MDRD formula.Chronic kidney disease is defined as either kidney damageor GFR <60 mL/min/1.73 m2 for >3 months. [Automated message] The system which generated this result transmitted reference range: >=60. The reference range was not used to interpret this result as normal/abnormal. CREATININE (test code = CREAT) 0.84 mg/dL 0.55-1.3 N BUN/CREATININE RATIO (test code = BUN/CREA) 10.7 10-20 N CALCIUM (test code = CA) 8.4 mg/dL 8.4-10.2 N HEPATIC FUNCTION [id number] 12:57:00* Test Item Value Reference Range Interpretation Comme nts TOTAL PROTEIN (test code = PROT) gram/dL 6.4-8.2 ALBUMIN (test code = ALB) g/dL 3.4-5.0 GLOBULIN (test code = GLOB) g/dL 2.7-4.2 ALBUMIN/GLOBULIN RATIO (test code = A/G) 0.75-1.50 BILIRUBIN TOTAL (test code = BILT) mg/dL 0.2-1.2 BILIRUBIN DIRECT (test code = BILD) mg/dL 0.0-0.20 SGOT/AST (test code = AST) IUnit/L 15-37 SGPT/ALT (test code = ALT) U/L 10-69 ALKALINE PHOSPHATASE TOTAL ( test code = ALKP) IUnit/L 45-117 [id number] 12:57:00* Test Item Value Reference Range Interpretation Comme nts LIPASE (test code = LIP) Unit/L 144-286 HCG SERUM [id number] 12:57:00* Test Item Value Reference Range Interpretation Comme nts HCG SERUM QUAL (test code = HCGQL) NEGATIVE NEGATIVE This HCGQL test is NOT applicable for MALE patients.Check with nurse about probable order error.If Tumor Marker Test needed, nurse should order test "HCGTU"(Test #550.84581) CBC W/O [id number] 12:54:00* Test Item Value Reference Range Interpretation Comme nts WHITE BLOOD CELL (test code = WBC) 6.3 K/mm3 4.5-12.5 N RED BLOOD CELL (test code = RBC) 3.96 mill/mm3 3.7-5.2 N HEMOGLOBIN (test code = HGB) 12.2 gram/dL 11.5-15.5 N HEMATOCRIT (test code = HCT) 36.0 % 36.0-46.0 N MEAN CELL VOLUME (test code = MCV) 90.9 fL 80-98 N MEAN CELL HGB (test code = MCH) 30.8 picogram 27.0-33.0 N MEAN CELL HGB CONCETRATION (test code = MCHC) 33.9 gram/dL 33.0-36.0 N RED CELL DISTRIBUTION WIDTH (test code = RDW) 12.8 % 11.6-16.2 N RED CELL DISTRIBUTION WIDTH SD (test code = RDW-SD) 42.6 fL 37.0-51.0 N PLATELET COUNT (test code = PLT) 253 K/mm3 150-450 N MEAN PLATELET VOLUME (test c ode = MPV) 10.0 fL 6.7-11.0 N Notes Date/Time Note Provider Source 2022-03-25 22:25:00 [id number]:25:90348 [id number] [address] PATIENT NAME: JULIETTE HERNANDEZ ADMIT DATE: 03/25/22ACCOUNT NO: [id number] ROOM NO: AGE: 22 REPORT TYPE: eELECTROCARDIOGRAM SEX: F ADMITTING PHYSICIAN: ATTENDING PHYSICIAN: Order:[id number] Reason : CP Test Date/Time Stamp:ThuMar 25 2022 22:25:35Blood Pressure : / mmHGVent. Rate : 101 BPM Atrial Rate : 101 BPM P-R Int : 130 ms QRS Dur : 090 ms QT Int : 322 ms P-R-T Axes : 062 092 052 degrees QTc Int : 417 ms Sinus tachycardiaPossible Left atrial enlargementRightward axisRSR' or QR pattern in V1 suggests right ventricular conduction delayNonspecific T wave abnormalityAbnormal ECGNo previous ECGs availableConfirmed by Ondina Valerio ([id number]) on 03/28/2022 7:43:49 AM Referred By: Self Referred Confirmed by:Ondina Valerio at 0743 PATIENT NAME: JULIETTE HERNANDEZ .[id number] AVAvailable for patient [id number]:44:21 [facility] 2021-01-21 20:36:00 [id number]+iWmhMeHhfv [id number]5050-44-09C75:36:00 [facility] ([facility]ENC[facility] PROVIDER REPORTREPORT#:[id number] REPORT STATUS: SignedDATE:01/21/21 TIME: 2035 PATIENT: ANTONIO HERNANDEZ UNIT #: [id number]#: [id number] ROOM/BED:AGE: 20 SEX: F PCP PHYS: No Primary or Family PhysicianSERVICE AUTHOR: Shamir Haley MD * ALL edits or amendments must be made on the electronic/computer document * HPI-Abd Pain F Under 40 GeneralInitial Greet Date/Time 01/21/212019 PresentationChief Complaint Vomiting moderateSudden in Onset? NoOnset Occurred Days ago (2)Symptom Duration Since onsetLocation DiffuseRadiationDoes not radiate. Migration/Movement NoneSeverity: Onset ModerateSeverity: Current ModerateExacerbated by Nothing Free Text HPI NotesFree Text HPI [id number]-xzix-gdw female with no past medical history, 19 weeks and 2 days byultrasound from her [employer], complains of nausea and vomiting starting 2 days ago. In the past 24 hours, she has vomited 10 times, nonbloody. She complains of diffuse abdominal pain when she vomits but does not have pain in between episodes. She complains of dysuria x1 week. She denies back pain and diarrhea. Denies fever, cough, shortness of breath. Risk-Abd Pain F Under 40)( Ectopic Risk factors reviewed Review of Systems ROS StatementsAll systems rev neg except as marked. Focused Review of SystemsConstitutionalDenies: Fever. RespiratoryDenies: Cough, non-productive, Cough, productive. CardiovascularDenies: Chest pain. GIReports: Abdominal pain, Nausea, Vomiting. Denies: Diarrhea. Past Medical History - AdultStated Complaint VOMTING, NAUSEA. ABDOMINAL PAIN 19WKS 2 DAAllergiesCoded Allergies:No Known Allergies (01/21/21) Home MedicationsActive ScriptsSUCRALFATE (CARAFATE 1 GM/10 ML) 1 GM PO AC HS SUCRALFATE (CARAFATE 1 GM/10 ML) 1 GM PO AC HS #400 ML Prov: 06/19/20ONDANSETRON ODT (ZOFRAN ODT) 4 MG PO Q6H PRN PRN NAUSEA/VOMITING ONDANSETRON ODT (ZOFRAN ODT) 4 MG PO Q6H PRN PRN NAUSEA/VOMITING #15 TABS Prov: 06/19/20 Pt reports no significant: Past medical history, Past surgical historySmoking status: Smoking status for patients 13 years old or older: Never Smoker Physical Exam Vital SignsVital SignsFirst Documented: Result Date Time Pulse Ox 95 01/21 2013 B/P 112/74 01/21 2013 B/P Mean 86 01/21 2013 O2 Delivery Room air 01/21 2013 Temp 36.7 01/21 2013 Pulse 99 01/21 2013 Resp 16 01/21 2013 Last Documented: Result Date Time Pulse Ox 98 01/21 2250 B/P 119/63 01/21 2250 B/P Mean 81 01/21 2250 Temp 36.8 01/21 2250 Pulse 82 01/21 2250 Resp 16 01/21 2250 O2 Delivery Room air 01/21 2013 Review of Vital Signs Reviewed Focused PEGeneral/Const General/Const Awake, Alert, No acute distressEyes Eyes PERRL, EOMI, No periorbital rednessEars/Nose/Throat Ears/Nose/Throat Airway patent, Mucous membranes moist, Pharynx NLResp/Chest Respiratory/Chest Breath sounds NL, Breath sounds = bilat, No respiratory distressCardiovascular Cardiovascular Heart rate NL, Regular rhythm, Heart sounds NLAbdomen/GI Abdomen/GI Soft Text/Dict NotesGravid, abdomen soft nontender. Normal bowel soundsMS Back Back No midline vertebral tend, No paraspinal tenderness, No CVA tendernessSkin Skin Color NL, No rash, WarmNeurologic Neurologic Oriented X3, Speech NL, No motor deficits Interpretation Diagnostics Lab Results InterpretationResultsLaboratory Tests 01/21/212031:[Embedded Image Not Available]Laboratory Tests: 01/21 Chemistry Sodium (136 - 145 mmol/L) 139 Potassium (3.5 - 5.1 mmol/L) 3.6 Chloride (101 - 109 mmol/L) 104 Carbon Dioxide (21 - 32 mmol/L) 24.9 Anion Gap (10 - 20 mmol/L) 14 BUN (3 - 21 mg/dL) 8 Creatinine (0.55 - 1.3 mg/dL) 0.59 Glomerular Filtr Rate (>=60 mL/min) > 60 BUN/Creatinine Ratio (10 - 20) 13.6 Glucose (74 - 106 mg/dL) 85 Calcium (8.4 - 10.2 mg/dL) 8.6 Total Bilirubin (0.0 - 1.0 mg/dL) 0.40 Direct Bilirubin (0.0 - 0.30 mg/dL) 0.20 AST (6 - 32 U/L) 21 ALT (12 - 78 U/L) 32 Total Alk Phosphatase (38 - 126 U/L) 51 Total Protein (6.5 - 8.4 g/dL) 7.3 Albumin (3.4 - 4.8 g/dL) 3.2 L Globulin (1 - 10 G/DL) 4.1 Albumin/Globulin Ratio (0.75 - 1.50 RATIO) 0.78 Lipase (128 - 270 U/L) 59 L Hematology WBC (4.5 - 12.5 K/mm3) 7.8 RBC (3.7 - 5.2 mill/mm3) 3.81 Hgb (11.5 - 15.5 gram/dL) 11.6 Hct (36.0 - 46.0 %) 33.9 L MCV (80 - 98 fL) 89.0 MCH (27.0 - 33.0 picogram) 30.4 MCHC (33.0 - 36.0 gram/dL) 34.2 RDW (11.6 - 16.2 %) 13.0 RDW Std Deviation (37.0 - 51.0 fL) 42.7 Plt Count (150 - 450 K/mm3) 262 MPV (6.7 - 11.0 fL) 9.6 Urines Urine Color (YELLOW) DARK YELLOW H Urine Appearance (CLEAR) SLIGHT CLOUDY H Urine pH (5.0 - 8.0) 6.0 Ur Specific Cropsey (1.001 - 1.035) 1.025 Urine Protein (Neg - 15 mg/dL) 30 (1+) H Urine Glucose (UA) (NEGATIVE mg/dL) norm Urine Ketones (NEGATIVE mg/dL) 150 (4+) H Urine Blood (NEGATIVE Joseph/uL) neg Urine Nitrite (NEGATIVE) NEGATIVE Urine Bilirubin (NEGATIVE mg/dL) NEGATIVE Urine Urobilinogen (0.0 - 0.2 mg/dL) 1 H Ur Leukocyte Esterase (NEGATIVE uL) 500 Calin/uL (3+) H Urine RBC (0 - 5 per HPF) NONE SEEN Urine WBC (0 - 5 per HPF) 5-10 H Ur Epithelial Cells (Few per HPF) Many (>10/hpf) H Urine Bacteria (NONE per HPF) MANY H Lab StatementLaboratory studies reviewed and considered in the medical decision-making. Point of Care TestingPulse Oximetry Pulse Ox % 95 On: Room air Interpretation Interpreted by me, Pulse oximetry normal Time 2038 Re-Evaluation [facility] )( Re-Evaluation/Progress #1Text/Dict NotePatient is feeling much better after Phenergan. She is not nauseous anymore. Her abdomen is soft and nontender. She is p.o. tolerant. She was given return precautions and voiced understanding.Time of Re-Eval 2236)( Re-Eval Status Improved ED CourseMedication(s) OrderedMedication(s) Ordered:Anti-Infective Agents Sig/Huseyin Start time Last Medication Dose Route Stop Time Status Admin Ceftriaxone Sodium 1,000 MG X1ED STA 01/21 2213 DC 01/21 Sodium Chloride 10 ML IV 01/21 Central Nervous System Agents Sig/Huseyin Start time Last Medication Dose Route Stop Time Status Admin Promethazine HCl 12.5 MG X1ED STA 01/21 2025 DC 01/21 IV 01/21 Electrolytic, Caloric, And Eric Sig/Huseyin Start time Last Medication Dose Route Stop Time Status Admin Sodium Chloride 1,000 ML X1ED STA 01/21 2025 DC 01/21 IV 01/21 Patient Discharge Departure Vital Signs/ConditionVital SignsFirst Documented: Result Date Time Pulse Ox 95 01/21 2013 B/P 112/74 01/21 2013 B/P Mean 86 01/21 2013 O2 Delivery Room air 01/21 2013 Temp 36.7 01/21 2013 Pulse 99 01/21 2013 Resp 16 01/21 2013 Last Documented: Result Date Time Pulse Ox 98 01/21 2250 B/P 119/63 01/21 2250 B/P Mean 81 01/21 2250 Temp 36.8 01/21 2250 Pulse 82 01/21 2250 Resp 16 01/21 2250 O2 Delivery Room air 01/21 2013 All vital signs available at the time of this entry have been reviewed. Condition Stable, Improved Clinical ImpressionClinical ImpressionPrimary Impression: VomitingSecondary Impressions: UTI (urinary tract infection)Time of Impression 2237 Disposition DecisionDischarge )( Discharged to Home Yes )( Time 2237 )( Date 01/21/21 Discharge/Care PlanCounseled Regarding Diagnosis, Lab results, Prescriptions, Need for follow-up, When to return to ED(Auto) PrescriptionsCurrent Visit ScriptsPROMETHAZINE (PHENERGAN) 12.5 MG PO Q6H PRN PRN VOMITING PROMETHAZINE (PHENERGAN) 12.5 MG PO Q6H PRN PRN VOMITING #20 TABS NITROFURANTOIN/NITROFURAN MAC (MACROBID) 100 MG PO BID NITROFURANTOIN/NITROFURAN MAC (MACROBID) 100 MG PO BID #14 CAPS Until finished. Take with food. Patient Instructions ED Vomiting (Adult), Urinary Tract Infections in WomenReferrals PRIMARY CARE: 2-3 Days Quality MeasuresBP F/U for HTN BP in normal rangeSmoking Cessation Screened, non user at 0[address]RPT #:[id number] OF REPORTEDEmergency department [id number]:36:00V.[id number] ilable for patient [id number]:33:10 [facility] 2020-06-19 12:27:00 [id number] [id number]:2 7:00 [facility] ([facility])EMERGENCY PROVIDER REPORTREPORT#:[id number] REPORT STATUS: SignedDATE:06/19/20 TIME: 1227 PATIENT: ANTONIO HERNANDEZ UNIT #: [id number]#: [id number] ROOM/BED:AGE: 20 SEX: F PCP PHYS: No Primary or Family PhysicianSERVICE AUTHOR: Elijah Mcconnell TAPE STRINGER * ALL edits or amendments must be made on the electronic/computer document * HPI-Abd Pain F Under 40 GeneralConfirmed Patient YesPatient Type New patientInitial Greet Date/Time 06/19/20 1200 PresentationChief Complaint Abdominal painHx Obtained From PatientSudden in Onset? NoOnset Occurred 3 MONTHS AGOProgression since Onset IntermittentContext of Onset REPORTS SHE DRINKS 2 SHOTS OF TEQUILA EVERY DAY.Location EpigastricQuality BurningRadiationNo: Does not radiate. Severity: Current Pain level 4 out of 10Associated withReports: Vomiting (AT TIMES PER PT). Denies: Anorexia, Back pain, Chest pain, Chills, Constipation, Diarrhea, Dysuria, Fever, Hematemesis, Hematochezia, Hematuria, Melena, Nausea, Shortness of breath, Urinary frequency, Urinary retention, Urinary tract symptoms, Vaginal bleeding, Vaginal discharge. ContextPregnancy/Sexual Hx Last Menstrual Period 06/06/20 Free Text HPI NotesFree Text HPI NotesDenies fever, trauma, chest pain, shortness of breath, dizziness, diarrhea, pelvic pain, vaginal bleeding, vaginal discharge, flank pain, or urinary symptoms. Risk-Abd Pain F Under 40)( Ectopic Risk factors reviewed Review of Systems ROS StatementsAll systems rev neg except as marked. Focused Review of SystemsGIReports: Abdominal pain, Nausea, Vomiting (X 1 ). Past Medical History - AdultStated Complaint ABDOMINAL PAINAllergiesCoded Allergies:No Known Allergies (10/07/14) Home MedicationsDiscontinued Reported MedicationsIBUPROFEN (MOTRIN) 600 MG PO Q6H PRN PRN PAIN Pt reports no significant: Past medical history, Past surgical historySmoking status: Smoking status for patients 13 years old or older: Current every day smoker Date last smoked: 06/19/20 Packs per day: 1 Physical Exam Vital SignsVital SignsFirst Documented: Result Date Time Pulse Ox 99 06/19 1200 B/P 105/59 06/19 1200 B/P Mean 74 06/19 1200 Temp 98.1 06/19 1200 Pulse 67 06/19 1200 Resp 18 06/19 1200 O2 Delivery Room air 06/19 1332 Last Documented: Result Date Time Pulse Ox 100 06/19 1332 B/P 98/52 06/19 1332 B/P Mean 67 06/19 1332 O2 Delivery Room air 06/19 1332 Temp 98.5 06/19 1332 Pulse 58 06/19 1332 Resp 16 06/19 1332 Review of Vital Signs Reviewed Focused PEGeneral/Const General/Const Awake, Alert, Well appearingMS Head Head NormocephalicEyes Eyes PERRLEars/Nose/Throat Ears/Nose/Throat Airway patent, Mucous membranes moist, Pharynx NLResp/Chest Respiratory/Chest Breath sounds NL, Breath sounds = bilat, No respiratory distress, No rales, No rhonchi, No wheezingCardiovascular Cardiovascular Heart rate NL, Regular rhythm, Heart sounds NL, Peripheral circulation NLAbdomen/GI Abdomen/GI Atraumatic, Soft, McBurney's non-tender, No guarding, No rebound, BS normoactive, No distention, No hernia, No palpable mass, No pulsatile mass Tenderness/Guarding/Rebound Tender epigastric. Negative: Meredith's sign positive, Guarding voluntary, Guarding involuntary, Rebound localized, Rebound diffuse, Rigid to palpation. MS Back Back Inspection NL, Non-tender, No CVA tendernessSkin Skin Color NL, Warm, Dry, Turgor NLGenitourinary General Exam deferredRectum Rectum/Perineum Exam deferredNeurologic Neurologic Oriented X3, Speech NL, No motor deficits, No sensory deficits Interpretation Diagnostics Lab Results InterpretationResultsLaboratory Tests 06/19/20 1215:[Embedded Image Not Available]Laboratory Tests: 06/19 1214 Chemistry Sodium (135 - 148 mmol/L) 144 Potassium (3.5 - 5.1 mmol/L) 3.7 Chloride (101 - 109 mmol/L) 106 Carbon Dioxide (21 - 32 mmol/L) 26.4 Anion Gap (10 - 20 mmol/L) 15 BUN (3 - 21 mg/dL) 9 Creatinine (0.55 - 1.3 mg/dL) 0.84 Glomerular Filtr Rate (>=60 mL/min) > 60 BUN/Creatinine Ratio (10 - 20) 10.7 Glucose (74 - 106 mg/dL) 94 Calcium (8.4 - 10.2 mg/dL) 8.4 Total Bilirubin (0.0 - 1.0 mg/dL) 0.30 Direct Bilirubin (0.0 - 0.30 mg/dL) 0.10 AST (6 - 32 U/L) 8 ALT (12 - 78 U/L) 15 Total Alk Phosphatase (38 - 126 U/L) 64 Total Protein (6.5 - 8.4 g/dL) 6.8 Albumin (3.4 - 4.8 g/dL) 3.6 Globulin (1 - 10 G/DL) 3.2 Albumin/Globulin Ratio (0.75 - 1.50 RATIO) 1.1 Lipase (128 - 270 U/L) 159 Serum , Qual (NEGATIVE) NEGATIVE Hematology WBC (4.5 - 12.5 K/mm3) 6.3 RBC (3.7 - 5.2 mill/mm3) 3.96 Hgb (11.5 - 15.5 gram/dL) 12.2 Hct (36.0 - 46.0 %) 36.0 MCV (80 - 98 fL) 90.9 MCH (27.0 - 33.0 picogram) 30.8 MCHC (33.0 - 36.0 gram/dL) 33.9 RDW (11.6 - 16.2 %) 12.8 RDW Std Deviation (37.0 - 51.0 fL) 42.6 Plt Count (150 - 450 K/mm3) 253 MPV (6.7 - 11.0 fL) 10.0 Urines Urine Color (YELLOW) YELLOW Urine Appearance (CLEAR) clear Urine pH (5.0 - 8.0) 5.0 Ur Specific Cropsey (1.001 - 1.035) 1.025 Urine Protein (Neg - 15 mg/dL) neg Urine Glucose (UA) (NEGATIVE mg/dL) norm Urine Ketones (NEGATIVE mg/dL) neg Urine Blood (NEGATIVE Joseph/uL) neg Urine Nitrite (NEGATIVE) NEGATIVE Urine Bilirubin (NEGATIVE mg/dL) NEGATIVE Urine Urobilinogen (0.0 - 0.2 mg/dL) 1 H Ur Leukocyte Esterase (NEGATIVE uL) 25 Calin/uL (Trace) H Urine RBC (0 - 5 per HPF) 0-3 Urine WBC (0 - 5 per HPF) 0-5 Ur Epithelial Cells (Few per HPF) Moderate (5-10/hpf) Urine Bacteria (NONE per HPF) FEW Lab StatementLaboratory studies reviewed and considered in the medical decision-making. Point of Care TestingPulse Oximetry Pulse Ox % 99 On: Room air Interpretation Interpreted by dc Time 1205 Re-Evaluation MDM Free Text MDM NotesFree Text MDM NotesUnremarkable abdominal work-up. No further labs or other diagnostics needed. The patient is discharged home with supportive care, a plan for symptom management/medication(s), and follow-up instructions that detail what to expect over the next 48 hours and what symptoms should prompt immediate return to the ED. Follow-up instructions have been explained in detail to the patient, and theinstructions have been provided in written format. The patient is comfortable with the plan of care and has expressed an understanding of the discharge instructions. The patient and/or caregivers are aware that any significant change in condition or worsening of symptoms should prompt an immediate return to this or the closest emergency department or a call to 911. )( Re-Evaluation/Progress #1Time of Re-Eval 1305)( Re-Eval Status ImprovedRe-Eval Abdomen Soft, Non-tender, No guarding, No rebound, BS normoactive, McBurney's non-tender, No distentionPain Re-Evaluation Pain improvedPlan Post Re-Eval Plan discharge ED CourseMedication(s) OrderedMedication(s) Ordered:Autonomic Drugs Sig/Huseyin Start time Last Medication Dose Route Stop Time Status Admin Belladonna Alkaloids/ 5 ML X1ED STA 06/19 1223 DC 06/19 Phenobarbital PO 06/19 1224 1239 Cardiovascular Drugs Sig/Huseyin Start time Last Medication Dose Route Stop Time Status Admin Lidocaine HCl 15 ML X1ED STA 06/19 1222 DC 06/19 PO 06/19 1223 1240 Gastrointestinal Drugs Sig/Huseyin Start time Last Medication Dose Route Stop Time Status Admin Al Hydrox/Mg Hydrox/ 30 ML X1ED STA 06/19 1222 DC 06/19 Simethicone PO 06/19 1223 1240 Patient Discharge Departure Vital Signs/ConditionVital SignsFirst Documented: Result Date Time Pulse Ox 99 06/19 1200 B/P 105/59 06/19 1200 B/P Mean 74 06/19 1200 Temp 98.1 06/19 1200 Pulse 67 06/19 1200 Resp 18 06/19 1200 O2 Delivery Room air 06/19 1332 Last Documented: Result Date Time Pulse Ox 100 06/19 1332 B/P 98/52 06/19 1332 B/P Mean 67 06/19 1332 O2 Delivery Room air 06/19 1332 Temp 98.5 06/19 1332 Pulse 58 06/19 1332 Resp 16 06/19 1332 All vital signs available at the time of this entry have been reviewed. Condition Stable Clinical ImpressionClinical ImpressionPrimary Impression: Gastritis Disposition DecisionDischarge )( Discharged to Home Yes )( Time 1311 )( Date 06/19/20 Discharge/Care PlanCounseled Regarding Diagnosis, Lab results, Prescriptions, Need for follow-up, When to return to EDPrescriptionsCARAFATE, ZOFRAN(Auto) PrescriptionsCurrent Visit ScriptsSUCRALFATE (CARAFATE 1 GM/10 ML) 1 GM PO AC HS SUCRALFATE (CARAFATE 1 GM/10 ML) 1 GM PO AC HS #400 ML 1 GM = 10ML ONDANSETRON ODT (ZOFRAN ODT) 4 MG PO Q6H PRN PRN NAUSEA/VOMITING ONDANSETRON ODT (ZOFRAN ODT) 4 MG PO Q6H PRN PRN NAUSEA/VOMITING #15 TABS Prescriptions Reviewed Risks, Benefits, Alternative treatmentPatient Instructions ED PEPTIC ULCER vs GASTRITISAdditional InstructionsPLEASE STOP DRINKING TEQUILA AND SMOKING IN ORDER TO HAVE LESS ABD PAIN. YOU SHOULD REALLY FOLLOW UP WITH A GI DOCTOR.Randy Miller MD: 2-3 Days Departure FormsWORK/SCHOOL EXCUSE VARIABLE May return to work/school 06/21/20 Discharge NoteI have spoken with the patient and/or caregivers. I have explained the patient'scondition, diagnoses and treatment plan based on the information available to meat this time. I have answered the patient's and/or caregiver's questions and addressed any concerns. The patient and/or caregivers have as good an understanding of the patient's diagnosis, condition and treatment plan as can beexpected at this point. The vital signs have been stable. The patient's condition is stable and appropriate for discharge from the emergency department. The patient will pursue further outpatient evaluation with the primary care physician or other designated or consulting physician as outlined in the discharge instructions. The patient and/or caregivers are agreeable to this planof care and follow-up instructions have been explained in detail. The patient and/or caregivers have received these instructions in written format and have expressed an understanding of the discharge instructions. The patient and/or caregivers are aware that any significant change in condition or worsening of symptoms should prompt an immediate return to this or the closest emergency department or a call to 911. Quality MeasuresBP F/U for HTN BP in normal rangePreg Test for Women w/Abd Pain Female age 14-50, Any preg test orderedTobacco Screening/Cessation 18 years or older, Tobacco user, Counseled 3-10 minutes at 1344RPT #:[id number] OF REPORTEDEmergency department [id number]:27:00V.[id number] ilable for patient [id number]:45:09 [facility] 2020-06-19 12:27:00 [id number] /[id number]/[id number]:2 7:00 [facility]EM[facility] PROVID[facility] REPORTREPORT#:[id number] REPORT STATUS: SignedDATE:06/19/20 TIME: 122 PATIENT: ANTONIO HERNANDEZ UNIT #: [id number]#: [id number] ROOM/BED:AGE: 20 SEX: F PCP PHYS: No Primary or Family PhysicianSERVICE AUTHOR: Elijah Mcconnell TAPE STRINGER * ALL edits or amendments must be made on the electronic/computer document * Elijah Mcconnell 06/19/20 1227:HPI-Abd Pain F Under 40 GeneralConfirmed Patient YesPatient Type New patientInitial Greet Date/Time 06/19/20 1200 PresentationChief Complaint Abdominal painHx Obtained From PatientSudden in Onset? NoOnset Occurred 3 MONTHS AGOProgression since Onset IntermittentContext of Onset REPORTS SHE DRINKS 2 SHOTS OF TEQUILA EVERY DAY.Location EpigastricQuality BurningRadiationNo: Does not radiate. Severity: Current Pain level 4 out of 10Associated withReports: Vomiting (AT TIMES PER PT). Denies: Anorexia, Back pain, Chest pain, Chills, Constipation, Diarrhea, Dysuria, Fever, Hematemesis, Hematochezia, Hematuria, Melena, Nausea, Shortness of breath, Urinary frequency, Urinary retention, Urinary tract symptoms, Vaginal bleeding, Vaginal discharge. ContextPregnancy/Sexual Hx Last Menstrual Period 06/06/20 Free Text HPI NotesFree Text HPI NotesDenies fever, trauma, chest pain, shortness of breath, dizziness, diarrhea, pelvic pain, vaginal bleeding, vaginal discharge, flank pain, or urinary symptoms. Risk-Abd Pain F Under 40)( Ectopic Risk factors reviewed Review of Systems ROS StatementsAll systems rev neg except as marked. Focused Review of SystemsGIReports: Abdominal pain, Nausea, Vomiting (X 1 ). Past Medical History - AdultStated Complaint ABDOMINAL PAINAllergiesCoded Allergies:No Known Allergies (10/07/14) Home MedicationsDiscontinued Reported MedicationsIBUPROFEN (MOTRIN) 600 MG PO Q6H PRN PRN PAIN Pt reports no significant: Past medical history, Past surgical historySmoking status: Smoking status for patients 13 years old or older: Current every day smoker Date last smoked: 06/19/20 Packs per day: 1 Physical Exam Vital SignsVital SignsFirst Documented: Result Date Time Pulse Ox 99 06/19 1200 B/P 105/59 06/19 1200 B/P Mean 74 06/19 1200 Temp 98.1 06/19 1200 Pulse 67 06/19 1200 Resp 18 06/19 1200 O2 Delivery Room air 06/19 1332 Last Documented: Result Date Time Pulse Ox 100 06/19 1332 B/P 98/52 06/19 1332 B/P Mean 67 06/19 1332 O2 Delivery Room air 06/19 1332 Temp 98.5 06/19 1332 Pulse 58 06/19 1332 Resp 16 06/19 1332 Review of Vital Signs Reviewed Focused PEGeneral/Const General/Const Awake, Alert, Well appearingMS Head Head NormocephalicEyes Eyes PERRLEars/Nose/Throat Ears/Nose/Throat Airway patent, Mucous membranes moist, Pharynx NLResp/Chest Respiratory/Chest Breath sounds NL, Breath sounds = bilat, No respiratory distress, No rales, No rhonchi, No wheezingCardiovascular Cardiovascular Heart rate NL, Regular rhythm, Heart sounds NL, Peripheral circulation NLAbdomen/GI Abdomen/GI Atraumatic, Soft, McBurney's non-tender, No guarding, No rebound, BS normoactive, No distention, No hernia, No palpable mass, No pulsatile mass Tenderness/Guarding/Rebound Tender epigastric. Negative: Meredith's sign positive, Guarding voluntary, Guarding involuntary, Rebound localized, Rebound diffuse, Rigid to palpation. MS Back Back Inspection NL, Non-tender, No CVA tendernessSkin Skin Color NL, Warm, Dry, Turgor NLGenitourinary General Exam deferredRectum Rectum/Perineum Exam deferredNeurologic Neurologic Oriented X3, Speech NL, No motor deficits, No sensory deficits Interpretation Diagnostics Lab Results InterpretationResultsLaboratory Tests 06/19/20 1215:[Embedded Image Not Available]Laboratory Tests: 06/19 1215 Chemistry Sodium (135 - 148 mmol/L) 144 Potassium (3.5 - 5.1 mmol/L) 3.7 Chloride (101 - 109 mmol/L) 106 Carbon Dioxide (21 - 32 mmol/L) 26.4 Anion Gap (10 - 20 mmol/L) 15 BUN (3 - 21 mg/dL) 9 Creatinine (0.55 - 1.3 mg/dL) 0.84 Glomerular Filtr Rate (>=60 mL/min) > 60 BUN/Creatinine Ratio (10 - 20) 10.7 Glucose (74 - 106 mg/dL) 94 Calcium (8.4 - 10.2 mg/dL) 8.4 Total Bilirubin (0.0 - 1.0 mg/dL) 0.30 Direct Bilirubin (0.0 - 0.30 mg/dL) 0.10 AST (6 - 32 U/L) 8 ALT (12 - 78 U/L) 15 Total Alk Phosphatase (38 - 126 U/L) 64 Total Protein (6.5 - 8.4 g/dL) 6.8 Albumin (3.4 - 4.8 g/dL) 3.6 Globulin (1 - 10 G/DL) 3.2 Albumin/Globulin Ratio (0.75 - 1.50 RATIO) 1.1 Lipase (128 - 270 U/L) 159 Serum , Qual (NEGATIVE) NEGATIVE Hematology WBC (4.5 - 12.5 K/mm3) 6.3 RBC (3.7 - 5.2 mill/mm3) 3.96 Hgb (11.5 - 15.5 gram/dL) 12.2 Hct (36.0 - 46.0 %) 36.0 MCV (80 - 98 fL) 90.9 MCH (27.0 - 33.0 picogram) 30.8 MCHC (33.0 - 36.0 gram/dL) 33.9 RDW (11.6 - 16.2 %) 12.8 RDW Std Deviation (37.0 - 51.0 fL) 42.6 Plt Count (150 - 450 K/mm3) 253 MPV (6.7 - 11.0 fL) 10.0 Urines Urine Color (YELLOW) YELLOW Urine Appearance (CLEAR) clear Urine pH (5.0 - 8.0) 5.0 Ur Specific Cropsey (1.001 - 1.035) 1.025 Urine Protein (Neg - 15 mg/dL) neg Urine Glucose (UA) (NEGATIVE mg/dL) norm Urine Ketones (NEGATIVE mg/dL) neg Urine Blood (NEGATIVE Joseph/uL) neg Urine Nitrite (NEGATIVE) NEGATIVE Urine Bilirubin (NEGATIVE mg/dL) NEGATIVE Urine Urobilinogen (0.0 - 0.2 mg/dL) 1 H Ur Leukocyte Esterase (NEGATIVE uL) 25 Calin/uL (Trace) H Urine RBC (0 - 5 per HPF) 0-3 Urine WBC (0 - 5 per HPF) 0-5 Ur Epithelial Cells (Few per HPF) Moderate (5-10/hpf) Urine Bacteria (NONE per HPF) FEW Lab StatementLaboratory studies reviewed and considered in the medical decision-making. Point of Care TestingPulse Oximetry Pulse Ox % 99 On: Room air Interpretation Interpreted by me Time 1205 Re-Evaluation MDM Free Text MDM NotesFree Text MDM NotesUnremarkable abdominal work-up. No further labs or other diagnostics needed. The patient is discharged home with supportive care, a plan for symptom management/medication(s), and follow-up instructions that detail what to expect over the next 48 hours and what symptoms should prompt immediate return to the ED. Follow-up instructions have been explained in detail to the patient, and theinstructions have been provided in written format. The patient is comfortable with the plan of care and has expressed an understanding of the discharge instructions. The patient and/or caregivers are aware that any significant change in condition or worsening of symptoms should prompt an immediate return to this or the closest emergency department or a call to 911. )( Re-Evaluation/Progress #1Time of Re-Eval 1305)( Re-Eval Status ImprovedRe-Eval Abdomen Soft, Non-tender, No guarding, No rebound, BS normoactive, McBurney's non-tender, No distentionPain Re-Evaluation Pain improvedPlan Post Re-Eval Plan discharge ED CourseMedication(s) OrderedMedication(s) Ordered:Autonomic Drugs Sig/Huseyin Start time Last Medication Dose Route Stop Time Status Admin Belladonna Alkaloids/ 5 ML X1ED STA 06/19 1223 DC 06/19 Phenobarbital PO 06/19 1224 1239 Cardiovascular Drugs Sig/Huseyin Start time Last Medication Dose Route Stop Time Status Admin Lidocaine HCl 15 ML X1ED STA 06/19 1222 DC 06/19 PO 06/19 1223 1240 Gastrointestinal Drugs Sig/Huseyin Start time Last Medication Dose Route Stop Time Status Admin Al Hydrox/Mg Hydrox/ 30 ML X1ED STA 06/19 1222 DC 06/19 Simethicone PO 06/19 1223 1240 Patient Discharge Departure Vital Signs/ConditionVital SignsFirst Documented: Result Date Time Pulse Ox 99 06/19 1200 B/P 105/59 06/19 1200 B/P Mean 74 06/19 1200 Temp 98.1 06/19 1200 Pulse 67 06/19 1200 Resp 18 06/19 1200 O2 Delivery Room air 06/19 1332 Last Documented: Result Date Time Pulse Ox 100 06/19 1332 B/P 98/52 06/19 1332 B/P Mean 67 06/19 1332 O2 Delivery Room air 06/19 1332 Temp 98.5 06/19 1332 Pulse 58 06/19 1332 Resp 16 06/19 1332 All vital signs available at the time of this entry have been reviewed. Condition Stable Clinical ImpressionClinical ImpressionPrimary Impression: Gastritis Disposition DecisionDischarge )( Discharged to Home Yes )( Time 1311 )( Date 06/19/20 Discharge/Care PlanCounseled Regarding Diagnosis, Lab results, Prescriptions, Need for follow-up, When to return to EDPrescriptionsCARAFATE, ZOFRAN(Auto) PrescriptionsCurrent Visit ScriptsSUCRALFATE (CARAFATE 1 GM/10 ML) 1 GM PO AC HS SUCRALFATE (CARAFATE 1 GM/10 ML) 1 GM PO AC HS #400 ML 1 GM = 10ML ONDANSETRON ODT (ZOFRAN ODT) 4 MG PO Q6H PRN PRN NAUSEA/VOMITING ONDANSETRON ODT (ZOFRAN ODT) 4 MG PO Q6H PRN PRN NAUSEA/VOMITING #15 TABS Prescriptions Reviewed Risks, Benefits, Alternative treatmentPatient Instructions ED PEPTIC ULCER vs GASTRITISAdditional InstructionsPLEASE STOP DRINKING TEQUILA AND SMOKING IN ORDER TO HAVE LESS ABD PAIN. YOU SHOULD REALLY FOLLOW UP WITH A GI DOCTOR.Randy Miller MD: 2-3 Days Departure FormsWORK/SCHOOL EXCUSE VARIABLE Discharge NoteI have spoken with the patient and/or caregivers. I have explained the patient'scondition, diagnoses and treatment plan based on the information available to meat this time. I have answered the patient's and/or caregiver's questions and addressed any concerns. The patient and/or caregivers have as good an understanding of the patient's diagnosis, condition and treatment plan as can beexpected at this point. The vital signs have been stable. The patient's condition is stable and appropriate for discharge from the emergency department. The patient will pursue further outpatient evaluation with the primary care physician or other designated or consulting physician as outlined in the discharge instructions. The patient and/or caregivers are agreeable to this planof care and follow-up instructions have been explained in detail. The patient and/or caregivers have received these instructions in written format and have expressed an understanding of the discharge instructions. The patient and/or caregivers are aware that any significant change in condition or worsening of symptoms should prompt an immediate return to this or the closest emergency department or a call to 911. Quality MeasuresBP F/U for HTN BP in normal rangePreg Test for Women w/Abd Pain Female age 14-50, Any preg test orderedTobacco Screening/Cessation 18 years or older, Tobacco user, Counseled 3-10 minutes Fredrick Malcolm 06/19/20 1412:Patient Discharge Departure Supervising Physician Note MidLv Saw Pt AloneI have reviewed the PA/TAPE STRINGER's note and plan of care. I was available for consultation as needed at all times during the patient's visit in the emergency department. I agree with the clinical impression, plan and disposition. at 1344 at 1412RPT #:[id number] OF REPORTEDEmelifepoint health department [id number] ilable for patient [id number] [facility]
[2023-04-02 21:28] LABS: Specific Gravity 1.018 (1.005-1.030); Urine Bacteria <20 /HPF (<20); Urine Bilirubin NEGATIVE (Negative); Urine Blood Negative (Negative); Urine Clarity Extremely Turbid (Clear); Urine Color Yellow (Yellow); Urine Glucose NEGATIVE (Negative); Urine Mucus 1+ /HPF (None Seen); Urine Protein TRACE (Negative); Urine Urobilinogen 1+ (Normal)
[2023-04-02 21:31] LABS: Specific Gravity 1.017 (1.005-1.030)
[2023-04-02 21:33] LABS: Absolute Lymphocytes (CBC) 1.8 K/uL (0.7-4.9); Hematocrit 35.2 % (36.0-45.0); Lymphocytes % 34.5 % (15.3-44.8); MCV 84.4 fL (80-100); MPV 8.3 fL (7.6-11.3); Platelets 242 thou/uL (152-406); RBC Red Blood Cell Count 4.17 M/uL (3.86-4.86)
[2023-04-02 21:54] LABS: Potassium 3.3 mEq/L (3.5-5.1)
--- NOTE | 2023-04-02 22:58 | EDPHYS ---
Physician Documentation [facility] Name: Christina Kemp Age: 23 yrs Sex: Female : 2000 Arrival Date: 04/02/2023 Time: 20:39 Bed 16 Private MD: ED Physician Piotr Palomares HPI: 04/02 21:04 This 23 yrs old Female presents to ER via Ambulatory with complaints of EST 10 sb4 WEEKS GESTATION, Nausea/Vomiting. 21:04 The patient presents to the emergency department with nausea and vomiting, that started sb4 4 day(s) ago. The estimated gestational age is 10 weeks. course: care: none, Leakage of Fluid: none appreciated, Ultrasound: the patient has not had an ultrasound, Risk/complications: no obvious risks or complications are appreciated. Previous pregnancies:. Associated signs and symptoms: Pertinent negatives: abdominal pain, dysuria, ruptured membranes, shortness of breath, vaginal bleeding, vaginal discharge. The patient has not experienced similar symptoms in the past. The patient has not recently seen a physician. 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 Flu vaccine is not up to date. - Social history:: Smoking status: Patient denies any tobacco usage or history of. Patient/guardian denies using alcohol, street drugs. ROS: 21:04 Constitutional: Negative for fever, chills, and weight loss, sb4 21:04 Abdomen/GI: Positive for nausea and vomiting, 21:04 All other systems are negative, Exam: 21:04 Constitutional: This is a well developed, well nourished patient who is awake, alert, sb4 and in no acute distress. Head/Face: Normocephalic, atraumatic. Eyes: Extra-ocular motions intact. Periorbital areas with no swelling, redness, or edema. ENT: Mucous membranes moist. Cardiovascular: Regular rate and rhythm with a normal S1 and S2. Respiratory: Lungs have equal breath sounds bilaterally, clear to auscultation and percussion. No rales, rhonchi or wheezes noted. No increased work of breathing, no retractions or nasal flaring. Abdomen/GI: Soft, non-tender, no distension. Skin: Warm, dry with normal turgor. Normal color with no rashes, no lesions, and no evidence of cellulitis. MS/ Extremity: Pulses equal, no cyanosis. Neurovascular intact. Full, normal range of motion. Vital Signs: 20:50 BP 107 / 69; Pulse 85; Resp 17 S; Temp 97.6(TE); Pulse Ox 100% on R/A; Weight 71.67 kg lg3 (R); Height 5 ft. 5 in. (R); Pain 3/10; 21:50 BP 95 / 80; Pulse 84; Resp 20; Pulse Ox 100% ; Pain 0/10; jj7 20:50 Body Mass Index 26.29 (71.67 kg, 165.1 cm) lg3 20:50 Pain Scale: Adult lg3 21:50 Pain Scale: Adult jj7 MDM: 20:59 Patient medically screened. sb4 21:04 Differential diagnosis: morning sickness, hyperemesis gravidum, gastroenteritis. sb4 22:58 Data reviewed: vital signs, nurses notes, lab test result(s), radiologic studies, and sb4 as a result, I will discharge patient. Counseling: I had a detailed discussion with the patient and/or guardian regarding the historical points, exam findings, and any diagnostic results supporting the discharge/admit diagnosis, lab results, radiology results, the need for outpatient follow up, an OB/Gyne specialist, to return to the emergency department if symptoms worsen or persist or if there are any questions or concerns that arise at home. 04/02 21:04 Order name: Basic Metabolic Panel; Complete Time: 22:06 sb4 04/02 21:04 Order name: CBC with Diff; Complete Time: 21:38 sb4 04/02 21:04 Order name: Test, Urine; Complete Time: 21:31 sb4 04/02 21:04 Order name: Quantitative Hcg; Complete Time: 22:07 sb4 04/02 21:04 Order name: Urinalysis w/ reflexes; Complete Time: 21:31 sb4 04/02 21:35 Order name: Urine Culture EDUT 04/02 22:38 Order name: 1St Trimest Single 1St Fetus EDUT 04/02 21:04 Order name: IV Saline Lock; Complete Time: 21:18 sb4 04/02 21:04 Order name: Labs collected and sent; Complete Time: 21:18 sb4 Administered Medications: 21:19 Drug: NS 0.9% IV 1000 ml IV at 1 bolus Per protocol; 1000 mL bolus Route: IV; Rate: 1 jj7 bolus; Site: left antecubital; 21:19 Drug: Ondansetron IVP 4 mg IVP once; over 2 minutes Route: IVP; Site: left antecubital; jj7 22:16 Follow up: Response: Nausea is decreased jj7 22:48 Drug: NS 0.9% IV 1000 ml IV at 1 bolus Per protocol; 1000 mL bolus Route: IV; Rate: 1 jj7 bolus; Site: left antecubital; 23:07 Follow up: IV Status: Completed infusion; IV Intake: 300ml jj7 22:48 Drug: Potassium PO Effervescent Tablet 25 mEq PO once; dissolve in 4 ounces of water or jj7 juice Route: PO; 23:07 Follow up: Response: No adverse reaction jj7 22:48 Drug: Rocephin IV 1 grams IV at calculated rate once; Given slow IV push per pharmacy jj7 instructions Route: IV; Rate: calculated rate; Site: left antecubital; 23:07 Follow up: Response: No adverse reaction jj7 Disposition: 04/03 00:18 Co-signature as Attending Physician, Piotr Palomares MD I reviewed the patient's care rt provided by the Advanced Practice Provider and agree with the diagnosis and treatment plan. Disposition Summary: 04/02/23 22:58 Discharge Ordered Notes: Location: Home sb4 Problem: an ongoing problem sb4 Symptoms: have improved sb4 Condition: Stable sb4 Diagnosis - related nausea/vomiting sb4 - UTI/ Urinary tract infection, site not specified sb4 Followup: sb4 - With: Private Physician - When: 2 - 3 days - Reason: Recheck today's complaints, Re-evaluation by your physician Discharge Instructions: - Discharge Summary Sheet sb4 - Morning Sickness, [id number] sb4 - and Urinary Tract Infection sb4 Forms: - Medication Reconciliation Form sb4 - Thank You Letter sb4 - Antibiotic Education sb4 - Prescription Opioid Use sb4 - Patient Portal Instructions sb4 - Leadership Thank You Letter sb4 Prescriptions: - ondansetron 4 mg Oral Tablet,disintegrating - take 1 tablet ORAL route 2 to 3 times per day as needed for nausea and sb4 vomiting; 15 tablet; Refills: 0, Product Selection Permitted - Macrobid 100 mg Oral Capsule - take 1 capsule ORAL route every 12 hours for 7 days; 14 capsule; Refills: 0, sb4 Product Selection Permitted Signatures: Dispatcher [employer] EDRadha Hardy RN RN lg3 Jai Pa RN RN jjTonya Waddell PA-C PA-C sb4 Piotr Palomares MD MD rt Corrections: (The following items were deleted from the chart) 04/02 22:38 22:07 Transvaginal Ob+US.RAD.BRZ ordered. EDMS EDMS
--- NOTE | 2023-04-02 22:58 | ER ---
Nurse's Notes [facility] Name: Christina Kemp Age: 23 yrs Sex: Female : 2000 Arrival Date: 04/02/2023 Time: 20:39 Bed 16 Private MD: Diagnosis: related nausea/vomiting;UTI/ Urinary tract infection, site not specified Presentation: 04/02 20:50 Chief complaint: Patient states: N/V X4 days. i was supposed to have my first OB lg3 appointment today but i missed it because im sick. LMP 01/13/23. Coronavirus screen: Client denies travel out of the [place] in the last 14 days. At this time, the client does not indicate any symptoms associated with coronavirus-19. Ebola Screen: No symptoms or risks identified at this time. Initial Sepsis Screen: Does the patient meet any 2 criteria? No. Patient's initial sepsis screen is negative. Does the patient have a suspected source of infection? No. Patient's initial sepsis screen is negative. Risk Assessment: Do you want to hurt yourself or someone else? Patient reports no desire to harm self or others. Onset of symptoms is unknown. 20:50 Method Of Arrival: Ambulatory lg3 20:50 Acuity: KALEB 3 lg3 Triage Assessment: 20:53 General: Appears in no apparent distress. comfortable, Behavior is calm, cooperative. lg3 Pain: Complains of pain in abdomen Pain currently is 3 out of 10 on a pain scale. Quality of pain is described as crampy. EENT: No deficits noted. No signs and/or symptoms were reported regarding the EENT system. Neuro: No deficits noted. Womack Agitation-Sedation Scale (RASS): 0 - Alert and Calm Level of Consciousness is awake, alert, obeys commands, Oriented to person, place, time, situation. Cardiovascular: No deficits noted. Denies chest pain, shortness of breath, Capillary refill < 3 seconds Clubbing of nail beds is absent JVD is absent Patient's skin is warm and dry. Respiratory: No deficits noted. Airway is patent Respiratory effort is even, unlabored, Respiratory pattern is regular, symmetrical. GI: Abdomen is round non-distended, Reports lower abdominal pain, nausea, vomiting. : No deficits noted. No signs and/or symptoms were reported regarding the genitourinary system. Derm: No deficits noted. No signs and/or symptoms reported regarding the dermatologic system. Skin is intact, is healthy with good turgor, Skin is dry, Skin is normal, Skin temperature is warm. Musculoskeletal: No deficits noted. No signs and/or symptoms reported regarding the musculoskeletal system. Circulation, motion, and sensation intact. Range of motion: intact in all extremities. MANAGER ENVIRONMENTAL AFFAIRS: 20:53 3, Full Term 1, 1, Living 1, LMP 01/13/2023, unknown lg3 21:04 3, Full Term 1, Premature 0, 1, Living 1, unknown sb4 Historical: - Allergies: 20:53 No Known Allergies; lg3 - Home Meds: 20:53 None [Active]; lg3 - PMHx: 20:53 None; lg3 - PSHx: 20:53 None; lg3 - Immunization history:: Adult Immunizations up to date, Client reports having NOT received the Covid vaccine. Flu vaccine is not up to date. - Social history:: Smoking status: Patient denies any tobacco usage or history of. Patient/guardian denies using alcohol, street drugs. Screenin:05 [facility] ED Fall Risk Assessment (Adult) History of falling in the last 3 months, jj7 including since admission No falls in past 3 months (0 pts) Confusion or Disorientation No (0 pts) Intoxicated or Sedated No (0 pts) Impaired Gait No (0 pts) Mobility Assist Device Used No (0 pt) Altered Elimination No (0 pt) Score/Fall Risk Level 0 - 2 = Low Risk Oriented to surroundings, Maintained a safe environment, Educated pt \T\ family on fall prevention, incl call for assistance when getting out of bed. Abuse screen: Denies threats or abuse. Nutritional screening: No deficits noted. Tuberculosis screening: No symptoms or risk factors identified. Assessment: 20:50 Reassessment: SEE TRIAGE ASSESSMENT. GI: Abdomen is non-distended, Reports nausea, jj7 vomiting. Vital Signs: 20:50 BP 107 / 69; Pulse 85; Resp 17 S; Temp 97.6(TE); Pulse Ox 100% on R/A; Weight 71.67 kg lg3 (R); Height 5 ft. 5 in. (R); Pain 3/10; 21:50 BP 95 / 80; Pulse 84; Resp 20; Pulse Ox 100% ; Pain 0/10; jj7 20:50 Body Mass Index 26.29 (71.67 kg, 165.1 cm) lg3 20:50 Pain Scale: Adult lg3 21:50 Pain Scale: Adult jj7 ED Course: 20:42 Patient arrived in ED. jj6 20:43 Tonya Li PA-C is [facility]. sb4 20:43 Piotr Palomares MD is Attending Physician. sb4 20:53 Triage completed. lg3 20:53 Arm band placed on left wrist. lg3 20:57 Jai Pa, RJ is Primary Nurse. jj7 21:05 Patient has correct armband on for positive identification. Bed in low position. Call jj7 light in reach. Adult w/ patient. 21:05 No provider procedures requiring assistance completed. jj7 21:10 Inserted saline lock: 20 gauge in left antecubital area, using aseptic technique. Blood jj7 collected. 21:18 Basic Metabolic Panel Sent. jj7 21:18 CBC with Diff Sent. jj7 21:18 Test, Urine Sent. jj7 21:18 Quantitative Hcg Sent. jj7 21:19 Urinalysis w/ reflexes Sent. jj7 21:21 Warm blanket given. jj7 22:38 1St Trimest Single 1St Fetus In Process Unspecified. EDMS 23:09 IV discontinued, intact, bleeding controlled, No redness/swelling at site. Pressure jj7 dressing applied. Administered Medications: 21:19 Drug: NS 0.9% IV 1000 ml IV at 1 bolus Per protocol; 1000 mL bolus Route: IV; Rate: 1 jj7 bolus; Site: left antecubital; 21:19 Drug: Ondansetron IVP 4 mg IVP once; over 2 minutes Route: IVP; Site: left antecubital; jj7 22:16 Follow up: Response: Nausea is decreased jj7 22:48 Drug: NS 0.9% IV 1000 ml IV at 1 bolus Per protocol; 1000 mL bolus Route: IV; Rate: 1 jj7 bolus; Site: left antecubital; 23:07 Follow up: IV Status: Completed infusion; IV Intake: 300ml jj7 22:48 Drug: Potassium PO Effervescent Tablet 25 mEq PO once; dissolve in 4 ounces of water or jj7 juice Route: PO; 23:07 Follow up: Response: No adverse reaction jj7 22:48 Drug: Rocephin IV 1 grams IV at calculated rate once; Given slow IV push per pharmacy jj7 instructions Route: IV; Rate: calculated rate; Site: left antecubital; 23:07 Follow up: Response: No adverse reaction jj7 Medication: 23:09 VIS not applicable for this client. jj7 Intake: 23:07 IV: 300ml; Total: 300ml. jj7 Outcome: 22:58 Discharge ordered by MD. [email or web address] 23:08 Discharged to home ambulatory, with family, jj7 23:08 Condition: improved 23:08 Discharge instructions given to patient, Instructed on discharge instructions, follow up and referral plans. medication usage, Demonstrated understanding of instructions, follow-up care, medications, Prescriptions given X 2, 23:09 Patient left the ED. jj7 Signatures: Dispatcher [employer] EDMS Radha Garcia RN RN lg3 Teresa Salcido jj6 Jai Pa RN RN jj7 Tonya Li PA-Silvio PA-C sb4
[2023-04-03 00:40] VITALS: BP 95/80; TEMP 97.6; O2SAT 100
--- NOTE | 2023-04-03 13:40 | RAD REPORT ---
EXAM DESCRIPTION: US LIMITED CLINICAL HISTORY: ABD CRAMPING, COMPARISON: None TECHNIQUE: The exam was performed via transabdominal approach. Result: UTERUS: The uterus measures 10.4 cm longitudinally. GESTATION: There is a single, intrauterine . The estimated gestational age based on the fe francisca pole crown-rump length is 12 weeks, 0 days. cardiac activity is detected at 167 beats per m inute. OVARIES & ADNEXA: Ovaries are not visualized. No evidence of adnexal masses. PELVIS: There is no free fluid in the pelvis. IMPRESSION: Single, viable intrauterine , estimated gestational age of 12 weeks, 0 days by pole crown-rump length. cardiac activity present. Electronically signed by: Olvin Manjarrez MD 04/02/2023 10:47 PM ENAMEL FINISHER Due to temporary technical issues with the PACS/Fluency reporting system, reports are being signed by the in house radiologists without review as a courtesy to insure prompt reporting. The interpreting radiologist is fully responsible for the content of the report.
== END ==
LOC: ER 20:39
DX: O23.41 Unspecified infection of urinary tract in pregnancy, first trimester (principal); N39.0 Urinary tract infection, site not specified; Z3A.10 10 weeks gestation of pregnancy; Z28.310 Unvaccinated for COVID-19
CPT/HCPCS: 87088; 85025; 81001; 87086; 80048; 36415; 81025; 84702; 76801; J2405; J7030 ×2; J0696